=== PATIENT | male | born 1970 | race Two or more races ===

== ENCOUNTER 2016-02-27 15:07 | Inpatient (IN) | payer SELFPAY ==
--- NOTE | 2016-02-27 15:14 | ER Document Report ---
ED Medical Screen (RME) - General Stated Complaint: SYMPTOMS OF ALCOHOL WITHDRAWALS Notes: Patient is seeing things hearing voices family concerned about alcohol withdrawal although he had his last drink one hour ago. I greeted and performed a rapid initial assessment of this patient. Comprehensive ED assessment and evaluation of the patient, analysis of test results and completion of the medical decision making process will be conducted by additional ED providers. TRAVEL OUTSIDE OF THE [place] IN LAST 30 DAYS: No - Related Data Allergies/Adverse Reactions: Penicillins Allergy (Verified 07/28/15 05:39) Past Medical History - Past Medical History Cardiac Medical History: Reports: Hx Hypertension Pulmonary Medical History: Reports: Hx COPD Neurological Medical History: Reports: Hx Seizures Past Surgical History: Reports: Hx Abdominal Surgery, Hx Orthopedic Surgery - left shoulder - Immunizations Hx Diphtheria, Pertussis, Tetanus Vaccination: Yes
[2016-02-27] MEDS ORDERED: NORMAL SALINE 1000 ML 1,000 ML with POTASSIUM CHLORIDE 20 MEQ, MAGNESIUM SULFATE 8 MEQ,... IV PRN ×10 (15:16→15:59)
[2016-02-27] MEDS ORDERED: LORAZEPAM INJ 2 MG/1 ML VIAL IV ONE ×2 (16:00→16:55)
[2016-02-27] MEDS ORDERED: LORAZEPAM INJ 2 MG/1 ML VIAL IV PRN (16:00)
--- NOTE | 2016-02-27 16:04 | ER Document Report ---
ED General - General Chief Complaint: Alcohol Withdrawl Stated Complaint: SYMPTOMS OF ALCOHOL WITHDRAWALS Time seen by provider: 16:02 Mode of Arrival: Ambulatory Information source: Patient Notes: This is a 45-year-old man with a history of chronic alcohol dependency, alcoholic pancreatitis, alcohol withdrawal seizures. The patient is brought into the emergency room today because of confusion, hallucinations in the setting of decreased alcohol intake. The patient's significant other is at the bedside and is concern for alcohol withdrawal seizures. TRAVEL OUTSIDE OF THE [place] IN LAST 30 DAYS: No - HPI Onset: Last week Onset/Duration: Gradual Quality of pain: Dull Severity: Moderate Pain Level: Denies Associated symptoms: Other. denies: Chest pain, Fever Exacerbated by: Denies Relieved by: Denies Similar symptoms previously: Yes Recently seen / treated by doctor: Yes - Related Data Allergies/Adverse Reactions: Penicillins Allergy (Verified 07/28/15 05:39) Past Medical History - General Information source: Patient - Social History Smoking Status: Current Every Day Smoker Cigarette use (# per day): Yes - 1 pack per day Chew tobacco use (# tins/day): No Smoking Education Provided: No Frequency of alcohol use: Heavy Drug Abuse: None Lives with: Spouse/Significant other Family History: Reviewed & Not Pertinent Patient has suicidal ideation: No Patient has homicidal ideation: No - Past Medical History Cardiac Medical History: Reports: Hx Hypertension Pulmonary Medical History: Reports: Hx COPD Neurological Medical History: Reports: Hx Seizures Renal/ Medical History: Denies: Hx Peritoneal Dialysis Past Surgical History: Reports: Hx Abdominal Surgery, Hx Orthopedic Surgery - left shoulder - Immunizations Hx Diphtheria, Pertussis, Tetanus Vaccination: Yes Review of Systems - Review of Systems Constitutional: denies: Chills, Fever EENT: No symptoms reported Cardiovascular: No symptoms reported Respiratory: No symptoms reported Gastrointestinal: See HPI Genitourinary: No symptoms reported Male Genitourinary: No symptoms reported Musculoskeletal: No symptoms reported Skin: No symptoms reported Hematologic/Lymphatic: No symptoms reported Neurological/Psychological: See HPI Physical Exam - Vital signs Vitals: Temp Pulse Resp BP Pulse Ox 97.9 F 100 16 149/94 H 95 02/27/16 15:14 02/27/16 15:14 02/27/16 15:14 02/27/16 15:14 02/27/16 15:14 Notes: Physical exam: GENERAL: 45-year-old man, alert, confused, tremulous HEAD: Atraumatic, normocephalic. EYES: Pupils equal round and reactive to light, extraocular movements intact, sclera anicteric, conjunctiva are normal. ENT: TMs normal, nares patent, oropharynx clear without exudates. Moist mucous membranes. NECK: Normal range of motion, supple without lymphadenopathy or JVD. LUNGS: Breath sounds clear to auscultation bilaterally and equal. No wheezes rales or rhonchi. HEART: Regular rate and rhythm without murmurs, rubs or gallops. ABDOMEN: Soft, nontender, normoactive bowel sounds. No guarding, no rebound. No masses appreciated. EXTREMITIES: Normal range of motion, no pitting or edema. No clubbing or cyanosis. NEUROLOGICAL: Cranial nerves II through XII grossly intact. Patient is moving all extremities, he is confused, doesn't quite know where he is. PSYCH: Confused SKIN: Warm, Dry, normal turgor, no rashes or lesions noted. Course - Vital Signs Vital signs: Temp Pulse Resp BP Pulse Ox 98.4 F 86 19 125/79 94 02/27/16 18:05 02/27/16 18:05 02/27/16 19:01 02/27/16 19:00 02/27/16 19:01 - Laboratory Result Diagrams: 02/27/16 15:25 02/27/16 15:25 Laboratory results interpreted by me: 02/27/16 02/27/16 02/27/16 15:25 15:25 15:25 MCV 98 H RDW 16.0 H Carbon Dioxide 18 L Anion Gap 21 H BUN 6 L Glucose 253 H AST 204 H ALT 225 H Lipase 545.5 H Urine Glucose (UA) Urine Blood Serum Alcohol 339 H* 02/27/16 16:15 MCV RDW Carbon Dioxide Anion Gap BUN Glucose AST ALT Lipase Urine Glucose (UA) 50 H Urine Blood SMALL H Serum Alcohol - EKG Interpretation by Me Rate: Normal Rhythm: NSR - EKG shows normal sinus rhythm with a ventricular rate of 83, no acute ST-T wave changes. The QTC is 428 Critical Care Note - Critical Care Note Total time excluding time spent on procedures (mins): 60 Discharge - Discharge Clinical Impression: alcoholic pancreatitis, acute alcohol withdrawal Condition: Stable Disposition: ADMITTED INPATIENT Admitting Provider: Hospitalist - Dr. Lizarraga Unit Admitted: IMCU
[2016-02-27 16:10] LABS: ALANINE AMINOTRANSFERASE 225 U/L (21-72); ALBUMIN 4.9 g/dL (3.5-5.0); ALKALINE PHOSPHATASE 79 U/L (38-126); ASPARTATE AMINO TRANSFERASE 204 U/L (17-59); BILIRUBIN,TOTAL 0.6 mg/dL (0.2-1.3); BLOOD UREA NITROGEN 6 mg/dL (7-20); CARBON DIOXIDE 18 mmol/L (22-30); CHLORIDE 100 mmol/L (98-107); CREATININE RESULT 0.64 mg/dL (0.52-1.25); GLUCOSE 253 mg/dL (75-110); LIPASE 545.5 U/L (23-300); TOTAL PROTEIN 7.5 g/dL (6.3-8.2)
[2016-02-27 16:17] LABS: POTASSIUM 4.4 mmol/L (3.6-5.0); SODIUM 138.8 mmol/L (137-145)
[2016-02-27] MEDS ORDERED: LORAZEPAM INJ 2 MG/1 ML VIAL IM ONE (16:17)
[2016-02-27 16:19] LABS: ANION GAP 21 (5-19)
[2016-02-27 16:34] LABS: APPEARANCE,URINE CLEAR; BILIRUBIN,URINE NEGATIVE (NEGATIVE); GLUCOSE, URINE 50 mg/dL (NEGATIVE); KETONES,URINE NEGATIVE (NEGATIVE); LEUKOCYTE ESTERASE,URINE NEGATIVE (NEGATIVE); NITRITE,URINE NEGATIVE (NEGATIVE); PROTEIN,URINE NEGATIVE (NEGATIVE); URINE SPECIFIC GRAVITY 1.002; UROBILINOGEN,URINE NEGATIVE mg/dL (<2.0)
[2016-02-27 16:47] LABS: MAGNESIUM 1.8 mg/dL (1.6-2.3)
[2016-02-27] MEDS ORDERED: NORMAL SALINE 1000 ML 1,000 ML IV PRN (16:56)
[2016-02-27 16:57] LABS: URINE BARBITURATES SCREEN NEGATIVE; URINE METHADONE SCREEN NEGATIVE; URINE PHENCYCLIDINE SCREEN NEGATIVE
[2016-02-27 18:27] LABS: ABSOLUTE EOSINOPHILS # (AUTO) 0.1 10^3/uL (0.0-0.6); ABSOLUTE LYMPHOCYTES (AUTO) 1.8 10^3/uL (0.5-4.7); ABSOLUTE MONOCYTES (AUTO) 0.4 10^3/uL (0.1-1.4); ABSOLUTE NEUT (AUTO) 2.3 10^3/uL (1.7-8.2); BASOPHILS % (AUTO) 0.9 % (0-2); EOSINOPHILS % (AUTO) 1.9 % (0-6); HEMATOCRIT 47.2 % (37.9-51.0); HEMOGLOBIN 15.2 g/dL (13.5-17.0); HGB HCT DIFFERENCE -1.6; MEAN CORPUSCULAR HEMOGLOBIN 31.4 pg (27.0-33.4); MEAN CORPUSCULAR HGB CONC 32.2 g/dL (32.0-36.0); MEAN CORPUSCULAR VOLUME 98 fl (80-97); MONOCYTES % (AUTO) 7.8 % (3-13); RED BLOOD COUNT 4.84 10^6/uL (4.35-5.55); SEGMENTED NEUTROPHILS % (AUTO) 50.4 % (42-78); WHITE BLOOD COUNT 4.5 10^3/uL (4.0-10.5)
--- NOTE | 2016-02-27 18:35 | EKG REPORT ---
SEVERITY:- OTHERWISE NORMAL ECG - SINUS RHYTHM LOW VOLTAGE IN FRONTAL LEADS : Confirmed by: Sandra Ledezma MD 27-Feb-2016 18:34:53
[2016-02-27] MEDS: NORMAL SALINE 1000 ML 1,000 ML IV PRN (20:23)
[2016-02-27] MEDS ORDERED: DEXTROSE 40% GEL 15 GM TUBE PO PRN ×2 (20:54)
[2016-02-27] MEDS ORDERED: INSULIN LISPRO 100 UNIT/ML 3 ML VIAL SUBCUT PRN (20:54)
[2016-02-27] MEDS ORDERED: GLUCAGON,HUMAN RECOMB 1 MG INJ IM PRN (20:54)
[2016-02-27] MEDS ORDERED: NORMAL SALINE 1000 ML 2,000 ML IV ONE (20:54)
[2016-02-27] MEDS ORDERED: DEXTROSE 50%-WATER 25 GM/50 ML DISP.SYRIN IV PRN ×2 (20:54)
[2016-02-27] MEDS ORDERED: PROMETHAZINE HCL INJ 25 MG/1 ML VIAL IV PRN (22:08)
[2016-02-27 22:17] LABS: ANION GAP 13 (5-19); BLOOD UREA NITROGEN 6 mg/dL (7-20); CALCIUM 8.1 mg/dL (8.4-10.2); CARBON DIOXIDE 21 mmol/L (22-30); CHLORIDE 109 mmol/L (98-107); CREATININE RESULT 0.61 mg/dL (0.52-1.25); GLUCOSE 81 mg/dL (75-110); POTASSIUM 4.3 mmol/L (3.6-5.0); SODIUM 143.2 mmol/L (137-145)
[2016-02-27] MEDS ORDERED: NICOTINE 21 MG/24 HR PATCH.TD24 TD PRN (22:22)
--- NOTE | 2016-02-27 22:26 | PDOC H&P ---
History of Present Illness Admission Date/PCP: 02/27/16 20:24 [facility] Patient complains of: Abdominal pain, auditory and visual hallucinations History of Present Illness: SHAQ ROCHE is a 45 year old Armenian male, with known ongoing alcohol abuse, up to a gallon of vodka a day, who presents to the emergency room for evaluation of above complaints. Patient has been discussed with emergency room physician who evaluated the patient. Describes a 2 day history of several episodes of nausea and nonbloody, non- coffee ground emesis, along with "the shakes," confusion, and approximately 24- hour history of auditory and visual hallucinations. Also describes the onset during the same time span of stabbing left lower quadrant abdominal pain. Nothing makes the pain worse. Little if any by mouth intake over the past 3 days.. Denies diarrhea or dysuria. Laboratory results are listed in [facility] and are reviewed. X-ray summary results are listed below, with full report(s) reviewed. . EKG reviewed. And compared to prior tracing from September 24 of last year. 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 Pack of cigarettes per day. Alcohol use as noted above. Rare marijuana. Allergies/adverse reactions are listed in [facility] and are reviewed. NKDA. Home medications none REVIEW OF SYSTEMS: Constitutional: See history and present illness. Eyes: Wears glasses. ENT: No swallowing problems or complaints. No hearing problems or complaints. Pulmonary: No current complaints. Cardiovascular: No current complaints, including chest pain. Gastrointestinal: See history and present illness. Skin: No current complaints, including rashes. Hematologic: Easy bruising. Neurologic: No current complaints, including numbness or tingling. Musculoskeletal: Joint pain from arthritis. Psychiatric: Anxiety depression; denies suicidal or homicidal ideation. See history and present illness. Endocrine: No current complaints, including polyuria. Genitourinary: No current complaints, including dysuria. PHYSICAL EXAMINATION: 5 feet 10 inches tall. 73.2 kg. BMI 23.2 kg/m. The pressure 132/82. Pulse 84 and regular. 94% saturation on room air. Respirations are 20 and unlabored. Temperature 98.4. Thin otherwise well-developed chronically ill-appearing male who appears a number of years older than his stated age. Appears not to feel very well. Awake alert pleasant and cooperative however. Mildly anxious. No agitation. No tremor. Ex girlfriend is present at his side; patient approves. Skin is warm and dry. No grossly obvious evidence of rash in areas of skin examined. No subcutaneous nodules palpated. ENT: Hearing grossly normal to normal conversation. Tongue midline on protrusion pink and slightly tacky Eyes: No scleral icterus. Pupils equal and reactive to light at 4 mm. [place] conjunctivae. Neck is supple and nontender to gentle active range of motion and palpation. Midline trachea. No palpable thyroid nodule mass enlargement or tenderness. Lymphatic: No palpable cervical or clavicular nodes. Neck and lymphatic exams limited by patient body habitus. Psychiatric: Fair insight into acute and chronic medical issues. Oriented to time location and why here. Lungs: Auscultation reveals clear and equal breath sounds bilaterally. No use of accessory respiratory muscles. Cardiovascular: Heart regular rate and rhythm, without gallop murmur or rub. No carotid or abdominal aortic bruits. No ankle or pedal edema. Faintly palpable dorsalis pedis pulses. Abdomen:soft, nontender other than scant left lower quadrant discomfort to palpation with positive bowel sounds. No upper abdominal mass or organomegaly is palpated. Extremities: Feet are warm and dry. No calf tenderness to compression. No grossly obvious visual evidence of calf swelling. Gentle manipulation of lower extremities fails to reveal any obvious evidence of injury or instability to knees hips or ankles. Neurologic: Moves upper extremities grossly normally. Patellar reflexes absent. Absent Babinski. Light touch is intact at feet. Dorsiflexion and plantarflexion of feet 5 / 5 and symmetric. Past Medical History Cardiac Medical History: Reports: Hypertension Denies: Congestive Heart Failure, DVT, Myocardial Infarction, Hyperlipidema, Pulmonary Embolism EENT Medical History: Reports: Eyes - Reading glasses Denies: Ears, Throat Neurological Medical History: Reports: Seizures - [place] secondary to alcohol withdrawal. Denies: Hemorrhagic CVA, Ischemic CVA Endocrine Medical History: Denies: Diabetes Mellitus Type 1, Diabetes Mellitus Type 2, Hyperthyroidism, Hypothyroidism Renal/ Medical History: Reports: Chronic Kidney Disease Denies: Nephrolithiasis GI Medical History: Denies: Cirrhosis, Hepatitis, Peptic Ulcer Disease Musculoskeltal Medical History: Reports: Arthritis Skin Medical History: Reports: None Denies: Eczema, Psoriasis Psychiatric Medical History: Reports: Alcohol Dependency, Depression, General Anxiety Disorder, Tobacco Dependency Denies: Substance Abuse Infectious Medical History: Denies: Hepatitis B, Hepatitis C Past Surgical History Past Surgical History: Reports: Orthopedic Surgery - left shoulder Social History Information Source: Patient, Friend, Emergency Med Personnel, [facility] Records Lives with: Spouse/Significant other Smoking Status: Current Every Day Smoker Frequency of Alcohol Use: Heavy Hx Recreational Drug Use: Yes Drugs: Marijuana Hx Prescription Drug Abuse: No - Advance Directive Resuscitation Status: Full Code Surrogate healthcare decision maker:: ex Girl friend Zoila Navarrete [phone] Family History Family History: Reviewed & Not Pertinent Parental Family History Reviewed: Yes Children Family History Reviewed: Yes Sibling(s) Family History Reviewed.: Yes Medication/Allergy Home Medications: No Home Medications 02/27/16 Allergies/Adverse Reactions: Penicillins Allergy (Verified 07/28/15 05:39) Physical Exam Vital Signs: Temp Pulse Resp BP Pulse Ox 98.4 F 86 19 132/82 H 95 02/27/16 18:05 02/27/16 18:05 02/27/16 20:01 02/27/16 20:00 02/27/16 20:01 Results Impressions: Chest X-Ray 02/27/16 19:10 IMPRESSION: Retrocardiac opacity may represent a developing left lower lobe pneumonitis. Recommend clinical correlation. Assessment & Plan - Diagnosis (2) Acidosis Is this a current diagnosis for this admission?: YesPlan: Serial labs. Vigorous IV fluid hydration. (3) Acute alcoholic pancreatitis Qualifiers: Acute pancreatitis complication: unspecified Qualified Code(s): K85.20 - Alcohol induced acute pancreatitis without necrosis or infection Is this a current diagnosis for this admission?: YesPlan: Standard pancreatitis protocol, including vigorous IV fluid hydration, IV Pepcid for gastritis prophylaxis, ice chips only, strict intake and output, and when necessary medication for control of pain and nausea and vomiting. I have strongly encouraged patient not to get out of bed without notifying staff , to avoid a fall with injury. Knee high SCDs for DVT prophylaxis, along with subcutaneous Lovenox . Impression and plans were discussed with patient and former girlfriend, both of whom concur. Time spent in evaluation and management of patient: 65 minutes. (4) DVT prophylaxis Is this a current diagnosis for this admission?: Yes (5) Elevated LFTs Is this a current diagnosis for this admission?: YesPlan: Likely secondary to alcohol abuse. Follow-up chemistry. (6) Hallucinations due to alcohol Is this a current diagnosis for this admission?: YesPlan: Alcohol withdrawal protocol, using parenteral Ativan, and daily banana bag. (7) Hepatic hemangioma Is this a current diagnosis for this admission?: YesPlan: Noted on prior CT scan, with follow-up recommended. CT to be ordered during this hospital stay. (8) Hyperglycemia Is this a current diagnosis for this admission?: YesPlan: Accu-Cheks with appropriate sliding scale coverage. (9) Alcohol dependency Qualifiers: Substance use status: with intoxication Complication of substance- induced condition: with unspecified complication Qualified Code(s): F10.229 - Alcohol dependence with intoxication, unspecified Is this a current diagnosis for this admission?: Yes (10) Tobacco abuse Is this a current diagnosis for this admission?: YesPlan: When necessary nicotine patch. (11) HTN (hypertension) Qualifiers: Hypertension type: essential hypertension Qualified Code(s): I10 - Essential (primary) hypertension Is this a current diagnosis for this admission?: YesPlan: Currently on no medication for same. When necessary antihypertensive. - Inpatient Certification Based on my medical assessment, after consideration of the patient's comorbidities, presenting symptoms, or acuity I expect that the services needed warrant INPATIENT care.: Yes I certify that my determination is in accordance with my understanding of Medicare's requirements for reasonable and necessary INPATIENT services [42 CFR 412.3e].: Yes Medical Necessity: Significant Comorbidiites Make Outpatient Treatment Too Risky , Need For IV Fluids, Need For Continuous Telemetry Monitoring, Need for Pain Control, Risk of Complication if Not Cared For in Hospital, Risk of Diagnosis Which Will Require Inpatient Eval/Care/Monitoring Post Hospital Care: D/C or Transfer Summary
[2016-02-27] MEDS ORDERED: RINGERS SOLUTION,LACTATED 1,000 ML IV ONE (23:08)
[2016-02-28] MEDS: LORAZEPAM INJ 2 MG/1 ML VIAL (TAPER DOSING) IV SCH ×4 (01:30→17:34)
[2016-02-28] MEDS: NORMAL SALINE 1000 ML 1,000 ML IV PRN ×2 (02:35→06:07)
[2016-02-28] MEDS ORDERED: LORAZEPAM INJ 2 MG/1 ML VIAL ONE (05:54)
[2016-02-28] MEDS: ACETAMINOPHEN 325 MG TABLET PO PRN (06:05)
[2016-02-28] MEDS ORDERED: ENOXAPARIN SODIUM INJ 40 MG/0.4 ML DISP.SYRIN SUBCUT SCH (08:00)
[2016-02-28 08:03] LABS: ABSOLUTE EOSINOPHILS # (AUTO) 0.2 10^3/uL (0.0-0.6); ABSOLUTE LYMPHOCYTES (AUTO) 1.6 10^3/uL (0.5-4.7); ABSOLUTE MONOCYTES (AUTO) 0.3 10^3/uL (0.1-1.4); BASOPHILS % (AUTO) 0.6 % (0-2); EOSINOPHILS % (AUTO) 2.3 % (0-6); HEMATOCRIT 39.7 % (37.9-51.0); HEMOGLOBIN 13.2 g/dL (13.5-17.0); HGB HCT DIFFERENCE -0.1; LYMPHOCYTES % (AUTO) 22.4 % (13-45); MEAN CORPUSCULAR HEMOGLOBIN 31.6 pg (27.0-33.4); MEAN CORPUSCULAR HGB CONC 33.2 g/dL (32.0-36.0); MEAN CORPUSCULAR VOLUME 95 fl (80-97); MONOCYTES % (AUTO) 4.5 % (3-13); RED BLOOD COUNT 4.16 10^6/uL (4.35-5.55); RED CELL DISTRIBUTION WIDTH 15.6 % (11.5-14.0); SEGMENTED NEUTROPHILS % (AUTO) 70.2 % (42-78); WHITE BLOOD COUNT 7.2 10^3/uL (4.0-10.5)
[2016-02-28 08:12] LABS: ALANINE AMINOTRANSFERASE 151 U/L (21-72); ALBUMIN 3.2 g/dL (3.5-5.0); ALKALINE PHOSPHATASE 61 U/L (38-126); ANION GAP 7 (5-19); ASPARTATE AMINO TRANSFERASE 119 U/L (17-59); BILIRUBIN,TOTAL 1.1 mg/dL (0.2-1.3); BLOOD UREA NITROGEN 6 mg/dL (7-20); CALCIUM 8.3 mg/dL (8.4-10.2); CARBON DIOXIDE 25 mmol/L (22-30); CHLORIDE 103 mmol/L (98-107); CHOLESTEROL 189.25 mg/dL (0-200); CREATININE RESULT 0.55 mg/dL (0.52-1.25); Direct HDL 108 mg/dL (>40); GLUCOSE 71 mg/dL (75-110); POTASSIUM 4.2 mmol/L (3.6-5.0); SODIUM 134.8 mmol/L (137-145); TOTAL PROTEIN 5.7 g/dL (6.3-8.2); TRIGLYCERIDES 31 mg/dL (<150)
[2016-02-28 08:22] LABS: DIRECT LDL 45 mg/dL (<100)
--- NOTE | 2016-02-28 08:57 | PDOC PROGRESS REPORT ---
Subjective Progress Note for:: 02/28/16 Subjective:: Patient reports dizziness and some generalized weakness. No nausea or vomiting. Patient wants to eat. No diarrhea. No chills or fever. Occasional cough. Denies shortness of breath at this time. Physical Exam Vital Signs: Temp Pulse Resp BP Pulse Ox 98.1 F 84 20 137/80 H 93 02/28/16 08:03 02/28/16 08:11 02/28/16 08:03 02/28/16 08:03 02/28/16 08:03 Intake & Output 02/27/16 02/28/16 02/29/16 06:59 06:59 06:59 Intake Total 842 Output Total 400 Balance 442 Weight 76.5 kg General appearance: PRESENT: no acute distress, cooperative Head exam: PRESENT: normocephalic Eye exam: PRESENT: EOMI Mouth exam: PRESENT: moist, neck supple Neck exam: ABSENT: JVD Respiratory exam: PRESENT: clear to auscultation iván. ABSENT: rhonchi, wheezes Cardiovascular exam: PRESENT: RRR. ABSENT: gallop GI/Abdominal exam: PRESENT: normal bowel sounds, soft. ABSENT: distended, tenderness Extremities exam: ABSENT: pedal edema Neurological exam: PRESENT: alert, awake Skin exam: PRESENT: dry, warm. ABSENT: cyanosis Results Laboratory Results: 02/28/16 07:17 02/28/16 07:17 02/28/16 02/28/16 07:17 07:17 WBC 7.2 RBC 4.16 L Hgb 13.2 L Hct 39.7 MCV 95 MCH 31.6 MCHC 33.2 RDW 15.6 H Plt Count 173 Seg Neutrophils % 70.2 Lymphocytes % 22.4 Monocytes % 4.5 Eosinophils % 2.3 Basophils % 0.6 Absolute Neutrophils 5.0 Absolute Lymphocytes 1.6 Absolute Monocytes 0.3 Absolute Eosinophils 0.2 Absolute Basophils 0.0 Sodium 134.8 L Potassium 4.2 Chloride 103 Carbon Dioxide 25 Anion Gap 7 BUN 6 L Creatinine 0.55 Est GFR ( Amer) > 60 Est GFR (Non-Af Amer) > 60 Glucose 71 L Calcium 8.3 L Total Bilirubin 1.1 AST 119 H ALT 151 H Alkaline Phosphatase 61 Total Protein 5.7 L Albumin 3.2 L Triglycerides 31 Cholesterol 189.25 LDL Cholesterol Direct 45 VLDL Cholesterol 6.0 L HDL Cholesterol 108 Impressions: Chest X-Ray 02/27/16 19:10 IMPRESSION: Retrocardiac opacity may represent a developing left lower lobe pneumonitis. Recommend clinical correlation. Assessment & Plan - Diagnosis (1) Alcohol withdrawal Qualifiers: Complication of substance-induced condition: with unspecified complication Qualified Code(s): F10.239 - Alcohol dependence with withdrawal, unspecified Is this a current diagnosis for this admission?: Yes (2) Aspiration pneumonia Qualifiers: Aspiration pneumonia type: unspecified Laterality: left Lung location: lower lobe of lung Qualified Code(s): J69.0 - Pneumonitis due to inhalation of food and vomit (3) Elevated LFTs Is this a current diagnosis for this admission?: Yes (4) HTN (hypertension) Qualifiers: Hypertension type: essential hypertension Qualified Code(s): I10 - Essential (primary) hypertension Is this a current diagnosis for this admission?: Yes (5) COPD (chronic obstructive pulmonary disease) Qualifiers: COPD type: unspecified COPD Qualified Code(s): J44.9 - Chronic obstructive pulmonary disease, unspecified Is this a current diagnosis for this admission?: Yes (6) History of seizure Is this a current diagnosis for this admission?: Yes - Time Time Spent with patient: 25-34 minutes - Plan Summary Plan Summary: Continue IV hydration and vitamin supplementation. Continue Ativan. Obtain CT scan of the head without contrast. We'll try to put the patient on clear liquid diet. Check TSH and monitor electrolytes. Begin antibiotic for aspiration pneumonia.
[2016-02-28] MEDS: FAMOTIDINE INJ/PF 20 MG/2 ML SDV IV SCH ×2 (09:43→21:24)
[2016-02-28] MEDS: DOCUSATE SODIUM 100 MG CAPSULE PO SCH ×2 (09:43→17:33)
[2016-02-28] MEDS: LEVOFLOXACIN 750 MG/D5W RTU 150 ML IV SCH (09:44)
[2016-02-28] MEDS ORDERED: CLINDAMYCIN 600 MG/D5W RTU 600 MG/50 ML RTUPB IV ONE (10:00)
[2016-02-28] MEDS ORDERED: ENOXAPARIN SODIUM INJ 40 MG/0.4 ML DISP.SYRIN SUBCUT ONE (10:00)
[2016-02-28] MEDS: CLINDAMYCIN 600 MG/D5W RTU 600 MG/50 ML RTUPB IV SCH ×2 (13:36→21:23)
[2016-02-28] MEDS: NORMAL SALINE 1000 ML 1,000 ML with THIAMINE HCL 100 MG, MVI, ADULT NO.1 WITH VIT K 10 ... IV PRN ×4 (15:28)
[2016-02-28] MEDS: MORPHINE SULFATE 10 MG/ML INJ IV PRN (22:04)
[2016-02-29] MEDS ORDERED: LORAZEPAM INJ 2 MG/1 ML VIAL IV PRN (01:34)
[2016-02-29] MEDS: LORAZEPAM INJ 2 MG/1 ML VIAL IV PRN ×3 (02:49→22:10)
[2016-02-29] MEDS: ACETAMINOPHEN 325 MG TABLET PO PRN ×2 (04:00→21:51)
[2016-02-29] MEDS: NORMAL SALINE 1000 ML 1,000 ML IV PRN ×2 (04:37→23:07)
[2016-02-29] MEDS: CLINDAMYCIN 600 MG/D5W RTU 600 MG/50 ML RTUPB IV SCH ×3 (05:43→21:49)
[2016-02-29 06:38] LABS: HEMATOCRIT 40.7 % (37.9-51.0); HEMOGLOBIN 13.3 g/dL (13.5-17.0); HGB HCT DIFFERENCE -0.8; MEAN CORPUSCULAR HEMOGLOBIN 31.2 pg (27.0-33.4); MEAN CORPUSCULAR HGB CONC 32.6 g/dL (32.0-36.0); MEAN CORPUSCULAR VOLUME 96 fl (80-97); RED BLOOD COUNT 4.25 10^6/uL (4.35-5.55); RED CELL DISTRIBUTION WIDTH 15.9 % (11.5-14.0); WHITE BLOOD COUNT 7.4 10^3/uL (4.0-10.5)
[2016-02-29 06:55] LABS: ANION GAP 9 (5-19); BLOOD UREA NITROGEN 8 mg/dL (7-20); CALCIUM 8.8 mg/dL (8.4-10.2); CARBON DIOXIDE 25 mmol/L (22-30); CHLORIDE 100 mmol/L (98-107); CREATININE RESULT 0.64 mg/dL (0.52-1.25); GLUCOSE 95 mg/dL (75-110); MAGNESIUM 1.5 mg/dL (1.6-2.3); PHOSPHORUS 4.7 mg/dL (2.5-4.5); POTASSIUM 3.8 mmol/L (3.6-5.0)
[2016-02-29] MEDS: ENOXAPARIN SODIUM INJ 40 MG/0.4 ML DISP.SYRIN SUBCUT SCH (07:34)
[2016-02-29] MEDS: MAGNESIUM SULFATE/D5W 1 GM/100 ML RTUPB IV SCH ×2 (08:25→09:32)
[2016-02-29] MEDS: FAMOTIDINE INJ/PF 20 MG/2 ML SDV IV SCH ×2 (09:31→21:49)
[2016-02-29] MEDS: DOCUSATE SODIUM 100 MG CAPSULE PO SCH ×2 (09:32→17:29)
[2016-02-29] MEDS: LEVOFLOXACIN 750 MG/D5W RTU 150 ML IV SCH (09:33)
--- NOTE | 2016-02-29 11:23 | PDOC PROGRESS REPORT ---
Subjective Progress Note for:: 02/29/16 Subjective:: Patient is confused. Physical Exam Vital Signs: Temp Pulse Resp BP Pulse Ox 97.8 F 62 19 144/87 H 96 02/29/16 07:32 02/29/16 10:00 02/29/16 07:32 02/29/16 07:32 02/29/16 07:32 Intake & Output 02/28/16 02/29/16 03/01/16 06:59 06:59 06:59 Intake Total 842 4703 Output Total 400 1400 Balance 442 3303 Weight 76.5 kg 73.3 kg General appearance: PRESENT: no acute distress, well-developed, well-nourished Head exam: PRESENT: atraumatic, normocephalic Eye exam: PRESENT: conjunctiva pink Mouth exam: PRESENT: moist, tongue midline Neck exam: ABSENT: carotid bruit, JVD, lymphadenopathy, thyromegaly Respiratory exam: PRESENT: rhonchi - Coarse rhonchi bilaterally.. ABSENT: rales , wheezes Cardiovascular exam: PRESENT: RRR. ABSENT: diastolic murmur, rubs, systolic murmur GI/Abdominal exam: PRESENT: normal bowel sounds, soft. ABSENT: distended, guarding, mass, organolmegaly, rebound, tenderness Extremities exam: ABSENT: calf tenderness, clubbing, pedal edema Neurological exam: PRESENT: awake, oriented to person, oriented to place, CN II- XII grossly intact. ABSENT: oriented to time, oriented to situation, motor sensory deficit Psychiatric exam: PRESENT: unusual affect Skin exam: PRESENT: dry, intact, warm. ABSENT: cyanosis, rash Results Laboratory Results: 02/29/16 06:11 02/29/16 06:11 02/29/16 02/29/16 06:11 06:11 WBC 7.4 RBC 4.25 L Hgb 13.3 L Hct 40.7 MCV 96 MCH 31.2 MCHC 32.6 RDW 15.9 H Plt Count 143 L Sodium 134.0 L Potassium 3.8 Chloride 100 Carbon Dioxide 25 Anion Gap 9 BUN 8 Creatinine 0.64 Est GFR ( Amer) > 60 Est GFR (Non-Af Amer) > 60 Glucose 95 Calcium 8.8 Phosphorus 4.7 H Magnesium 1.5 L Impressions: Chest X-Ray 02/27/16 19:10 IMPRESSION: Retrocardiac opacity may represent a developing left lower lobe pneumonitis. Recommend clinical correlation. Abdomen/Pelvis CT 02/28/16 00:00 IMPRESSION: DIFFUSE FATTY INFILTRATION OF THE LIVER. LESION IN THE LEFT LOBE HAS CHARACTERISTICS OF A HEMANGIOMA. NO OTHER SIGNIFICANT OR ACUTE FINDING IN THE ABDOMEN OR PELVIS ON CT SCAN WITH IV CONTRAST. Head CT 02/28/16 00:00 IMPRESSION: MILD CHRONIC CHANGES OF ATROPHY AND MICROVASCULAR ISCHEMIA. NO ACUTE PROCESS. Assessment & Plan - Diagnosis (1) Aspiration pneumonia Qualifiers: Aspiration pneumonia type: unspecified Laterality: left Lung location: lower lobe of lung Qualified Code(s): J69.0 - Pneumonitis due to inhalation of food and vomit Is this a current diagnosis for this admission?: YesPlan: The patient is oxygenating adequately. Continue with Levaquin and clindamycin. (2) Alcohol withdrawal Qualifiers: Complication of substance-induced condition: with unspecified complication Qualified Code(s): F10.239 - Alcohol dependence with withdrawal, unspecified Is this a current diagnosis for this admission?: YesPlan: The patient is confused. He is getting Ativan as well as vitamin supplementation. (3) Hypomagnesemia Is this a current diagnosis for this admission?: YesPlan: Patient will get IV magnesium today. (4) COPD (chronic obstructive pulmonary disease) Qualifiers: COPD type: unspecified COPD Qualified Code(s): J44.9 - Chronic obstructive pulmonary disease, unspecified Is this a current diagnosis for this admission?: YesPlan: No wheezing on exam today. (5) Elevated LFTs Is this a current diagnosis for this admission?: YesPlan: Most likely secondary to alcohol use. (6) History of seizure Is this a current diagnosis for this admission?: YesPlan: No seizures overnight. (7) Tobacco abuse Is this a current diagnosis for this admission?: Yes (8) Thiamine deficiency Is this a current diagnosis for this admission?: YesPlan: Patient is getting thiamine replacement. (9) HTN (hypertension) Qualifiers: Hypertension type: essential hypertension Qualified Code(s): I10 - Essential (primary) hypertension Is this a current diagnosis for this admission?: YesPlan: Blood pressure has been elevated but that may be related to his delirium tremens. - Time Time Spent with patient: 25-34 minutes - Inpatient Certification Medical Necessity: Need for Neurological Checks
[2016-02-29] MEDS: NORMAL SALINE 1000 ML 1,000 ML with THIAMINE HCL 100 MG, MVI, ADULT NO.1 WITH VIT K 10 ... IV PRN ×4 (16:22)
[2016-03-01] MEDS: LORAZEPAM INJ 2 MG/1 ML VIAL (TAPER DOSING) IV SCH ×4 (00:47→17:45)
[2016-03-01] MEDS: LORAZEPAM INJ 2 MG/1 ML VIAL IV PRN ×2 (05:05→21:18)
[2016-03-01] MEDS: CLINDAMYCIN 600 MG/D5W RTU 600 MG/50 ML RTUPB IV SCH (05:06)
[2016-03-01 05:09] LABS: ABSOLUTE EOSINOPHILS # (AUTO) 0.1 10^3/uL (0.0-0.6); ABSOLUTE LYMPHOCYTES (AUTO) 1.3 10^3/uL (0.5-4.7); ABSOLUTE MONOCYTES (AUTO) 0.5 10^3/uL (0.1-1.4); ABSOLUTE NEUT (AUTO) 2.4 10^3/uL (1.7-8.2); BASOPHILS % (AUTO) 0.7 % (0-2); EOSINOPHILS % (AUTO) 3.2 % (0-6); HEMATOCRIT 39.6 % (37.9-51.0); HEMOGLOBIN 13.7 g/dL (13.5-17.0); HGB HCT DIFFERENCE 1.5; LYMPHOCYTES % (AUTO) 29.9 % (13-45); MEAN CORPUSCULAR HEMOGLOBIN 32.5 pg (27.0-33.4); MEAN CORPUSCULAR HGB CONC 34.5 g/dL (32.0-36.0); MEAN CORPUSCULAR VOLUME 94 fl (80-97); MONOCYTES % (AUTO) 12.2 % (3-13); WHITE BLOOD COUNT 4.5 10^3/uL (4.0-10.5)
[2016-03-01 05:29] LABS: ANION GAP 11 (5-19); BLOOD UREA NITROGEN 6 mg/dL (7-20); CARBON DIOXIDE 22 mmol/L (22-30); CHLORIDE 102 mmol/L (98-107); CREATININE RESULT 0.52 mg/dL (0.52-1.25); GLUCOSE 95 mg/dL (75-110); MAGNESIUM 1.7 mg/dL (1.6-2.3); POTASSIUM 3.8 mmol/L (3.6-5.0); SODIUM 135.2 mmol/L (137-145)
[2016-03-01] MEDS: NORMAL SALINE 1000 ML 1,000 ML IV PRN (09:00)
[2016-03-01] MEDS: ENOXAPARIN SODIUM INJ 40 MG/0.4 ML DISP.SYRIN SUBCUT SCH (09:00)
[2016-03-01] MEDS: DOCUSATE SODIUM 100 MG CAPSULE PO SCH ×2 (10:50→17:20)
[2016-03-01] MEDS: LEVOFLOXACIN 750 MG/D5W RTU 150 ML IV SCH (10:50)
[2016-03-01] MEDS: FAMOTIDINE INJ/PF 20 MG/2 ML SDV IV SCH ×2 (10:50→21:18)
[2016-03-01] MEDS ORDERED: LORAZEPAM 1 MG TABLET PO PRN (11:01)
--- NOTE | 2016-03-01 12:20 | PDOC PROGRESS REPORT ---
Subjective Progress Note for:: 03/01/16 Subjective:: Patient is somewhat confused Physical Exam Vital Signs: Temp Pulse Resp BP Pulse Ox 97.6 F 57 L 16 158/95 H 96 03/01/16 05:10 03/01/16 07:00 03/01/16 05:10 03/01/16 05:10 03/01/16 05:10 Intake & Output 02/29/16 03/01/16 03/02/16 06:59 06:59 06:59 Intake Total 4703 3262 Output Total 1400 Balance 3303 3262 Weight 73.3 kg 72.3 kg General appearance: PRESENT: no acute distress Eye exam: PRESENT: conjunctiva pink. ABSENT: scleral icterus Mouth exam: PRESENT: moist, tongue midline Neck exam: ABSENT: JVD Respiratory exam: PRESENT: clear to auscultation iván. ABSENT: rales, rhonchi, wheezes Cardiovascular exam: PRESENT: RRR. ABSENT: diastolic murmur, rubs, systolic murmur GI/Abdominal exam: PRESENT: normal bowel sounds, soft. ABSENT: distended, guarding, mass, organolmegaly, rebound, tenderness Extremities exam: ABSENT: calf tenderness, clubbing, pedal edema Neurological exam: PRESENT: alert, awake, oriented to person, oriented to place. ABSENT: oriented to time, oriented to situation Psychiatric exam: PRESENT: appropriate affect Skin exam: PRESENT: dry, intact, warm. ABSENT: cyanosis, rash Results Laboratory Results: 03/01/16 04:45 03/01/16 04:45 03/01/16 03/01/16 04:45 04:45 WBC 4.5 RBC 4.20 L Hgb 13.7 Hct 39.6 MCV 94 MCH 32.5 MCHC 34.5 RDW 16.0 H Plt Count 157 Seg Neutrophils % 54.0 Lymphocytes % 29.9 Monocytes % 12.2 Eosinophils % 3.2 Basophils % 0.7 Absolute Neutrophils 2.4 Absolute Lymphocytes 1.3 Absolute Monocytes 0.5 Absolute Eosinophils 0.1 Absolute Basophils 0.0 Sodium 135.2 L Potassium 3.8 Chloride 102 Carbon Dioxide 22 Anion Gap 11 BUN 6 L Creatinine 0.52 Est GFR ( Amer) > 60 Est GFR (Non-Af Amer) > 60 Glucose 95 Calcium 9.0 Magnesium 1.7 Impressions: Chest X-Ray 02/27/16 19:10 IMPRESSION: Retrocardiac opacity may represent a developing left lower lobe pneumonitis. Recommend clinical correlation. Abdomen/Pelvis CT 02/28/16 00:00 IMPRESSION: DIFFUSE FATTY INFILTRATION OF THE LIVER. LESION IN THE LEFT LOBE HAS CHARACTERISTICS OF A HEMANGIOMA. NO OTHER SIGNIFICANT OR ACUTE FINDING IN THE ABDOMEN OR PELVIS ON CT SCAN WITH IV CONTRAST. Head CT 02/28/16 00:00 IMPRESSION: MILD CHRONIC CHANGES OF ATROPHY AND MICROVASCULAR ISCHEMIA. NO ACUTE PROCESS. Assessment & Plan - Diagnosis (1) Aspiration pneumonia Qualifiers: Aspiration pneumonia type: unspecified Laterality: left Lung location: lower lobe of lung Qualified Code(s): J69.0 - Pneumonitis due to inhalation of food and vomit Is this a current diagnosis for this admission?: YesPlan: The patient is oxygenating adequately. Will change antibiotics to by mouth Levaquin. (2) Alcohol withdrawal Qualifiers: Complication of substance-induced condition: with unspecified complication Qualified Code(s): F10.239 - Alcohol dependence with withdrawal, unspecified Is this a current diagnosis for this admission?: YesPlan: The patient is still somewhat confused. He is getting Ativan as well as vitamin supplementation. (3) Hypomagnesemia Is this a current diagnosis for this admission?: YesPlan: Resolved (4) COPD (chronic obstructive pulmonary disease) Qualifiers: COPD type: unspecified COPD Qualified Code(s): J44.9 - Chronic obstructive pulmonary disease, unspecified Is this a current diagnosis for this admission?: YesPlan: No wheezing on exam today. (5) Elevated LFTs Is this a current diagnosis for this admission?: YesPlan: Most likely secondary to alcohol use. (6) History of seizure Is this a current diagnosis for this admission?: YesPlan: No seizures overnight. (7) Tobacco abuse Is this a current diagnosis for this admission?: Yes (8) Thiamine deficiency Is this a current diagnosis for this admission?: YesPlan: Patient is getting thiamine replacement. (9) HTN (hypertension) Qualifiers: Hypertension type: essential hypertension Qualified Code(s): I10 - Essential (primary) hypertension Is this a current diagnosis for this admission?: YesPlan: Blood pressure has been elevated but that may be related to his delirium tremens. - Time Time Spent with patient: 25-34 minutes - Inpatient Certification Medical Necessity: Need Close Monitoring Due to Risk of Patient Decompensation - Plan Summary Plan Summary: Patient is still confused but is improved from yesterday. Hopefully will improve well enough in the next 24-48 hours to be discharged home.
[2016-03-02] MEDS: LORAZEPAM INJ 2 MG/1 ML VIAL IV PRN ×2 (03:01→19:24)
[2016-03-02] MEDS: DOCUSATE SODIUM 100 MG CAPSULE PO SCH ×2 (09:29→18:17)
[2016-03-02] MEDS: ENOXAPARIN SODIUM INJ 40 MG/0.4 ML DISP.SYRIN SUBCUT SCH (09:29)
[2016-03-02] MEDS: FAMOTIDINE INJ/PF 20 MG/2 ML SDV IV SCH ×2 (09:33→22:35)
[2016-03-02] MEDS ORDERED: LEVOFLOXACIN 750 MG TABLET PO SCH (10:00)
--- NOTE | 2016-03-02 10:55 | PDOC PROGRESS REPORT ---
Subjective Progress Note for:: 03/02/16 Subjective:: Patient is somewhat confused but better than yesterday. Physical Exam Vital Signs: Temp Pulse Resp BP Pulse Ox 97.3 F 51 L 18 151/84 H 98 03/02/16 07:23 03/02/16 07:23 03/02/16 07:23 03/02/16 07:23 03/02/16 07:23 Intake & Output 03/01/16 03/02/16 03/03/16 06:59 06:59 06:59 Intake Total 3262 1415 Balance 3262 1415 Weight 72.3 kg 71.9 kg General appearance: PRESENT: no acute distress Eye exam: PRESENT: conjunctiva pink. ABSENT: scleral icterus Mouth exam: PRESENT: moist, tongue midline Neck exam: ABSENT: JVD Respiratory exam: PRESENT: clear to auscultation iván. ABSENT: rales, rhonchi, wheezes Cardiovascular exam: PRESENT: RRR. ABSENT: diastolic murmur, rubs, systolic murmur GI/Abdominal exam: PRESENT: normal bowel sounds, soft. ABSENT: distended, guarding, mass, organolmegaly, rebound, tenderness Extremities exam: ABSENT: calf tenderness, clubbing, pedal edema Neurological exam: PRESENT: awake, oriented to person, oriented to place, oriented to time. ABSENT: oriented to situation Psychiatric exam: PRESENT: flat affect Skin exam: PRESENT: dry, intact, warm. ABSENT: cyanosis, rash Results Laboratory Results: 03/01/16 04:45 03/01/16 04:45 Impressions: Chest X-Ray 02/27/16 19:10 IMPRESSION: Retrocardiac opacity may represent a developing left lower lobe pneumonitis. Recommend clinical correlation. Abdomen/Pelvis CT 02/28/16 00:00 IMPRESSION: DIFFUSE FATTY INFILTRATION OF THE LIVER. LESION IN THE LEFT LOBE HAS CHARACTERISTICS OF A HEMANGIOMA. NO OTHER SIGNIFICANT OR ACUTE FINDING IN THE ABDOMEN OR PELVIS ON CT SCAN WITH IV CONTRAST. Head CT 02/28/16 00:00 IMPRESSION: MILD CHRONIC CHANGES OF ATROPHY AND MICROVASCULAR ISCHEMIA. NO ACUTE PROCESS. Assessment & Plan - Diagnosis (1) Aspiration pneumonia Qualifiers: Aspiration pneumonia type: unspecified Laterality: left Lung location: lower lobe of lung Qualified Code(s): J69.0 - Pneumonitis due to inhalation of food and vomit Is this a current diagnosis for this admission?: YesPlan: The patient is oxygenating adequately. Continue Levaquin. (2) Alcohol withdrawal Qualifiers: Complication of substance-induced condition: with unspecified complication Qualified Code(s): F10.239 - Alcohol dependence with withdrawal, unspecified Is this a current diagnosis for this admission?: YesPlan: The patient is still somewhat confused but less so than yesterday.. He is getting Ativan as well as vitamin supplementation. If his mental status continues to improve hopefully we can discharge home tomorrow. (3) Hypomagnesemia Is this a current diagnosis for this admission?: YesPlan: Resolved (4) COPD (chronic obstructive pulmonary disease) Qualifiers: COPD type: unspecified COPD Qualified Code(s): J44.9 - Chronic obstructive pulmonary disease, unspecified Is this a current diagnosis for this admission?: YesPlan: No wheezing on exam today. (5) Elevated LFTs Is this a current diagnosis for this admission?: YesPlan: Most likely secondary to alcohol use. (6) History of seizure Is this a current diagnosis for this admission?: YesPlan: No seizures overnight. (7) Tobacco abuse Is this a current diagnosis for this admission?: Yes (8) Thiamine deficiency Is this a current diagnosis for this admission?: YesPlan: Patient is getting thiamine replacement. (9) HTN (hypertension) Qualifiers: Hypertension type: essential hypertension Qualified Code(s): I10 - Essential (primary) hypertension Is this a current diagnosis for this admission?: YesPlan: Blood pressure has been elevated but that may be related to his delirium tremens. - Time Time Spent with patient: 25-34 minutes - Inpatient Certification Medical Necessity: Need Close Monitoring Due to Risk of Patient Decompensation
[2016-03-03] MEDS: MORPHINE SULFATE 10 MG/ML INJ IV PRN ×2 (00:26→07:55)
[2016-03-03] MEDS: LORAZEPAM INJ 2 MG/1 ML VIAL IV PRN (05:57)
[2016-03-03] MEDS: ENOXAPARIN SODIUM INJ 40 MG/0.4 ML DISP.SYRIN SUBCUT SCH (08:27)
[2016-03-03 09:52] VITALS: BP 146/79
--- NOTE | 2016-03-03 11:38 | PDOC DISCHARGE SUMMARY ---
General - Admit/Disc Date/PCP Admission Date/Primary Care Provider: 02/27/16 22:04 Discharge Date: 03/03/16 - Discharge Diagnosis (1) Aspiration pneumonia Is this a current diagnosis for this admission?: YesSummary: Completed a 5 day course of Levaquin. (2) Alcohol withdrawal Is this a current diagnosis for this admission?: YesSummary: Improved with Ativan. He was no longer confused on the morning of discharge. (3) Hypomagnesemia Is this a current diagnosis for this admission?: Yes (4) COPD (chronic obstructive pulmonary disease) Is this a current diagnosis for this admission?: Yes (5) Elevated LFTs Is this a current diagnosis for this admission?: YesSummary: Secondary to chronic alcohol use. (6) History of seizure Is this a current diagnosis for this admission?: Yes (7) Tobacco abuse Is this a current diagnosis for this admission?: Yes (8) Thiamine deficiency Is this a current diagnosis for this admission?: Yes (9) HTN (hypertension) Is this a current diagnosis for this admission?: Yes - Additional Information Resuscitation Status: Full Code Discharge Diet: Regular Discharge Activity: Activity As Tolerated Home Medications: Lorazepam [Ativan 1 mg Tablet] 1 mg PO Q4HP PRN #30 tablet 03/03/16 Nicotine [Nicoderm 21 mg/24 Hr Transderm Patch] 1 each TD DAILYP PRN patch.td24 03/03/16 History of Present Illness History of Present Illness: SHAQ ROCHE is a 45 year old male who has a chronic alcohol drinker who presented with nausea vomiting for several days along with confusion and hallucinations consistent with delirium tremens. Patient x-ray was found to have probable aspiration pneumonia. Patient was admitted for treatment of his delirium tremens and aspiration pneumonia. Hospital Course Hospital Course: 45-year-old gentleman admitted with delirium tremens as well as aspiration pneumonia. Patient received IV antibiotics and Ativan. The patient completed a 5 day course of Levaquin and no further antibiotics are given. His delirium tremens resolved and he was alert and oriented 3 on day of discharge. He is being sent home with some Ativan and instructed not to drink anymore alcohol. Physical Exam Vital Signs: Temp Pulse Resp BP Pulse Ox 97.7 F 58 L 16 146/79 H 94 03/03/16 09:51 03/03/16 09:51 03/03/16 09:51 03/03/16 09:51 03/03/16 09:51 Intake & Output 03/02/16 03/03/16 03/04/16 06:59 06:59 06:59 Intake Total 1415 987 Balance 1415 987 Weight 71.9 kg 71.9 kg General appearance: PRESENT: no acute distress Eye exam: PRESENT: conjunctiva pink, EOMI, PERRLA. ABSENT: scleral icterus Mouth exam: PRESENT: moist, tongue midline Neck exam: ABSENT: JVD Respiratory exam: PRESENT: clear to auscultation iván. ABSENT: rales, rhonchi, wheezes Cardiovascular exam: PRESENT: RRR. ABSENT: diastolic murmur, rubs, systolic murmur GI/Abdominal exam: PRESENT: normal bowel sounds, soft. ABSENT: distended, guarding, mass, organolmegaly, rebound, tenderness Extremities exam: ABSENT: calf tenderness, clubbing, pedal edema Neurological exam: PRESENT: alert, awake, oriented to person, oriented to place , oriented to time, oriented to situation, CN II-XII grossly intact. ABSENT: motor sensory deficit Psychiatric exam: PRESENT: appropriate affect Skin exam: PRESENT: dry, intact, warm. ABSENT: cyanosis, rash Results Laboratory Results: 03/01/16 04:45 03/01/16 04:45 Impressions: Chest X-Ray 02/27/16 19:10 IMPRESSION: Retrocardiac opacity may represent a developing left lower lobe pneumonitis. Recommend clinical correlation. Abdomen/Pelvis CT 02/28/16 00:00 IMPRESSION: DIFFUSE FATTY INFILTRATION OF THE LIVER. LESION IN THE LEFT LOBE HAS CHARACTERISTICS OF A HEMANGIOMA. NO OTHER SIGNIFICANT OR ACUTE FINDING IN THE ABDOMEN OR PELVIS ON CT SCAN WITH IV CONTRAST. Head CT 02/28/16 00:00 IMPRESSION: MILD CHRONIC CHANGES OF ATROPHY AND MICROVASCULAR ISCHEMIA. NO ACUTE PROCESS. Qualifiers PATEINT BEING DISCHARGED WITH ANY OF THE FOLLOWING DIAGNOSIS?: No Plan Discharge Plan: Discharged home in stable condition. Time Spent: Greater than 30 Minutes
== END 2016-03-03 10:01 | disposition home or self-care (01) | DRG 438 ==
LOC: ER 15:07 → UNDOADMIN 20:24 → EH 20:24 → 3S 02-28 02:17
PROVIDERS: ADMIT Family Medicine; ATTEND Family Medicine
DX: K85.20 Alcohol induced acute pancreatitis without necrosis or infection (principal); J69.0 Pneumonitis due to inhalation of food and vomit; E13.10 Other specified diabetes mellitus with ketoacidosis without coma; E51.9 Thiamine deficiency, unspecified; F10.231 Alcohol dependence with withdrawal delirium; F10.229 Alcohol dependence with intoxication, unspecified; E83.42 Hypomagnesemia; J44.9 Chronic obstructive pulmonary disease, unspecified; M19.90 Unspecified osteoarthritis, unspecified site; I12.9 Hypertensive chronic kidney disease with stage 1 through stage 4 chronic kidney disease, or unspecified chronic kidney disease; N18.9 Chronic kidney disease, unspecified; F41.1 Generalized anxiety disorder; F32.9 Major depressive disorder, single episode, unspecified; K29.70 Gastritis, unspecified, without bleeding; D18.09 Hemangioma of other sites; F17.210 Nicotine dependence, cigarettes, uncomplicated; Z88.0 Allergy status to penicillin
CPT/HCPCS: 36415; 70450; 71010; 74177; 80048; 80053; 80061; 80307; 81001; 82962; 83690; 83735; 84100; 84443; 84484; 85025; 85027; 93005; 93010; 94799; 96361; 96365; 96366; 96372; 99291; J1650; J1956; J2060; J2270; J2550; J3411; J3475; J3480; J3490; J7030; J7120; S0028

== ENCOUNTER 2016-03-26 07:51 | Inpatient (IN) | payer SELFPAY ==
[2016-03-26] MEDS ORDERED: NORMAL SALINE IM ONE ×5 (09:55)
[2016-03-26] MEDS ORDERED: LORAZEPAM INJ 2 MG/1 ML VIAL IV PRN (09:55)
[2016-03-26] MEDS ORDERED: LORAZEPAM INJ 2 MG/1 ML VIAL IV ONE ×2 (09:55→12:03)
[2016-03-26] MEDS ORDERED: MAGNESIUM SULFATE IM ONE ×5 (09:55)
[2016-03-26] MEDS ORDERED: [UNRECOGNIZED DRUG - OTHER] IM ONE ×5 (09:55)
[2016-03-26] MEDS ORDERED: THIAMINE HCL IM ONE ×5 (09:55)
--- NOTE | 2016-03-26 09:59 | ER Document Report ---
ED General - General Chief Complaint: ETOH Abuse Stated Complaint: POSSIBLE ETOH Time seen by provider: 09:58 Mode of Arrival: Ambulatory Information source: Patient Notes: This is a 45-year-old man with a history of alcohol abuse, alcohol which roll seizures and alcoholic pancreatitis who presents to the emergency room with seizures at home, confusion in the setting of acute alcohol withdrawal. TRAVEL OUTSIDE OF THE [place] IN LAST 30 DAYS: No - HPI Onset: Yesterday Onset/Duration: Gradual Quality of pain: No pain Severity: None Pain Level: Denies Associated symptoms: denies: Chills, Fever Exacerbated by: Denies Relieved by: Denies Similar symptoms previously: Yes Recently seen / treated by doctor: No - Related Data Allergies/Adverse Reactions: Penicillins Allergy (Verified 03/26/16 08:06) Home Medications: Current Home Medications No Home Medications 03/26/16 [History] Past Medical History - General Information source: Patient - Social History Smoking Status: Current Every Day Smoker Cigarette use (# per day): Yes - 1 pack per day Chew tobacco use (# tins/day): No Smoking Education Provided: No Frequency of alcohol use: Heavy Drug Abuse: None Lives with: Alone Family History: Reviewed & Not Pertinent Patient has suicidal ideation: Yes Patient has homicidal ideation: Yes - Past Medical History Cardiac Medical History: Reports: Hx Hypertension Denies: Hx Congestive Heart Failure, Hx DVT, Hx Heart Attack, Hx Hypercholesterolemia, Hx Pulmonary Embolism Pulmonary Medical History: Reports: Hx COPD Neurological Medical History: Reports: Hx Seizures - Roxana secondary to alcohol withdrawal. Endocrine Medical History: Denies: Hx Diabetes Mellitus Type 1, Hx Diabetes Mellitus Type 2, Hx Hyperthyroidism, Hx Hypothyroidism Renal/ Medical History: Denies: Hx Peritoneal Dialysis GI Medical History: Denies: Hx Cirrhosis, Hx Hepatitis Musculoskeltal Medical History: Reports Hx Arthritis Skin Medical History: Denies Hx Eczema, Denies Hx Psoriasis Psychiatric Medical History: Reports: Hx Depression Infectious Medical History: Denies: Hx Hepatitis Past Surgical History: Reports: Hx Abdominal Surgery, Hx Orthopedic Surgery - left shoulder - Immunizations Hx Diphtheria, Pertussis, Tetanus Vaccination: Yes Review of Systems - Review of Systems Constitutional: denies: Chills, Fever EENT: No symptoms reported Cardiovascular: No symptoms reported Respiratory: No symptoms reported Gastrointestinal: No symptoms reported Genitourinary: No symptoms reported Male Genitourinary: No symptoms reported Musculoskeletal: No symptoms reported Skin: No symptoms reported Hematologic/Lymphatic: No symptoms reported Neurological/Psychological: See HPI Physical Exam - Vital signs Vitals: Temp Pulse Resp BP Pulse Ox 97.5 F 99 16 143/99 H 95 03/26/16 08:03 03/26/16 08:03 03/26/16 08:03 03/26/16 08:03 03/26/16 08:03 Notes: Physical exam: GENERAL: 45-year-old man, alert, confusion, diaphoretic and tremulous HEAD: Atraumatic, normocephalic. EYES: Pupils equal round and reactive to light, extraocular movements intact, sclera anicteric, conjunctiva are normal. ENT: TMs normal, nares patent, oropharynx clear without exudates. Moist mucous membranes. NECK: Normal range of motion, supple without lymphadenopathy or JVD. LUNGS: Breath sounds clear to auscultation bilaterally and equal. No wheezes rales or rhonchi. HEART: Tachycardic and rhythm without murmurs, rubs or gallops. ABDOMEN: Soft, normoactive bowel sounds. No tenderness to palpation. No guarding, no rebound. No masses appreciated. EXTREMITIES: Normal range of motion, no pitting or edema. No clubbing or cyanosis. NEUROLOGICAL: Cranial nerves II through XII grossly intact. Confusion, alert, tremulous, gait not assessed. He is moving all extremities. PSYCH: Normal mood, normal affect. SKIN: Warm, diaphoretic, normal turgor, no rashes or lesions noted. Course - Re-evaluation Re-evalutation: 03/26/16 11:18 Note: This is a 45-year-old man with a complicated drinking history and has a history of withdrawal seizures and presents with acute withdrawal, reports seizures at home. The patient is confused, tremulous and tachycardic on exam. The last hospitalization was complicated by aspiration pneumonia. The plan will be to admit for IV fluids, electrolyte repletion, IV Ativan. - Vital Signs Vital signs: Temp Pulse Resp BP Pulse Ox 98.6 F 91 24 H 133/79 H 95 03/26/16 19:45 03/26/16 19:45 03/26/16 19:45 03/26/16 19:45 03/26/16 19:45 - Laboratory Result Diagrams: 03/26/16 09:01 03/26/16 09:01 Laboratory results interpreted by me: 03/26/16 03/26/16 09:01 09:01 Hgb 17.1 H RDW 15.6 H Carbon Dioxide 21 L - Diagnostic Test Radiology reviewed: Image reviewed, Reports reviewed - Chest x-ray shows no infiltrates or effusions - EKG Interpretation by Me Rate: Tachycardia Rhythm: NSR - EKG shows sinus tachycardia with a ventricular rate of 101, no acute ST-T wave changes Critical Care Note - Critical Care Note Total time excluding time spent on procedures (mins): 60 Discharge - Discharge Clinical Impression: acute alcohol withdrawal Condition: Serious Disposition: ADMITTED INPATIENT Admitting Provider: Hospitalist - Dr. Casas Unit Admitted: [facility]
[2016-03-26 10:03] LABS: ABSOLUTE LYMPHOCYTES (AUTO) 2.2 10^3/uL (0.5-4.7); ABSOLUTE MONOCYTES (AUTO) 0.6 10^3/uL (0.1-1.4); ABSOLUTE NEUT (AUTO) 3.1 10^3/uL (1.7-8.2); BASOPHILS % (AUTO) 0.7 % (0-2); EOSINOPHILS % (AUTO) 0.1 % (0-6); HEMATOCRIT 49.3 % (37.9-51.0); HEMOGLOBIN 17.1 g/dL (13.5-17.0); LYMPHOCYTES % (AUTO) 37.6 % (13-45); MEAN CORPUSCULAR HEMOGLOBIN 32.3 pg (27.0-33.4); MEAN CORPUSCULAR HGB CONC 34.7 g/dL (32.0-36.0); MEAN CORPUSCULAR VOLUME 93 fl (80-97); MONOCYTES % (AUTO) 9.4 % (3-13); RED CELL DISTRIBUTION WIDTH 15.6 % (11.5-14.0); SEGMENTED NEUTROPHILS % (AUTO) 52.2 % (42-78); WHITE BLOOD COUNT 5.9 10^3/uL (4.0-10.5)
[2016-03-26 10:04] LABS: PROTHROMBIN TIME 13.5 SEC (11.4-15.4)
[2016-03-26 10:11] LABS: ALANINE AMINOTRANSFERASE 50 U/L (21-72); ALBUMIN 4.2 g/dL (3.5-5.0); ALKALINE PHOSPHATASE 93 U/L (38-126); ANION GAP 16 (5-19); ASPARTATE AMINO TRANSFERASE 51 U/L (17-59); BILIRUBIN,TOTAL 0.6 mg/dL (0.2-1.3); BLOOD UREA NITROGEN 14 mg/dL (7-20); CALCIUM 8.9 mg/dL (8.4-10.2); CARBON DIOXIDE 21 mmol/L (22-30); CHLORIDE 102 mmol/L (98-107); CREATINE KINASE 119 U/L (55-170); CREATININE RESULT 0.71 mg/dL (0.52-1.25); GLUCOSE 102 mg/dL (75-110); MAGNESIUM 1.9 mg/dL (1.6-2.3); POTASSIUM 4.6 mmol/L (3.6-5.0); SODIUM 138.7 mmol/L (137-145)
[2016-03-26 10:23] LABS: CREATINE KINASE MB < 0.22 ng/mL (<4.55); TROPONIN I < 0.012 ng/mL
--- NOTE | 2016-03-26 11:07 | EKG REPORT ---
SEVERITY:- ABNORMAL ECG - SINUS TACHYCARDIA PROBABLE INFERIOR INFARCT, OLD : Confirmed by: Jose Aguirre MD 26-Mar-2016 11:06:50
[2016-03-26] MEDS ORDERED: ONDANSETRON HCL INJ/PF 4 MG/2 ML SDV IV PRN (12:04)
[2016-03-26] MEDS ORDERED: ALBUTEROL SULFATE 0.083% NEB 2.5 MG/3 ML AMPUL NEB PRN (12:21)
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
[2016-03-26] MEDS: HEPARIN SOD (PORCINE) 5,000 UNIT/ML 1 ML SYRINGE SUBCUT SCH ×2 (16:14→21:29)
[2016-03-26] MEDS: LORAZEPAM INJ 2 MG/1 ML VIAL IV SCH ×2 (17:13→23:04)
[2016-03-26] MEDS: DEXTROSE 5%-1/2 NORMAL SALINE 1,000 ML IV PRN (18:38)
[2016-03-26] MEDS: FAMOTIDINE INJ/PF 20 MG/2 ML SDV IV SCH (21:29)
[2016-03-27] MEDS: ACETAMINOPHEN 325 MG TABLET PO PRN ×3 (01:03→19:43)
[2016-03-27] MEDS: DEXTROSE 5%-1/2 NORMAL SALINE 1,000 ML IV PRN ×3 (01:57→21:22)
[2016-03-27 05:01] LABS: ABSOLUTE LYMPHOCYTES (AUTO) 1.9 10^3/uL (0.5-4.7); ABSOLUTE MONOCYTES (AUTO) 0.9 10^3/uL (0.1-1.4); BASOPHILS % (AUTO) 0.2 % (0-2); EOSINOPHILS % (AUTO) 0.2 % (0-6); HEMATOCRIT 44.1 % (37.9-51.0); HEMOGLOBIN 15.1 g/dL (13.5-17.0); HGB HCT DIFFERENCE 1.2; LYMPHOCYTES % (AUTO) 15.8 % (13-45); MEAN CORPUSCULAR HEMOGLOBIN 32.1 pg (27.0-33.4); MEAN CORPUSCULAR HGB CONC 34.3 g/dL (32.0-36.0); MEAN CORPUSCULAR VOLUME 94 fl (80-97); MONOCYTES % (AUTO) 7.8 % (3-13); RED BLOOD COUNT 4.71 10^6/uL (4.35-5.55); RED CELL DISTRIBUTION WIDTH 15.3 % (11.5-14.0)
[2016-03-27] MEDS: LORAZEPAM INJ 2 MG/1 ML VIAL IV SCH ×3 (05:07→17:20)
[2016-03-27] MEDS: HEPARIN SOD (PORCINE) 5,000 UNIT/ML 1 ML SYRINGE SUBCUT SCH ×3 (05:07→21:22)
[2016-03-27 05:21] LABS: WHITE BLOOD COUNT 11.9 10^3/uL (4.0-10.5)
[2016-03-27 07:00] LABS: ANION GAP 9 (5-19); BLOOD UREA NITROGEN 10 mg/dL (7-20); CALCIUM 8.4 mg/dL (8.4-10.2); CARBON DIOXIDE 23 mmol/L (22-30); CHLORIDE 104 mmol/L (98-107); GLUCOSE 103 mg/dL (75-110); MAGNESIUM 2.1 mg/dL (1.6-2.3); POTASSIUM 4.2 mmol/L (3.6-5.0); SODIUM 135.6 mmol/L (137-145)
[2016-03-27] MEDS: LORAZEPAM INJ 2 MG/1 ML VIAL IV PRN ×4 (09:49→21:30)
[2016-03-27] MEDS: FAMOTIDINE INJ/PF 20 MG/2 ML SDV IV SCH ×2 (09:49→21:21)
--- NOTE | 2016-03-27 13:34 | PDOC PROGRESS REPORT ---
Subjective Progress Note for:: 03/27/16 Subjective:: Patient states that he is still feeling anxious and having occasional visual hallucination. Patient denies fever, chills, headache, new focal weakness, chest pain, shortness of breath, abdominal pain, nausea, vomiting, diarrhea, constipation. Physical Exam Vital Signs: Temp Pulse Resp BP Pulse Ox 98.0 F 76 16 141/86 H 98 03/27/16 11:34 03/27/16 11:34 03/27/16 11:34 03/27/16 11:34 03/27/16 11:34 Intake & Output 03/26/16 03/27/16 03/28/16 06:59 06:59 06:59 Intake Total 1826 Output Total 400 Balance 1826 -400 Weight 70 kg GENERAL: No acute distress HEENT: Conjunctiva clear, nonicteric, moist mucous membranes, no JVD, midline trachea RESPIRATORY: Clear to auscultation bilaterally, no wheezes, no rhonchi CARDIAC: Regular rate and rhythm, no murmurs/gallops/rubs ABDOMEN: Soft, nondistended, nontender, positive bowel sounds, no rebound, no guarding EXTREMETIES: No edema, cyanosis, clubbing NEUROLOGIC: Alert, oriented to person/place/time, CN's grossly intact, no focal deficits SKIN: No rash, wounds PSYCH: Anxious Results Laboratory Results: 03/27/16 03:57 03/27/16 06:32 03/27/16 03/27/16 03/27/16 03:57 03:57 06:32 WBC 11.9 H D RBC 4.71 Hgb 15.1 Hct 44.1 MCV 94 MCH 32.1 MCHC 34.3 RDW 15.3 H Plt Count 229 Seg Neutrophils % 76.0 Lymphocytes % 15.8 Monocytes % 7.8 Eosinophils % 0.2 Basophils % 0.2 Absolute Neutrophils 9.0 H Absolute Lymphocytes 1.9 Absolute Monocytes 0.9 Absolute Eosinophils 0.0 Absolute Basophils 0.0 Sodium Cancelled 135.6 L Potassium Cancelled 4.2 Chloride Cancelled 104 Carbon Dioxide Cancelled 23 Anion Gap Cancelled 9 BUN Cancelled 10 Creatinine Cancelled 0.60 Est GFR ( Amer) Cancelled > 60 Est GFR (Non-Af Amer) Cancelled > 60 Glucose Cancelled 103 Calcium Cancelled 8.4 Magnesium Cancelled 2.1 03/26/16 17:50 Troponin I < 0.012 Impressions: Chest X-Ray 03/26/16 09:50 IMPRESSION: NO ACUTE RADIOGRAPHIC FINDING IN THE CHEST. Assessment & Plan - Diagnosis (1) Alcohol withdrawal Qualifiers: Complication of substance-induced condition: with unspecified complication Qualified Code(s): F10.239 - Alcohol dependence with withdrawal, unspecified Is this a current diagnosis for this admission?: YesPlan: Scheduled and when necessary IV Ativan. IV thiamine. Social work/case management to evaluate for alcohol rehabilitation program. (2) COPD (chronic obstructive pulmonary disease) Qualifiers: COPD type: unspecified COPD Qualified Code(s): J44.9 - Chronic obstructive pulmonary disease, unspecified Is this a current diagnosis for this admission?: YesPlan: Stable/asymptomatic at this time. Albuterol nebulizer treatments when necessary. (3) History of seizure Is this a current diagnosis for this admission?: YesPlan: Seizure precautions. Address alcohol withdrawal as above. (4) HTN (hypertension) Qualifiers: Hypertension type: essential hypertension Qualified Code(s): I10 - Essential (primary) hypertension Is this a current diagnosis for this admission?: YesPlan: When necessary IV Lopressor. (5) Tobacco abuse Is this a current diagnosis for this admission?: Yes (6) DVT prophylaxis Is this a current diagnosis for this admission?: YesPlan: Heparin. (7) GI prophylaxis Is this a current diagnosis for this admission?: YesPlan: Pepcid. (8) Full code status Is this a current diagnosis for this admission?: Yes - Time Time Spent with patient: 35 or more minutes Anticipated discharge: Other - Substance abuse rehabilitation Within: within 72 hours
[2016-03-27] MEDS: THIAMINE HCL 100 MG in NORMAL SALINE 50 ML IV SCH (17:22)
[2016-03-28] MEDS: LORAZEPAM INJ 2 MG/1 ML VIAL IV SCH (00:14)
[2016-03-28] MEDS ORDERED: LORAZEPAM INJ 2 MG/1 ML VIAL IV PRN ×5 (00:50→03:42)
[2016-03-28] MEDS ORDERED: LORAZEPAM INJ 2 MG/1 ML VIAL ONE ×2 (03:50→05:38)
[2016-03-28] MEDS: LORAZEPAM INJ 2 MG/1 ML VIAL IV PRN ×2 (03:55→05:00)
[2016-03-28] MEDS: DEXTROSE 5%-1/2 NORMAL SALINE 1,000 ML IV PRN ×2 (05:52→19:48)
[2016-03-28] MEDS: HEPARIN SOD (PORCINE) 5,000 UNIT/ML 1 ML SYRINGE SUBCUT SCH ×3 (05:58→22:05)
[2016-03-28] MEDS ORDERED: PROPOFOL 100 ML IV ONE (06:40)
[2016-03-28 07:02] LABS: ABSOLUTE EOSINOPHILS # (AUTO) 0.1 10^3/uL (0.0-0.6); ABSOLUTE LYMPHOCYTES (AUTO) 1.9 10^3/uL (0.5-4.7); ABSOLUTE MONOCYTES (AUTO) 0.6 10^3/uL (0.1-1.4); ABSOLUTE NEUT (AUTO) 3.8 10^3/uL (1.7-8.2); BASOPHILS % (AUTO) 0.5 % (0-2); EOSINOPHILS % (AUTO) 1.2 % (0-6); HEMATOCRIT 43.4 % (37.9-51.0); HEMOGLOBIN 15.1 g/dL (13.5-17.0); HGB HCT DIFFERENCE 1.9; LYMPHOCYTES % (AUTO) 29.8 % (13-45); MEAN CORPUSCULAR HEMOGLOBIN 32.6 pg (27.0-33.4); MEAN CORPUSCULAR HGB CONC 34.8 g/dL (32.0-36.0); MEAN CORPUSCULAR VOLUME 94 fl (80-97); MONOCYTES % (AUTO) 9.9 % (3-13); RED BLOOD COUNT 4.63 10^6/uL (4.35-5.55); SEGMENTED NEUTROPHILS % (AUTO) 58.6 % (42-78); WHITE BLOOD COUNT 6.4 10^3/uL (4.0-10.5)
[2016-03-28 08:13] LABS: ANION GAP 9 (5-19); BLOOD UREA NITROGEN 9 mg/dL (7-20); CALCIUM 8.6 mg/dL (8.4-10.2); CARBON DIOXIDE 23 mmol/L (22-30); CHLORIDE 104 mmol/L (98-107); CREATININE RESULT 0.56 mg/dL (0.52-1.25); GLUCOSE 132 mg/dL (75-110); MAGNESIUM 1.7 mg/dL (1.6-2.3); POTASSIUM 4.1 mmol/L (3.6-5.0); SODIUM 135.7 mmol/L (137-145)
[2016-03-28 08:28] LABS: ARTERIAL BLOOD BASE EXCESS -2.9 mmol/L; ARTERIAL BLOOD O2 SATURATION 84.8 % (94-98)
--- NOTE | 2016-03-28 09:02 | Progress Note ---
Provider Note Provider Note: 03/28/2016: I was contacted by patient's floor nurse in product marketing manager hours. Patient was becoming more confused, threatening to leave hospital, acting aggressively towards staff, and wandering. I went to the patient's bedside shortly thereafter. Multiple nursing staff present, along with security personnel. Patient was globally disoriented. Somewhat disheveled. Mildly anxious, but no lily agitation. Wanting to leave the hospital. A bit unsteady on his feet. Overall appearance of alcohol withdrawal. Certainly patient is in no condition to leave AGAINST MEDICAL ADVICE. After security personnel discussed with patient , he quietly sat on his bed. IVC papers drawn up. Patient was eventually transferred to the intensive care unit and initially placed on Ativan drip. Later this morning, I was contacted by patient's intensive care unit nurse. Even with his Ativan drip at maximum designated rate, patient was quite agitated and confused. Concern that he would hurt himself and/or staff in his confusion and agitation. Decision made to proceed with endotracheal intubation. Orders given to nursing staff. Discussed with daytime hospitalist team.
[2016-03-28 10:06] LABS: ARTERIAL BLOOD BASE EXCESS -2.1 mmol/L; ARTERIAL BLOOD O2 SATURATION 99.2 % (94-98)
[2016-03-28] MEDS: LORAZEPAM 24 MG/240 ML BAG IV PRN ×4 (10:07→19:49)
[2016-03-28] MEDS: FAMOTIDINE INJ/PF 20 MG/2 ML SDV IV SCH ×2 (10:30→22:05)
--- NOTE | 2016-03-28 10:46 | PDOC PROGRESS REPORT ---
Subjective Progress Note for:: 03/28/16 Subjective:: Patient is intubated and sedated. Physical Exam Vital Signs: Temp Pulse Resp BP Pulse Ox 98.4 F 82 16 132/98 H 97 03/28/16 08:00 03/28/16 10:00 03/28/16 10:00 03/28/16 10:00 03/28/16 10:00 Intake & Output 03/27/16 03/28/16 03/29/16 06:59 06:59 06:59 Intake Total 1826 3162 Output Total 850 800 Balance 1826 2312 -800 Weight 70 kg 70 kg General appearance: PRESENT: no acute distress Head exam: PRESENT: atraumatic, normocephalic Eye exam: PRESENT: conjunctiva pink. ABSENT: scleral icterus Ear exam: PRESENT: normal external ear exam Mouth exam: PRESENT: moist, tongue midline, other - ET tube in place. Neck exam: ABSENT: JVD Respiratory exam: PRESENT: clear to auscultation iván. ABSENT: rales, rhonchi, wheezes Cardiovascular exam: PRESENT: RRR. ABSENT: diastolic murmur, rubs, systolic murmur GI/Abdominal exam: PRESENT: normal bowel sounds, soft. ABSENT: distended, guarding, mass, organolmegaly, rebound, tenderness Extremities exam: PRESENT: full ROM. ABSENT: calf tenderness, clubbing, pedal edema Neurological exam: PRESENT: other - Intubated and sedated Psychiatric exam: PRESENT: other - Unable to assess. Skin exam: PRESENT: dry, intact, warm. ABSENT: cyanosis, rash Results Laboratory Results: 03/28/16 06:55 03/28/16 07:49 03/28/16 03/28/16 03/28/16 06:55 06:55 07:49 WBC 6.4 RBC 4.63 Hgb 15.1 Hct 43.4 MCV 94 MCH 32.6 MCHC 34.8 RDW 15.0 H Plt Count 223 Seg Neutrophils % 58.6 Lymphocytes % 29.8 Monocytes % 9.9 Eosinophils % 1.2 Basophils % 0.5 Absolute Neutrophils 3.8 Absolute Lymphocytes 1.9 Absolute Monocytes 0.6 Absolute Eosinophils 0.1 Absolute Basophils 0.0 Carbonic Acid HCO3/H2CO3 Ratio ABG pH ABG pCO2 ABG pO2 ABG HCO3 ABG O2 Saturation ABG Base Excess FiO2 Sodium Cancelled 135.7 L Potassium Cancelled 4.1 Chloride Cancelled 104 Carbon Dioxide Cancelled 23 Anion Gap Cancelled 9 BUN Cancelled 9 Creatinine Cancelled 0.56 Est GFR ( Amer) Cancelled > 60 Est GFR (Non-Af Amer) Cancelled > 60 Glucose Cancelled 132 H Calcium Cancelled 8.6 Magnesium Cancelled 1.7 03/28/16 03/28/16 08:07 09:55 WBC RBC Hgb Hct MCV MCH MCHC RDW Plt Count Seg Neutrophils % Lymphocytes % Monocytes % Eosinophils % Basophils % Absolute Neutrophils Absolute Lymphocytes Absolute Monocytes Absolute Eosinophils Absolute Basophils Carbonic Acid 1.51 H 1.24 HCO3/H2CO3 Ratio 15:1 18:1 ABG pH 7.30 L 7.37 ABG pCO2 50.1 H 41.3 ABG pO2 54.5 L 182.5 H ABG HCO3 24.1 23.1 ABG O2 Saturation 84.8 L 99.2 H ABG Base Excess -2.9 -2.1 FiO2 50% 50% Sodium Potassium Chloride Carbon Dioxide Anion Gap BUN Creatinine Est GFR ( Amer) Est GFR (Non-Af Amer) Glucose Calcium Magnesium 03/26/16 17:50 Troponin I < 0.012 Impressions: Chest X-Ray 03/28/16 00:00 IMPRESSION: Endotracheal tube 3.5 cm above the salvador. Nasogastric tube tip and side port below the hemidiaphragms. No focal infiltrates. No pleural effusion. No pneumothorax. Assessment & Plan - Diagnosis (1) Alcohol withdrawal Qualifiers: Complication of substance-induced condition: with unspecified complication Qualified Code(s): F10.239 - Alcohol dependence with withdrawal, unspecified Is this a current diagnosis for this admission?: YesPlan: The patient has required high-dose Ativan and is now intubated and sedated. (2) COPD (chronic obstructive pulmonary disease) Qualifiers: COPD type: unspecified COPD Qualified Code(s): J44.9 - Chronic obstructive pulmonary disease, unspecified Is this a current diagnosis for this admission?: YesPlan: The patient has no wheezing on exam currently. (3) Elevated LFTs Is this a current diagnosis for this admission?: YesPlan: Most likely secondary to his alcohol abuse. We'll continue to monitor. (4) HTN (hypertension) Qualifiers: Hypertension type: essential hypertension Qualified Code(s): I10 - Essential (primary) hypertension Is this a current diagnosis for this admission?: YesPlan: Blood pressure has improved the Ativan drip. Elevated blood pressures most likely related to alcohol withdrawal. - Time Critical Time spent with patient: 15-24 minutes - Inpatient Certification Medical Necessity: Need Close Monitoring Due to Risk of Patient Decompensation
[2016-03-28] MEDS ORDERED: SUCCINYLCHOLINE CHLORIDE INJ 200 MG/10 ML VIAL ONE (11:04)
[2016-03-28] MEDS: PROPOFOL 100 ML IV PRN ×6 (12:00→22:06)
[2016-03-28] MEDS: THIAMINE HCL 100 MG in NORMAL SALINE 50 ML IV SCH (17:48)
[2016-03-28] MEDS: ACETAMINOPHEN 325 MG TABLET PO PRN (20:16)
[2016-03-29] MEDS: PROPOFOL 100 ML IV PRN ×8 (01:47→20:40)
[2016-03-29] MEDS: LORAZEPAM 24 MG/240 ML BAG IV PRN ×9 (01:48→22:04)
[2016-03-29 04:07] LABS: HEMATOCRIT 40.1 % (37.9-51.0); HEMOGLOBIN 13.6 g/dL (13.5-17.0); HGB HCT DIFFERENCE 0.7; MEAN CORPUSCULAR HEMOGLOBIN 32.1 pg (27.0-33.4); MEAN CORPUSCULAR VOLUME 95 fl (80-97); RED BLOOD COUNT 4.23 10^6/uL (4.35-5.55); RED CELL DISTRIBUTION WIDTH 15.5 % (11.5-14.0)
[2016-03-29 04:16] LABS: ANION GAP 8 (5-19); BLOOD UREA NITROGEN 4 mg/dL (7-20); CALCIUM 8.2 mg/dL (8.4-10.2); CARBON DIOXIDE 22 mmol/L (22-30); CHLORIDE 104 mmol/L (98-107); CREATININE RESULT 0.49 mg/dL (0.52-1.25); GLUCOSE 138 mg/dL (75-110); MAGNESIUM 1.7 mg/dL (1.6-2.3); POTASSIUM 3.4 mmol/L (3.6-5.0); SODIUM 134.4 mmol/L (137-145); TRIGLYCERIDES 172 mg/dL (<150)
[2016-03-29 04:32] LABS: BASOPHILS % (MANUAL) 0 % (0-2); EOSINOPHILS % (MANUAL) 0 % (0-6); LYMPHOCYTES % (MANUAL) 6 % (13-45); TOTAL CELLS COUNTED 100
[2016-03-29 04:33] LABS: ANISOCYTOSIS SLIGHT; TOXIC GRANULATION SLIGHT; TOXIC VACUOLATION PRESENT
[2016-03-29 04:35] LABS: WHITE BLOOD COUNT 24.5 10^3/uL (4.0-10.5)
[2016-03-29] MEDS: HEPARIN SOD (PORCINE) 5,000 UNIT/ML 1 ML SYRINGE SUBCUT SCH ×3 (05:08→22:19)
[2016-03-29] MEDS: POTASSI CL 20 MEQ/50 ML RIDER 20 MEQ/50 ML RTUPB IV SCH ×2 (10:11→11:56)
[2016-03-29] MEDS: DEXTROSE 5%-NORMAL SALINE 1,000 ML IV PRN ×2 (10:12→16:46)
[2016-03-29] MEDS: FAMOTIDINE INJ/PF 20 MG/2 ML SDV IV SCH ×2 (10:12→22:18)
--- NOTE | 2016-03-29 13:59 | PDOC PROGRESS REPORT ---
Subjective Progress Note for:: 03/29/16 Subjective:: Patient is intubated and sedated. Had some fever overnight. Physical Exam Vital Signs: Temp Pulse Resp BP Pulse Ox 99.1 F 74 22 H 123/80 97 03/29/16 13:42 03/29/16 13:42 03/29/16 13:42 03/29/16 13:42 03/29/16 13:42 Intake & Output 03/28/16 03/29/16 03/30/16 06:59 06:59 06:59 Intake Total 3162 4227 Output Total 850 3100 1475 Balance 2312 1127 -1475 Weight 70 kg 77.5 kg General appearance: PRESENT: no acute distress Eye exam: PRESENT: conjunctiva pink. ABSENT: scleral icterus Ear exam: PRESENT: normal external ear exam Mouth exam: PRESENT: moist, tongue midline, other - ET tube in place Neck exam: ABSENT: JVD Respiratory exam: PRESENT: clear to auscultation iván. ABSENT: rales, rhonchi, wheezes Cardiovascular exam: PRESENT: RRR. ABSENT: diastolic murmur, rubs, systolic murmur GI/Abdominal exam: PRESENT: normal bowel sounds, soft. ABSENT: distended, guarding, mass, organolmegaly, rebound, tenderness Extremities exam: ABSENT: calf tenderness, clubbing, pedal edema Neurological exam: PRESENT: alert, awake, oriented to person, oriented to place , oriented to time, oriented to situation Skin exam: PRESENT: dry, intact, warm. ABSENT: cyanosis, rash Results Laboratory Results: 03/29/16 03:46 03/29/16 03:46 03/29/16 03/29/16 03/29/16 03:46 03:46 09:27 WBC 24.5 H D RBC 4.23 L Hgb 13.6 Hct 40.1 MCV 95 MCH 32.1 MCHC 34.0 RDW 15.5 H Plt Count 172 Seg Neutrophils % Not Reportable Lymphocytes % Not Reportable Monocytes % Not Reportable Eosinophils % Not Reportable Basophils % Not Reportable Absolute Neutrophils Not Reportable Absolute Lymphocytes Not Reportable Absolute Monocytes Not Reportable Absolute Eosinophils Not Reportable Absolute Basophils Not Reportable Carbonic Acid 1.14 HCO3/H2CO3 Ratio 20:1 ABG pH 7.41 ABG pCO2 37.9 ABG pO2 68.7 L ABG HCO3 23.3 ABG O2 Saturation 94.0 ABG Base Excess -1.0 FiO2 28% Sodium 134.4 L Potassium 3.4 L Chloride 104 Carbon Dioxide 22 Anion Gap 8 BUN 4 L Creatinine 0.49 L Est GFR ( Amer) > 60 Est GFR (Non-Af Amer) > 60 Glucose 138 H Calcium 8.2 L Magnesium 1.7 Triglycerides 172 H 03/26/16 17:50 Troponin I < 0.012 Impressions: Chest X-Ray 03/29/16 00:00 IMPRESSION: No acute changes. Other findings as noted above Assessment & Plan - Diagnosis (1) Alcohol withdrawal Qualifiers: Complication of substance-induced condition: with unspecified complication Qualified Code(s): F10.239 - Alcohol dependence with withdrawal, unspecified Is this a current diagnosis for this admission?: YesPlan: The patient has required high-dose Ativan and is now intubated and sedated. (2) COPD (chronic obstructive pulmonary disease) Qualifiers: COPD type: unspecified COPD Qualified Code(s): J44.9 - Chronic obstructive pulmonary disease, unspecified Is this a current diagnosis for this admission?: YesPlan: The patient has no wheezing on exam currently. (3) Elevated LFTs Is this a current diagnosis for this admission?: YesPlan: Most likely secondary to his alcohol abuse. We'll continue to monitor. (4) HTN (hypertension) Qualifiers: Hypertension type: essential hypertension Qualified Code(s): I10 - Essential (primary) hypertension Is this a current diagnosis for this admission?: YesPlan: Blood pressure has improved the Ativan drip. Elevated blood pressures most likely related to alcohol withdrawal. (5) Fever Is this a current diagnosis for this admission?: YesPlan: Patient has no obvious source for infection. We will check sputum and blood cultures. - Time Critical Time spent with patient: 15-24 minutes - Inpatient Certification Medical Necessity: Need Close Monitoring Due to Risk of Patient Decompensation - Plan Summary Plan Summary: No obvious source of infection. We'll hold off on starting antibiotics unless a source becomes obvious.
[2016-03-29] MEDS: THIAMINE HCL 100 MG in NORMAL SALINE 50 ML IV SCH (18:14)
[2016-03-30] MEDS: LORAZEPAM 24 MG/240 ML BAG IV PRN ×10 (00:18→22:10)
[2016-03-30] MEDS: PROPOFOL 100 ML IV PRN ×9 (02:02→22:11)
[2016-03-30] MEDS: DEXTROSE 5%-NORMAL SALINE 1,000 ML IV PRN ×4 (02:03→23:30)
[2016-03-30 04:14] LABS: ABSOLUTE EOSINOPHILS # (AUTO) 0.1 10^3/uL (0.0-0.6); ABSOLUTE LYMPHOCYTES (AUTO) 1.2 10^3/uL (0.5-4.7); ABSOLUTE MONOCYTES (AUTO) 0.7 10^3/uL (0.1-1.4); ABSOLUTE NEUT (AUTO) 13.9 10^3/uL (1.7-8.2); BASOPHILS % (AUTO) 0.2 % (0-2); EOSINOPHILS % (AUTO) 0.4 % (0-6); HEMATOCRIT 36.4 % (37.9-51.0); HEMOGLOBIN 12.2 g/dL (13.5-17.0); HGB HCT DIFFERENCE 0.2; LYMPHOCYTES % (AUTO) 7.6 % (13-45); MEAN CORPUSCULAR HEMOGLOBIN 32.1 pg (27.0-33.4); MEAN CORPUSCULAR HGB CONC 33.6 g/dL (32.0-36.0); MEAN CORPUSCULAR VOLUME 96 fl (80-97); MONOCYTES % (AUTO) 4.2 % (3-13); RED BLOOD COUNT 3.81 10^6/uL (4.35-5.55); SEGMENTED NEUTROPHILS % (AUTO) 87.6 % (42-78); WHITE BLOOD COUNT 15.9 10^3/uL (4.0-10.5)
[2016-03-30 04:35] LABS: ANION GAP 10 (5-19); BLOOD UREA NITROGEN 3 mg/dL (7-20); CALCIUM 8.2 mg/dL (8.4-10.2); CARBON DIOXIDE 21 mmol/L (22-30); CHLORIDE 108 mmol/L (98-107); CREATININE RESULT 0.53 mg/dL (0.52-1.25); GLUCOSE 143 mg/dL (75-110); POTASSIUM 3.6 mmol/L (3.6-5.0); SODIUM 138.6 mmol/L (137-145)
[2016-03-30] MEDS: HEPARIN SOD (PORCINE) 5,000 UNIT/ML 1 ML SYRINGE SUBCUT SCH ×3 (05:03→22:05)
[2016-03-30 06:14] LABS: ARTERIAL BLOOD BASE EXCESS -3.6 mmol/L; ARTERIAL BLOOD O2 SATURATION 96.4 % (94-98)
[2016-03-30] MEDS: FAMOTIDINE INJ/PF 20 MG/2 ML SDV IV SCH ×2 (09:50→22:05)
--- NOTE | 2016-03-30 10:12 | PDOC PROGRESS REPORT ---
Subjective Progress Note for:: 03/30/16 Subjective:: Patient is intubated and sedated. His sedation was reduced last night and he became very agitated. Physical Exam Vital Signs: Temp Pulse Resp BP Pulse Ox 99.7 F 65 17 120/80 98 03/30/16 08:00 03/30/16 08:00 03/30/16 08:00 03/30/16 08:00 03/30/16 09:23 Intake & Output 03/29/16 03/30/16 03/31/16 06:59 06:59 06:59 Intake Total 4227 6087 Output Total 3100 3875 300 Balance 1127 2212 -300 Weight 77.5 kg 77.5 kg Head exam: PRESENT: atraumatic, normocephalic Eye exam: PRESENT: conjunctiva pink. ABSENT: scleral icterus Ear exam: PRESENT: normal external ear exam Mouth exam: PRESENT: moist, tongue midline, other - ET tube in place. Neck exam: ABSENT: JVD Respiratory exam: PRESENT: clear to auscultation iván. ABSENT: rales, rhonchi, wheezes Cardiovascular exam: PRESENT: RRR. ABSENT: diastolic murmur, rubs, systolic murmur Vascular exam: PRESENT: normal capillary refill GI/Abdominal exam: PRESENT: normal bowel sounds, soft. ABSENT: distended, guarding, mass, organolmegaly, rebound, tenderness Extremities exam: ABSENT: calf tenderness, clubbing, pedal edema Neurological exam: PRESENT: other - Intubated and sedated. Psychiatric exam: PRESENT: other - Unable to assess. Skin exam: PRESENT: dry, intact, warm. ABSENT: cyanosis, rash Results Laboratory Results: 03/30/16 03:59 03/30/16 03:59 03/30/16 03/30/16 03/30/16 03:59 03:59 06:05 WBC 15.9 H RBC 3.81 L Hgb 12.2 L Hct 36.4 L MCV 96 MCH 32.1 MCHC 33.6 RDW 15.0 H Plt Count 142 L Seg Neutrophils % 87.6 H Lymphocytes % 7.6 L Monocytes % 4.2 Eosinophils % 0.4 Basophils % 0.2 Absolute Neutrophils 13.9 H Absolute Lymphocytes 1.2 Absolute Monocytes 0.7 Absolute Eosinophils 0.1 Absolute Basophils 0.0 Carbonic Acid 1.11 HCO3/H2CO3 Ratio 19:1 ABG pH 7.38 ABG pCO2 36.9 ABG pO2 86.0 ABG HCO3 21.1 ABG O2 Saturation 96.4 ABG Base Excess -3.6 FiO2 35% Sodium 138.6 Potassium 3.6 Chloride 108 H Carbon Dioxide 21 L Anion Gap 10 BUN 3 L Creatinine 0.53 Est GFR ( Amer) > 60 Est GFR (Non-Af Amer) > 60 Glucose 143 H Calcium 8.2 L 03/26/16 17:50 Troponin I < 0.012 Impressions: Chest X-Ray 03/29/16 00:00 IMPRESSION: No acute changes. Other findings as noted above Assessment & Plan - Diagnosis (1) Alcohol withdrawal Qualifiers: Complication of substance-induced condition: with unspecified complication Qualified Code(s): F10.239 - Alcohol dependence with withdrawal, unspecified Is this a current diagnosis for this admission?: YesPlan: The patient has required high-dose Ativan and propofol. His sedation was weaned down last night but had to be increased back up because of agitation. We 'll continue with intubation and will try to wake up again today to see how he does. . (2) COPD (chronic obstructive pulmonary disease) Qualifiers: COPD type: unspecified COPD Qualified Code(s): J44.9 - Chronic obstructive pulmonary disease, unspecified Is this a current diagnosis for this admission?: YesPlan: The patient has no wheezing on exam currently. (3) Elevated LFTs Is this a current diagnosis for this admission?: YesPlan: Most likely secondary to his alcohol abuse. We'll continue to monitor. (4) HTN (hypertension) Qualifiers: Hypertension type: essential hypertension Qualified Code(s): I10 - Essential (primary) hypertension Is this a current diagnosis for this admission?: YesPlan: Blood pressure has improved the Ativan drip. Elevated blood pressures most likely related to alcohol withdrawal. (5) Fever Is this a current diagnosis for this admission?: YesPlan: Patient has no obvious source for infection. We will check sputum and blood cultures. Cultures are all negative to date. Antibiotics have not been started yet. The patient's white count has decreased. - Time Time Spent with patient: 25-34 minutes - Inpatient Certification Medical Necessity: Need Close Monitoring Due to Risk of Patient Decompensation - Plan Summary Plan Summary: We'll continue to try to wean down his sedation.
[2016-03-30] MEDS ORDERED: CEFEPIME 1 GM/D5W RTU 1 GM/50 ML RTUPB IV ONE (15:30)
[2016-03-30] MEDS: THIAMINE HCL 100 MG in NORMAL SALINE 50 ML IV SCH (17:13)
[2016-03-30] MEDS: LEVOFLOXACIN 750 MG/D5W RTU 750 MG/150 ML RTUPB IV SCH (17:59)
[2016-03-30] MEDS ORDERED: CEFEPIME 1 GM/D5W RTU 1 GM/50 ML RTUPB IV SCH (22:00)
[2016-03-31] MEDS: PROPOFOL 100 ML IV PRN ×7 (00:49→21:52)
[2016-03-31] MEDS: LORAZEPAM 24 MG/240 ML BAG IV PRN ×10 (00:49→22:52)
[2016-03-31 05:34] LABS: ARTERIAL BLOOD BASE EXCESS -1.3 mmol/L; ARTERIAL BLOOD O2 SATURATION 94.5 % (94-98)
[2016-03-31] MEDS: HEPARIN SOD (PORCINE) 5,000 UNIT/ML 1 ML SYRINGE SUBCUT SCH ×3 (05:34→21:51)
[2016-03-31] MEDS: DEXTROSE 5%-NORMAL SALINE 1,000 ML IV PRN ×3 (05:34→21:52)
[2016-03-31 05:58] LABS: ABSOLUTE EOSINOPHILS # (AUTO) 0.2 10^3/uL (0.0-0.6); ABSOLUTE LYMPHOCYTES (AUTO) 1.2 10^3/uL (0.5-4.7); ABSOLUTE NEUT (AUTO) 10.2 10^3/uL (1.7-8.2); BASOPHILS % (AUTO) 0.1 % (0-2); EOSINOPHILS % (AUTO) 1.3 % (0-6); HEMATOCRIT 34.7 % (37.9-51.0); HEMOGLOBIN 11.6 g/dL (13.5-17.0); HGB HCT DIFFERENCE 0.1; LYMPHOCYTES % (AUTO) 9.7 % (13-45); MEAN CORPUSCULAR HEMOGLOBIN 32.3 pg (27.0-33.4); MEAN CORPUSCULAR HGB CONC 33.6 g/dL (32.0-36.0); MEAN CORPUSCULAR VOLUME 96 fl (80-97); MONOCYTES % (AUTO) 8.2 % (3-13); RED CELL DISTRIBUTION WIDTH 15.1 % (11.5-14.0); SEGMENTED NEUTROPHILS % (AUTO) 80.7 % (42-78); WHITE BLOOD COUNT 12.7 10^3/uL (4.0-10.5)
[2016-03-31 06:24] LABS: ALANINE AMINOTRANSFERASE 35 U/L (21-72); ALBUMIN 2.4 g/dL (3.5-5.0); ALKALINE PHOSPHATASE 103 U/L (38-126); ANION GAP 9 (5-19); ASPARTATE AMINO TRANSFERASE 18 U/L (17-59); BILIRUBIN,TOTAL 0.5 mg/dL (0.2-1.3); BLOOD UREA NITROGEN 2 mg/dL (7-20); CALCIUM 8.1 mg/dL (8.4-10.2); CARBON DIOXIDE 22 mmol/L (22-30); CHLORIDE 108 mmol/L (98-107); CREATININE RESULT 0.47 mg/dL (0.52-1.25); GLUCOSE 129 mg/dL (75-110); POTASSIUM 3.4 mmol/L (3.6-5.0); SODIUM 139.4 mmol/L (137-145); TOTAL PROTEIN 5.1 g/dL (6.3-8.2)
--- NOTE | 2016-03-31 09:28 | PDOC PROGRESS REPORT ---
Subjective Progress Note for:: 03/31/16 Subjective:: Patient is intubated and sedated. Physical Exam Vital Signs: Temp Pulse Resp BP Pulse Ox 98.2 F 54 L 12 134/51 H 97 03/31/16 08:00 03/31/16 08:42 03/31/16 08:42 03/31/16 08:00 03/31/16 08:42 Intake & Output 03/30/16 03/31/16 04/01/16 06:59 06:59 06:59 Intake Total 6087 6836 Output Total 3875 3750 225 Balance 2212 3086 -225 Weight 77.5 kg General appearance: PRESENT: no acute distress Head exam: PRESENT: atraumatic, normocephalic Eye exam: PRESENT: conjunctiva pink. ABSENT: scleral icterus Ear exam: PRESENT: normal external ear exam Mouth exam: PRESENT: moist, tongue midline, other - ET tube in place Neck exam: ABSENT: JVD Respiratory exam: PRESENT: clear to auscultation iván. ABSENT: rales, rhonchi, wheezes Cardiovascular exam: PRESENT: RRR. ABSENT: diastolic murmur, rubs, systolic murmur GI/Abdominal exam: PRESENT: normal bowel sounds, soft. ABSENT: distended, guarding, mass, organolmegaly, rebound, tenderness Extremities exam: ABSENT: calf tenderness, clubbing, pedal edema Neurological exam: PRESENT: other - Intubated and sedated Psychiatric exam: PRESENT: other - Unable to assess Skin exam: PRESENT: dry, intact, warm. ABSENT: cyanosis, rash Results Laboratory Results: 03/31/16 05:02 03/31/16 05:02 03/31/16 03/31/16 03/31/16 05:02 05:02 05:25 WBC 12.7 H RBC 3.60 L Hgb 11.6 L Hct 34.7 L MCV 96 MCH 32.3 MCHC 33.6 RDW 15.1 H Plt Count 141 L Seg Neutrophils % 80.7 H Lymphocytes % 9.7 L Monocytes % 8.2 Eosinophils % 1.3 Basophils % 0.1 Absolute Neutrophils 10.2 H Absolute Lymphocytes 1.2 Absolute Monocytes 1.0 Absolute Eosinophils 0.2 Absolute Basophils 0.0 Carbonic Acid 1.26 HCO3/H2CO3 Ratio 18:1 ABG pH 7.38 ABG pCO2 41.8 ABG pO2 73.7 L ABG HCO3 23.9 ABG O2 Saturation 94.5 ABG Base Excess -1.3 FiO2 28% Sodium 139.4 Potassium 3.4 L Chloride 108 H Carbon Dioxide 22 Anion Gap 9 BUN 2 L Creatinine 0.47 L Est GFR ( Amer) > 60 Est GFR (Non-Af Amer) > 60 Glucose 129 H Calcium 8.1 L Total Bilirubin 0.5 AST 18 ALT 35 Alkaline Phosphatase 103 Total Protein 5.1 L Albumin 2.4 L 03/29/16 08:50 Tracheal Aspirate Gram Stain - Final 03/29/16 08:50 Tracheal Aspirate Sputum Culture - Final NORMAL DOMINIQUE 03/26/16 17:50 Troponin I < 0.012 Impressions: Chest X-Ray 03/31/16 00:00 IMPRESSION: Endotracheal and nasogastric tubes in good positioning. Early or developing infiltrate in the right lower lobe Assessment & Plan - Diagnosis (1) Alcohol withdrawal Qualifiers: Complication of substance-induced condition: with unspecified complication Qualified Code(s): F10.239 - Alcohol dependence with withdrawal, unspecified Is this a current diagnosis for this admission?: YesPlan: The patient has required high-dose Ativan and propofol. Patient becomes very agitated anytime if Ativan is decreased. We'll continue ventilatory support and will try to wean down each day as tolerated. (2) COPD (chronic obstructive pulmonary disease) Qualifiers: COPD type: unspecified COPD Qualified Code(s): J44.9 - Chronic obstructive pulmonary disease, unspecified Is this a current diagnosis for this admission?: YesPlan: The patient has no wheezing on exam currently. (3) Elevated LFTs Is this a current diagnosis for this admission?: YesPlan: Most likely secondary to his alcohol abuse. (4) HTN (hypertension) Qualifiers: Hypertension type: essential hypertension Qualified Code(s): I10 - Essential (primary) hypertension Is this a current diagnosis for this admission?: YesPlan: Blood pressure has improved the Ativan drip. Elevated blood pressures most likely related to alcohol withdrawal. (5) Fever Is this a current diagnosis for this admission?: YesPlan: Chest x-ray today shows a right lower lobe infiltrate. Patient was started on Levaquin yesterday for pneumonia.. - Time Time Spent with patient: 25-34 minutes - Inpatient Certification Medical Necessity: Need for IV Antibiotics - Plan Summary Plan Summary: We'll continue to try to wean the ventilator tolerated.
[2016-03-31] MEDS: FAMOTIDINE INJ/PF 20 MG/2 ML SDV IV SCH ×2 (10:30→21:51)
[2016-03-31] MEDS: THIAMINE HCL 100 MG in NORMAL SALINE 50 ML IV SCH (18:28)
[2016-03-31] MEDS: LEVOFLOXACIN 750 MG/D5W RTU 750 MG/150 ML RTUPB IV SCH (18:29)
[2016-04-01] MEDS: PROPOFOL 100 ML IV PRN ×7 (00:27→20:02)
[2016-04-01] MEDS: LORAZEPAM 24 MG/240 ML BAG IV PRN ×6 (01:16→20:56)
[2016-04-01 05:47] LABS: ARTERIAL BLOOD O2 SATURATION 90.1 % (94-98)
[2016-04-01 05:47] LABS: ABSOLUTE EOSINOPHILS # (AUTO) 0.2 10^3/uL (0.0-0.6); ABSOLUTE LYMPHOCYTES (AUTO) 1.6 10^3/uL (0.5-4.7); ABSOLUTE MONOCYTES (AUTO) 1.3 10^3/uL (0.1-1.4); ABSOLUTE NEUT (AUTO) 8.2 10^3/uL (1.7-8.2); BASOPHILS % (AUTO) 0.4 % (0-2); EOSINOPHILS % (AUTO) 2.2 % (0-6); HEMOGLOBIN 12.3 g/dL (13.5-17.0); HGB HCT DIFFERENCE 0.9; LYMPHOCYTES % (AUTO) 14.4 % (13-45); MEAN CORPUSCULAR HEMOGLOBIN 32.6 pg (27.0-33.4); MEAN CORPUSCULAR HGB CONC 34.2 g/dL (32.0-36.0); MEAN CORPUSCULAR VOLUME 95 fl (80-97); MONOCYTES % (AUTO) 11.5 % (3-13); RED BLOOD COUNT 3.78 10^6/uL (4.35-5.55); RED CELL DISTRIBUTION WIDTH 14.7 % (11.5-14.0); SEGMENTED NEUTROPHILS % (AUTO) 71.5 % (42-78); WHITE BLOOD COUNT 11.4 10^3/uL (4.0-10.5)
[2016-04-01] MEDS: HEPARIN SOD (PORCINE) 5,000 UNIT/ML 1 ML SYRINGE SUBCUT SCH ×3 (05:52→21:02)
[2016-04-01 06:00] LABS: ALANINE AMINOTRANSFERASE 38 U/L (21-72); ALBUMIN 2.8 g/dL (3.5-5.0); ALKALINE PHOSPHATASE 102 U/L (38-126); ANION GAP 7 (5-19); ASPARTATE AMINO TRANSFERASE 18 U/L (17-59); BILIRUBIN,TOTAL 0.6 mg/dL (0.2-1.3); BLOOD UREA NITROGEN 3 mg/dL (7-20); CARBON DIOXIDE 28 mmol/L (22-30); CHLORIDE 105 mmol/L (98-107); CREATININE RESULT 0.51 mg/dL (0.52-1.25); GLUCOSE 104 mg/dL (75-110); POTASSIUM 3.5 mmol/L (3.6-5.0); SODIUM 140.4 mmol/L (137-145); TOTAL PROTEIN 5.4 g/dL (6.3-8.2); TRIGLYCERIDES 99 mg/dL (<150)
[2016-04-01] MEDS: FAMOTIDINE INJ/PF 20 MG/2 ML SDV IV SCH ×2 (09:22→21:02)
--- NOTE | 2016-04-01 12:28 | PDOC PROGRESS REPORT ---
Subjective Progress Note for:: 04/01/16 Subjective:: Patient is intubated and sedated. Physical Exam Vital Signs: Temp Pulse Resp BP Pulse Ox 99.6 F 70 20 141/92 H 95 04/01/16 10:00 04/01/16 10:00 04/01/16 11:00 04/01/16 10:29 04/01/16 11:00 Intake & Output 03/31/16 04/01/16 04/02/16 06:59 06:59 06:59 Intake Total 6836 6181 Output Total 3750 3925 1000 Balance 3086 2256 -1000 Weight 83 kg General appearance: PRESENT: no acute distress Eye exam: PRESENT: conjunctiva pink. ABSENT: scleral icterus Mouth exam: PRESENT: moist, tongue midline, other - ET tube present Neck exam: ABSENT: JVD Respiratory exam: PRESENT: clear to auscultation iván. ABSENT: rales, rhonchi, wheezes Cardiovascular exam: PRESENT: RRR. ABSENT: diastolic murmur, rubs, systolic murmur GI/Abdominal exam: PRESENT: normal bowel sounds, soft. ABSENT: distended, guarding, mass, organolmegaly, rebound, tenderness Extremities exam: ABSENT: calf tenderness, clubbing, pedal edema Neurological exam: PRESENT: other - Intubated and sedated Psychiatric exam: PRESENT: other - Unable to assess Skin exam: PRESENT: dry, intact, warm. ABSENT: cyanosis, rash Results Laboratory Results: 04/01/16 05:33 04/01/16 05:33 04/01/16 04/01/16 04/01/16 05:30 05:33 05:33 WBC 11.4 H RBC 3.78 L Hgb 12.3 L Hct 36.0 L MCV 95 MCH 32.6 MCHC 34.2 RDW 14.7 H Plt Count 180 Seg Neutrophils % 71.5 Lymphocytes % 14.4 Monocytes % 11.5 Eosinophils % 2.2 Basophils % 0.4 Absolute Neutrophils 8.2 Absolute Lymphocytes 1.6 Absolute Monocytes 1.3 Absolute Eosinophils 0.2 Absolute Basophils 0.0 Carbonic Acid 1.30 HCO3/H2CO3 Ratio 20:1 ABG pH 7.41 ABG pCO2 43.2 ABG pO2 57.3 L ABG HCO3 26.9 H ABG O2 Saturation 90.1 L ABG Base Excess 2.0 FiO2 28% Sodium 140.4 Potassium 3.5 L Chloride 105 Carbon Dioxide 28 Anion Gap 7 BUN 3 L Creatinine 0.51 L Est GFR ( Amer) > 60 Est GFR (Non-Af Amer) > 60 Glucose 104 Calcium 8.0 L Total Bilirubin 0.6 AST 18 ALT 38 Alkaline Phosphatase 102 Total Protein 5.4 L Albumin 2.8 L Triglycerides 99 03/29/16 08:50 Tracheal Aspirate Gram Stain - Final 03/29/16 08:50 Tracheal Aspirate Sputum Culture - Final NORMAL DOMINIQUE 03/26/16 17:50 Troponin I < 0.012 Impressions: Chest X-Ray 04/01/16 00:00 IMPRESSION: STABLE APPEARANCE OF THE CHEST. SUPPORT DEVICES UNCHANGED. Assessment & Plan - Diagnosis (1) Alcohol withdrawal Qualifiers: Complication of substance-induced condition: with unspecified complication Qualified Code(s): F10.239 - Alcohol dependence with withdrawal, unspecified Is this a current diagnosis for this admission?: YesPlan: The patient has required high-dose Ativan and propofol. We'll continue ventilatory support and will try to wean down each day as tolerated. (2) COPD (chronic obstructive pulmonary disease) Qualifiers: COPD type: unspecified COPD Qualified Code(s): J44.9 - Chronic obstructive pulmonary disease, unspecified Is this a current diagnosis for this admission?: YesPlan: The patient has no wheezing on exam currently. (3) Elevated LFTs Is this a current diagnosis for this admission?: YesPlan: Most likely secondary to his alcohol abuse. (4) HTN (hypertension) Qualifiers: Hypertension type: essential hypertension Qualified Code(s): I10 - Essential (primary) hypertension Is this a current diagnosis for this admission?: YesPlan: Blood pressure has improved the Ativan drip. Elevated blood pressures most likely related to alcohol withdrawal. (5) Fever Is this a current diagnosis for this admission?: YesPlan: Chest x-ray today shows a right lower lobe infiltrate. Patient was started on Levaquin for pneumonia. - Time Time Spent with patient: 25-34 minutes - Inpatient Certification Medical Necessity: Need Close Monitoring Due to Risk of Patient Decompensation, Need for IV Antibiotics - Plan Summary Plan Summary: We'll continue to try to wean off the ventilator as tolerated.
[2016-04-01] MEDS: THIAMINE HCL 100 MG in NORMAL SALINE 50 ML IV SCH (18:05)
[2016-04-01] MEDS: LEVOFLOXACIN 750 MG/D5W RTU 750 MG/150 ML RTUPB IV SCH (18:25)
[2016-04-01] MEDS: METOPROLOL TARTRATE PF/INJ 5 MG/5 ML SDV IV PRN (20:57)
[2016-04-01] MEDS: DEXTROSE 5%-NORMAL SALINE 1,000 ML IV PRN (23:11)
[2016-04-02] MEDS: PROPOFOL 100 ML IV PRN ×3 (01:20→21:34)
[2016-04-02] MEDS: LORAZEPAM 24 MG/240 ML BAG IV PRN ×2 (02:51→11:21)
[2016-04-02] MEDS: DEXTROSE 5%-NORMAL SALINE 1,000 ML IV PRN ×2 (05:41→14:18)
[2016-04-02] MEDS: HEPARIN SOD (PORCINE) 5,000 UNIT/ML 1 ML SYRINGE SUBCUT SCH ×3 (05:42→21:08)
[2016-04-02 07:45] LABS: ANION GAP 11 (5-19); BLOOD UREA NITROGEN 3 mg/dL (7-20); CALCIUM 8.3 mg/dL (8.4-10.2); CARBON DIOXIDE 28 mmol/L (22-30); CHLORIDE 102 mmol/L (98-107); CREATININE RESULT 0.47 mg/dL (0.52-1.25); GLUCOSE 108 mg/dL (75-110); POTASSIUM 3.4 mmol/L (3.6-5.0); SODIUM 141.3 mmol/L (137-145)
[2016-04-02 07:46] LABS: ABSOLUTE BASOPHILS # (AUTO) 0.1 10^3/uL (0.0-0.2); ABSOLUTE EOSINOPHILS # (AUTO) 0.1 10^3/uL (0.0-0.6); ABSOLUTE LYMPHOCYTES (AUTO) 1.9 10^3/uL (0.5-4.7); ABSOLUTE MONOCYTES (AUTO) 1.6 10^3/uL (0.1-1.4); ABSOLUTE NEUT (AUTO) 7.2 10^3/uL (1.7-8.2); BASOPHILS % (AUTO) 0.5 % (0-2); EOSINOPHILS % (AUTO) 1.2 % (0-6); HEMATOCRIT 38.3 % (37.9-51.0); HEMOGLOBIN 13.1 g/dL (13.5-17.0); LYMPHOCYTES % (AUTO) 17.2 % (13-45); MEAN CORPUSCULAR HEMOGLOBIN 32.4 pg (27.0-33.4); MEAN CORPUSCULAR HGB CONC 34.1 g/dL (32.0-36.0); MEAN CORPUSCULAR VOLUME 95 fl (80-97); MONOCYTES % (AUTO) 14.9 % (3-13); RED BLOOD COUNT 4.03 10^6/uL (4.35-5.55); RED CELL DISTRIBUTION WIDTH 14.8 % (11.5-14.0); SEGMENTED NEUTROPHILS % (AUTO) 66.2 % (42-78); WHITE BLOOD COUNT 10.9 10^3/uL (4.0-10.5)
[2016-04-02] MEDS ORDERED: FUROSEMIDE INJ/PF 40 MG/4 ML SDV ONE (08:59)
[2016-04-02] MEDS: FAMOTIDINE INJ/PF 20 MG/2 ML SDV IV SCH ×2 (09:04→21:07)
[2016-04-02] MEDS ORDERED: FUROSEMIDE INJ/PF 20 MG/2 ML SDV IV ONE (09:30)
[2016-04-02] MEDS: POTASSIUM CHLORIDE 20 MEQ/15 ML UDCUP PO SCH ×2 (10:45→21:07)
--- NOTE | 2016-04-02 10:53 | PDOC PROGRESS REPORT ---
Subjective Progress Note for:: 04/02/16 Subjective:: Patient is intubated and less sedated Physical Exam Vital Signs: Temp Pulse Resp BP Pulse Ox 100.3 F 69 22 H 135/87 H 90 L 04/02/16 08:00 04/02/16 08:00 04/02/16 10:00 04/02/16 09:29 04/02/16 10:00 Intake & Output 04/01/16 04/02/16 04/03/16 06:59 06:59 06:59 Intake Total 6181 4603 Output Total 3925 3910 0 Balance 2256 693 0 Weight 83 kg 80.5 kg General appearance: PRESENT: no acute distress Eye exam: PRESENT: conjunctiva pink. ABSENT: scleral icterus Mouth exam: PRESENT: moist, tongue midline, other - Patient has some mild swelling of the tongue and lips. Neck exam: ABSENT: JVD Respiratory exam: PRESENT: clear to auscultation iván. ABSENT: rales, rhonchi, wheezes Cardiovascular exam: PRESENT: RRR. ABSENT: diastolic murmur, rubs, systolic murmur GI/Abdominal exam: PRESENT: normal bowel sounds, soft. ABSENT: distended, guarding, mass, organolmegaly, rebound, tenderness Extremities exam: ABSENT: calf tenderness, clubbing, pedal edema Neurological exam: PRESENT: awake Skin exam: PRESENT: dry, intact, warm. ABSENT: cyanosis, rash Results Laboratory Results: 04/02/16 04:49 04/02/16 04:49 04/02/16 04/02/16 04:49 04:49 WBC 10.9 H RBC 4.03 L Hgb 13.1 L Hct 38.3 MCV 95 MCH 32.4 MCHC 34.1 RDW 14.8 H Plt Count 236 Seg Neutrophils % 66.2 Lymphocytes % 17.2 Monocytes % 14.9 H Eosinophils % 1.2 Basophils % 0.5 Absolute Neutrophils 7.2 Absolute Lymphocytes 1.9 Absolute Monocytes 1.6 H Absolute Eosinophils 0.1 Absolute Basophils 0.1 Sodium 141.3 Potassium 3.4 L Chloride 102 Carbon Dioxide 28 Anion Gap 11 BUN 3 L Creatinine 0.47 L Est GFR ( Amer) > 60 Est GFR (Non-Af Amer) > 60 Glucose 108 Calcium 8.3 L 03/29/16 09:12 Blood Blood Culture - Final Staphylococcus Epidermidis 03/26/16 17:50 Troponin I < 0.012 Impressions: Chest X-Ray 04/01/16 00:00 IMPRESSION: STABLE APPEARANCE OF THE CHEST. SUPPORT DEVICES UNCHANGED. Assessment & Plan - Diagnosis (1) Alcohol withdrawal Qualifiers: Complication of substance-induced condition: with unspecified complication Qualified Code(s): F10.239 - Alcohol dependence with withdrawal, unspecified Is this a current diagnosis for this admission?: YesPlan: The patient has required high-dose Ativan and propofol this has decreased. We will try to wean off of the medication and possibly extubate later today if he does well. (2) COPD (chronic obstructive pulmonary disease) Qualifiers: COPD type: unspecified COPD Qualified Code(s): J44.9 - Chronic obstructive pulmonary disease, unspecified Is this a current diagnosis for this admission?: YesPlan: The patient has no wheezing on exam currently. (3) Elevated LFTs Is this a current diagnosis for this admission?: YesPlan: Most likely secondary to his alcohol abuse. (4) HTN (hypertension) Qualifiers: Hypertension type: essential hypertension Qualified Code(s): I10 - Essential (primary) hypertension Is this a current diagnosis for this admission?: YesPlan: Blood pressure has improved the Ativan drip. Elevated blood pressures most likely related to alcohol withdrawal. (5) Fever Is this a current diagnosis for this admission?: YesPlan: Patient is on Levaquin for pneumonia. - Time Time Spent with patient: 25-34 minutes - Inpatient Certification Medical Necessity: Need Close Monitoring Due to Risk of Patient Decompensation, Need for IV Antibiotics - Plan Summary Plan Summary: We'll try to extubate later today if he wakes up enough.
[2016-04-02] MEDS ORDERED: RACEPINEPHRINE HCL 2.25% NEB 0.5 ML AMPUL NEB PRN (12:00)
[2016-04-02] MEDS ORDERED: DEXAMETHASONE SOD PHOS INJ 10 MG/1 ML VIAL IV ONE (12:00)
[2016-04-02] MEDS: LEVOFLOXACIN 750 MG/D5W RTU 750 MG/150 ML RTUPB IV SCH (17:03)
[2016-04-02] MEDS: THIAMINE HCL 100 MG in NORMAL SALINE 50 ML IV SCH (17:03)
[2016-04-02] MEDS ORDERED: LORAZEPAM INJ 2 MG/1 ML VIAL ONE ×2 (20:17→21:07)
[2016-04-02 20:21] LABS: ANION GAP 10 (5-19); BLOOD UREA NITROGEN 8 mg/dL (7-20); CALCIUM 9.2 mg/dL (8.4-10.2); CARBON DIOXIDE 28 mmol/L (22-30); CHLORIDE 101 mmol/L (98-107); CREATININE RESULT 0.45 mg/dL (0.52-1.25); GLUCOSE 147 mg/dL (75-110); MAGNESIUM 1.6 mg/dL (1.6-2.3); POTASSIUM 3.7 mmol/L (3.6-5.0)
[2016-04-02] MEDS: POTASSI CL 20 MEQ/50 ML RIDER 50 ML IV SCH ×2 (20:34→22:41)
[2016-04-03] MEDS: DEXTROSE 5%-NORMAL SALINE 1,000 ML IV PRN ×4 (00:22→23:22)
[2016-04-03] MEDS: PROPOFOL 100 ML IV PRN (04:23)
[2016-04-03 05:02] LABS: ABSOLUTE LYMPHOCYTES (AUTO) 2.4 10^3/uL (0.5-4.7); ABSOLUTE MONOCYTES (AUTO) 1.3 10^3/uL (0.1-1.4); ABSOLUTE NEUT (AUTO) 6.5 10^3/uL (1.7-8.2); BASOPHILS % (AUTO) 0.5 % (0-2); EOSINOPHILS % (AUTO) 0.3 % (0-6); HEMATOCRIT 40.8 % (37.9-51.0); HEMOGLOBIN 14.1 g/dL (13.5-17.0); HGB HCT DIFFERENCE 1.5; LYMPHOCYTES % (AUTO) 23.7 % (13-45); MEAN CORPUSCULAR HEMOGLOBIN 32.5 pg (27.0-33.4); MEAN CORPUSCULAR HGB CONC 34.5 g/dL (32.0-36.0); MEAN CORPUSCULAR VOLUME 94 fl (80-97); MONOCYTES % (AUTO) 12.8 % (3-13); RED BLOOD COUNT 4.32 10^6/uL (4.35-5.55); RED CELL DISTRIBUTION WIDTH 14.7 % (11.5-14.0); SEGMENTED NEUTROPHILS % (AUTO) 62.7 % (42-78); WHITE BLOOD COUNT 10.3 10^3/uL (4.0-10.5)
[2016-04-03 05:13] LABS: ANION GAP 11 (5-19); BLOOD UREA NITROGEN 9 mg/dL (7-20); CARBON DIOXIDE 26 mmol/L (22-30); CHLORIDE 103 mmol/L (98-107); CREATININE RESULT 0.51 mg/dL (0.52-1.25); GLUCOSE 159 mg/dL (75-110); POTASSIUM 3.9 mmol/L (3.6-5.0); SODIUM 140.1 mmol/L (137-145)
[2016-04-03] MEDS: HEPARIN SOD (PORCINE) 5,000 UNIT/ML 1 ML SYRINGE SUBCUT SCH ×3 (06:05→21:48)
[2016-04-03] MEDS: POTASSIUM CHLORIDE 20 MEQ/15 ML UDCUP PO SCH ×2 (09:57→21:49)
[2016-04-03] MEDS: FAMOTIDINE INJ/PF 20 MG/2 ML SDV IV SCH ×2 (09:57→21:48)
--- NOTE | 2016-04-03 15:37 | PDOC PROGRESS REPORT ---
Subjective Progress Note for:: 04/03/16 Subjective:: Patient is intubated when he was first examined this morning. He has been extubated and is tolerating this well. Physical Exam Vital Signs: Temp Pulse Resp BP Pulse Ox 98.1 F 78 20 166/110 H 100 04/03/16 12:00 04/03/16 09:45 04/03/16 14:38 04/03/16 14:38 04/03/16 14:38 Intake & Output 04/02/16 04/03/16 04/04/16 06:59 06:59 06:59 Intake Total 4603 3367 Output Total 3910 1415 4919 Balance 634 -5852 -2657 Weight 80.5 kg 76 kg General appearance: PRESENT: no acute distress Eye exam: PRESENT: conjunctiva pink. ABSENT: scleral icterus Mouth exam: PRESENT: moist, tongue midline Neck exam: ABSENT: JVD Respiratory exam: PRESENT: clear to auscultation iván. ABSENT: rales, rhonchi, wheezes Cardiovascular exam: PRESENT: RRR. ABSENT: diastolic murmur, rubs, systolic murmur GI/Abdominal exam: PRESENT: normal bowel sounds, soft. ABSENT: distended, guarding, mass, organolmegaly, rebound, tenderness Extremities exam: ABSENT: calf tenderness, clubbing, pedal edema Neurological exam: PRESENT: awake Psychiatric exam: PRESENT: flat affect Skin exam: PRESENT: dry, intact, warm. ABSENT: cyanosis, rash Results Laboratory Results: 04/03/16 04:22 04/03/16 04:22 04/02/16 04/03/16 04/03/16 19:51 04:22 04:22 WBC 10.3 RBC 4.32 L Hgb 14.1 Hct 40.8 MCV 94 MCH 32.5 MCHC 34.5 RDW 14.7 H Plt Count 273 Seg Neutrophils % 62.7 Lymphocytes % 23.7 Monocytes % 12.8 Eosinophils % 0.3 Basophils % 0.5 Absolute Neutrophils 6.5 Absolute Lymphocytes 2.4 Absolute Monocytes 1.3 Absolute Eosinophils 0.0 Absolute Basophils 0.0 Sodium 139.0 140.1 Potassium 3.7 3.9 Chloride 101 103 Carbon Dioxide 28 26 Anion Gap 10 11 BUN 8 9 Creatinine 0.45 L 0.51 L Est GFR ( Amer) > 60 > 60 Est GFR (Non-Af Amer) > 60 > 60 Glucose 147 H 159 H Calcium 9.2 9.0 Magnesium 1.6 03/29/16 10:00 Blood Blood Culture - Final NO GROWTH IN 5 DAYS 03/26/16 17:50 Troponin I < 0.012 Impressions: Chest X-Ray 04/01/16 00:00 IMPRESSION: STABLE APPEARANCE OF THE CHEST. SUPPORT DEVICES UNCHANGED. Assessment & Plan - Diagnosis (1) Alcohol withdrawal Qualifiers: Complication of substance-induced condition: with unspecified complication Qualified Code(s): F10.239 - Alcohol dependence with withdrawal, unspecified Is this a current diagnosis for this admission?: YesPlan: The patient has required high-dose Ativan and propofol previously but he has been weaned off of that is only getting Ativan when necessary. He has been extubated today and is improved. He has IVC papers that have been taken out. Will ask psychiatry to evaluate now that he is off the ventilator. (2) COPD (chronic obstructive pulmonary disease) Qualifiers: COPD type: unspecified COPD Qualified Code(s): J44.9 - Chronic obstructive pulmonary disease, unspecified Is this a current diagnosis for this admission?: YesPlan: The patient has no wheezing on exam currently. (3) Elevated LFTs Is this a current diagnosis for this admission?: YesPlan: Most likely secondary to his alcohol abuse. (4) HTN (hypertension) Qualifiers: Hypertension type: essential hypertension Qualified Code(s): I10 - Essential (primary) hypertension Is this a current diagnosis for this admission?: YesPlan: Blood pressure has increased somewhat. We'll start him on antihypertensives today. (5) Fever Is this a current diagnosis for this admission?: YesPlan: Patient is on Levaquin for pneumonia. - Time Time Spent with patient: 25-34 minutes - Inpatient Certification Medical Necessity: Need for IV Antibiotics
[2016-04-03] MEDS: THIAMINE HCL 100 MG in NORMAL SALINE 50 ML IV SCH (17:35)
[2016-04-03] MEDS: LEVOFLOXACIN 750 MG/D5W RTU 750 MG/150 ML RTUPB IV SCH (17:35)
[2016-04-03] MEDS: METOPROLOL TARTRATE PF/INJ 5 MG/5 ML SDV IV PRN (17:36)
[2016-04-03] MEDS: METOPROLOL SUCCINATE 50 MG TAB.SR.24H PO SCH (17:37)
[2016-04-03] MEDS: LORAZEPAM INJ 2 MG/1 ML VIAL IV PRN (23:22)
[2016-04-04] MEDS: METOPROLOL TARTRATE PF/INJ 5 MG/5 ML SDV IV PRN (02:06)
[2016-04-04] MEDS: LORAZEPAM INJ 2 MG/1 ML VIAL IV PRN ×5 (02:07→19:55)
[2016-04-04 04:35] LABS: ABSOLUTE BASOPHILS # (AUTO) 0.1 10^3/uL (0.0-0.2); ABSOLUTE EOSINOPHILS # (AUTO) 0.2 10^3/uL (0.0-0.6); ABSOLUTE LYMPHOCYTES (AUTO) 2.3 10^3/uL (0.5-4.7); ABSOLUTE MONOCYTES (AUTO) 1.5 10^3/uL (0.1-1.4); ABSOLUTE NEUT (AUTO) 8.2 10^3/uL (1.7-8.2); BASOPHILS % (AUTO) 0.8 % (0-2); EOSINOPHILS % (AUTO) 1.9 % (0-6); HEMOGLOBIN 13.9 g/dL (13.5-17.0); HGB HCT DIFFERENCE 0.7; LYMPHOCYTES % (AUTO) 18.5 % (13-45); MEAN CORPUSCULAR VOLUME 94 fl (80-97); MONOCYTES % (AUTO) 11.9 % (3-13); RED BLOOD COUNT 4.35 10^6/uL (4.35-5.55); RED CELL DISTRIBUTION WIDTH 14.6 % (11.5-14.0); SEGMENTED NEUTROPHILS % (AUTO) 66.9 % (42-78); WHITE BLOOD COUNT 12.2 10^3/uL (4.0-10.5)
[2016-04-04 04:51] LABS: ANION GAP 8 (5-19); BLOOD UREA NITROGEN 9 mg/dL (7-20); CALCIUM 8.9 mg/dL (8.4-10.2); CARBON DIOXIDE 29 mmol/L (22-30); CHLORIDE 101 mmol/L (98-107); CREATININE RESULT 0.49 mg/dL (0.52-1.25); GLUCOSE 119 mg/dL (75-110); POTASSIUM 3.3 mmol/L (3.6-5.0); SODIUM 137.9 mmol/L (137-145)
[2016-04-04] MEDS: HEPARIN SOD (PORCINE) 5,000 UNIT/ML 1 ML SYRINGE SUBCUT SCH ×3 (05:13→21:35)
[2016-04-04] MEDS: DEXTROSE 5%-NORMAL SALINE 1,000 ML IV PRN ×2 (06:31→14:02)
--- NOTE | 2016-04-04 08:36 | PDOC PROGRESS REPORT ---
Subjective Progress Note for:: 04/04/16 Subjective:: Patient extubated for 24 hours. No desaturation or respiratory distress reported. Patient is slow to response. Has not received any sedatives according to the staff. Patient denies any diarrhea or pain. Patient reports some mild shortness of breath otherwise. No nausea or vomiting. Physical Exam Vital Signs: Temp Pulse Resp BP Pulse Ox 98.4 F 61 25 H 135/85 H 96 04/04/16 08:00 04/04/16 08:00 04/04/16 08:00 04/04/16 08:00 04/04/16 08:00 Intake & Output 04/03/16 04/04/16 04/05/16 06:59 06:59 06:59 Intake Total 3367 3362 Output Total 4610 5100 250 Balance -2557 -1493 -250 Weight 76 kg General appearance: PRESENT: no acute distress, cooperative, other - Slow to respond Head exam: PRESENT: normocephalic Eye exam: PRESENT: EOMI Mouth exam: PRESENT: moist, neck supple Respiratory exam: PRESENT: unlabored. ABSENT: crackles, rhonchi, wheezes Cardiovascular exam: PRESENT: RRR. ABSENT: gallop GI/Abdominal exam: PRESENT: normal bowel sounds, soft. ABSENT: distended, tenderness Extremities exam: ABSENT: pedal edema Neurological exam: PRESENT: alert, awake, other - Somnolent and slow to respond Skin exam: PRESENT: dry, warm. ABSENT: cyanosis Results Laboratory Results: 04/04/16 03:56 04/04/16 03:56 04/04/16 04/04/16 03:56 03:56 WBC 12.2 H RBC 4.35 Hgb 13.9 Hct 41.0 MCV 94 MCH 32.0 MCHC 34.0 RDW 14.6 H Plt Count 356 Seg Neutrophils % 66.9 Lymphocytes % 18.5 Monocytes % 11.9 Eosinophils % 1.9 Basophils % 0.8 Absolute Neutrophils 8.2 Absolute Lymphocytes 2.3 Absolute Monocytes 1.5 H Absolute Eosinophils 0.2 Absolute Basophils 0.1 Sodium 137.9 Potassium 3.3 L Chloride 101 Carbon Dioxide 29 Anion Gap 8 BUN 9 Creatinine 0.49 L Est GFR ( Amer) > 60 Est GFR (Non-Af Amer) > 60 Glucose 119 H Calcium 8.9 03/29/16 10:00 Blood Blood Culture - Final NO GROWTH IN 5 DAYS 03/26/16 17:50 Troponin I < 0.012 Impressions: Chest X-Ray 04/01/16 00:00 IMPRESSION: STABLE APPEARANCE OF THE CHEST. SUPPORT DEVICES UNCHANGED. Assessment & Plan - Diagnosis (1) Alcohol withdrawal Qualifiers: Complication of substance-induced condition: with unspecified complication Qualified Code(s): F10.239 - Alcohol dependence with withdrawal, unspecified Is this a current diagnosis for this admission?: Yes (2) Aspiration pneumonia Qualifiers: Aspiration pneumonia type: unspecified Laterality: right Lung location: lower lobe of lung Qualified Code(s): J69.0 - Pneumonitis due to inhalation of food and vomit Is this a current diagnosis for this admission?: Yes (3) Hypokalemia Is this a current diagnosis for this admission?: Yes (4) COPD (chronic obstructive pulmonary disease) Qualifiers: COPD type: unspecified COPD Qualified Code(s): J44.9 - Chronic obstructive pulmonary disease, unspecified Is this a current diagnosis for this admission?: Yes (5) HTN (hypertension) Qualifiers: Hypertension type: essential hypertension Qualified Code(s): I10 - Essential (primary) hypertension Is this a current diagnosis for this admission?: Yes (6) Anxiety and depression Is this a current diagnosis for this admission?: Yes (7) History of seizure Is this a current diagnosis for this admission?: Yes - Time Time Spent with patient: 25-34 minutes - Plan Summary Plan Summary: We will continue IV fluids but decrease the rate. We will decrease the Ativan as well. We will evaluate swallowing and begin oral intake. Continue supportive care. Continue vitamin supplementation. Continue Levaquin. Clindamycin. Transfer to [facility].
[2016-04-04] MEDS: POTASSI CL 20 MEQ/50 ML RIDER 50 ML IV SCH ×2 (08:41→09:55)
[2016-04-04] MEDS: FAMOTIDINE INJ/PF 20 MG/2 ML SDV IV SCH ×2 (09:17→21:36)
[2016-04-04] MEDS: POTASSIUM CHLORIDE 20 MEQ/15 ML UDCUP PO SCH ×2 (09:18→21:36)
[2016-04-04] MEDS: BENZONATATE 100 MG CAPSULE PO SCH ×2 (13:59→21:36)
[2016-04-04] MEDS: CLINDAMYCIN 600 MG/D5W RTU 50 ML IV SCH ×2 (14:09→21:36)
[2016-04-04] MEDS: THIAMINE HCL 100 MG in NORMAL SALINE 50 ML IV SCH (17:07)
[2016-04-04] MEDS: LEVOFLOXACIN 750 MG/D5W RTU 750 MG/150 ML RTUPB IV SCH (17:07)
[2016-04-04] MEDS: METOPROLOL SUCCINATE 50 MG TAB.SR.24H PO SCH (17:08)
[2016-04-04] MEDS: ACETAMINOPHEN 325 MG TABLET PO PRN (19:56)
[2016-04-05] MEDS: LORAZEPAM INJ 2 MG/1 ML VIAL IV PRN ×5 (00:13→23:55)
[2016-04-05] MEDS: DEXTROSE 5%-NORMAL SALINE 1,000 ML IV PRN (00:14)
[2016-04-05] MEDS: METOPROLOL TARTRATE PF/INJ 5 MG/5 ML SDV IV PRN (00:45)
[2016-04-05] MEDS: ACETAMINOPHEN 325 MG TABLET PO PRN ×2 (00:46→21:37)
[2016-04-05 04:32] LABS: ANION GAP 9 (5-19); BLOOD UREA NITROGEN 11 mg/dL (7-20); CALCIUM 9.1 mg/dL (8.4-10.2); CARBON DIOXIDE 26 mmol/L (22-30); CHLORIDE 102 mmol/L (98-107); CREATININE RESULT 0.51 mg/dL (0.52-1.25); GLUCOSE 96 mg/dL (75-110); MAGNESIUM 1.9 mg/dL (1.6-2.3); PHOSPHORUS 4.4 mg/dL (2.5-4.5); SODIUM 136.9 mmol/L (137-145)
[2016-04-05] MEDS: BENZONATATE 100 MG CAPSULE PO SCH ×3 (05:06→21:37)
[2016-04-05] MEDS: CLINDAMYCIN 600 MG/D5W RTU 50 ML IV SCH ×3 (05:06→21:37)
[2016-04-05] MEDS: HEPARIN SOD (PORCINE) 5,000 UNIT/ML 1 ML SYRINGE SUBCUT SCH ×3 (05:07→21:38)
--- NOTE | 2016-04-05 09:01 | PSYCHOLOGICAL NOTE ---
Psych Note - Psych Note Psych Note: Patient is a 45 year old male who is under IVC and admitted to [facility] for acute ETOH withdrawal related complications. Patient was intubated until yesterday. I attempted to consult this patient; however, his speech was almost inaudible at times and was unable to engage in conversation. Will attempt at a later time, likely tomorrow. Thank you kindly for this consultation.
--- NOTE | 2016-04-05 10:00 | PDOC PROGRESS REPORT ---
Subjective Progress Note for:: 04/05/16 Subjective:: Patient has been extubated for 2 days. No desaturation or respiratory distress reported. Patient is slow to response but is more awake and alert. Speech is more fluent and understandable. Has not received any sedatives according to the staff. Patient now complains of pain but he had it for multiple years and he said he has been dealing with it all his life. No nausea or vomiting. Patient wants to eat. Physical Exam Vital Signs: Temp Pulse Resp BP Pulse Ox 97.4 F 64 18 145/99 H 95 04/05/16 04:00 04/05/16 08:00 04/05/16 09:00 04/05/16 08:53 04/05/16 09:00 Intake & Output 04/04/16 04/05/16 04/06/16 06:59 06:59 06:59 Intake Total 3362 2720 Output Total 5100 2160 Balance -1738 560 General appearance: PRESENT: no acute distress, cooperative Head exam: PRESENT: normocephalic Eye exam: PRESENT: EOMI Mouth exam: PRESENT: moist, neck supple Neck exam: ABSENT: JVD Respiratory exam: PRESENT: rhonchi - few bilateral. ABSENT: wheezes Cardiovascular exam: PRESENT: RRR. ABSENT: gallop GI/Abdominal exam: PRESENT: normal bowel sounds, soft. ABSENT: distended, tenderness Extremities exam: ABSENT: pedal edema Neurological exam: PRESENT: alert, awake, oriented to situation Skin exam: PRESENT: dry, warm. ABSENT: cyanosis Results Laboratory Results: 04/04/16 03:56 04/05/16 03:51 04/05/16 03:51 Sodium 136.9 L Potassium 4.0 Chloride 102 Carbon Dioxide 26 Anion Gap 9 BUN 11 Creatinine 0.51 L Est GFR ( Amer) > 60 Est GFR (Non-Af Amer) > 60 Glucose 96 Calcium 9.1 Phosphorus 4.4 Magnesium 1.9 03/26/16 17:50 Troponin I < 0.012 Impressions: Chest X-Ray 04/01/16 00:00 IMPRESSION: STABLE APPEARANCE OF THE CHEST. SUPPORT DEVICES UNCHANGED. Assessment & Plan - Diagnosis (1) Alcohol withdrawal Qualifiers: Complication of substance-induced condition: with unspecified complication Qualified Code(s): F10.239 - Alcohol dependence with withdrawal, unspecified Is this a current diagnosis for this admission?: Yes (2) Aspiration pneumonia Qualifiers: Aspiration pneumonia type: unspecified Laterality: right Lung location: lower lobe of lung Qualified Code(s): J69.0 - Pneumonitis due to inhalation of food and vomit Is this a current diagnosis for this admission?: Yes (3) Hypokalemia Is this a current diagnosis for this admission?: Yes (4) COPD (chronic obstructive pulmonary disease) Qualifiers: COPD type: unspecified COPD Qualified Code(s): J44.9 - Chronic obstructive pulmonary disease, unspecified Is this a current diagnosis for this admission?: Yes (5) HTN (hypertension) Qualifiers: Hypertension type: essential hypertension Qualified Code(s): I10 - Essential (primary) hypertension Is this a current diagnosis for this admission?: Yes (6) Anxiety and depression Is this a current diagnosis for this admission?: Yes (7) History of seizure Is this a current diagnosis for this admission?: Yes - Time Time Spent with patient: 25-34 minutes - Plan Summary Plan Summary: Continue antibiotic treatment. We will recheck WBC. It was somehow trending up , we will check a urine culture, and discontinue Contreras catheter. We will advance diet. Lesion can be transferred to telemetry ruiz. Patient is IVC'd, psychiatry to follow up.
--- NOTE | 2016-04-05 11:58 | PSYCHOLOGICAL NOTE ---
Psych Note - Psych Note Psych Note: Patient is a 45 year old male who has been admitted to [facility] due to acute alcohol withdrawal. Patient is known to this clinician and has been evaluated multiple episodes of similar etiology. Patient has a lengthy history of alcohol abuse and severe withdrawal. Patient has previously reported he initially started drinking in his childhood years. Patient was initially admitted; however on or around March 28 he was hallucinating during his withdrawal and was attempting to leave AMA. Patient was placed on involuntary commitment by hospitalist Elham presumably to prevent him from leaving due to safety concerns over his medical condition. Patient was eventually intubated and extubated now 48+ hours ago. Patient today is alert and oriented. His speech is clear and able to engage in evaluation. Patient however is irritable and unwilling to engage in conversation. He does denies suicidal/homicidal ideations. He states he will attempt to maintain his sobriety, possibly through the assistance of an alcohol treatment program. Attempted to discuss patient's living situation and home life; however, he refused to do so. Patient is alert and oriented 4. Mood is irritable with normal affect. Patient denied suicidal/homicidal ideations, intent, plan, means. Patient denied A/VH; delusions not noted. Patient did not appear to be responding to any internal stimuli. Thought processes were guarded, but organized. Conversational speech was clear and he was able to articulate his words. Note this is a significant improvement from yesterday. Intellectual abilities were estimated within average range. Attention and focus were fair. Insight, judgment, impulse control were poor. Alcohol use disorder, severe, recurrent, per history Patient is psychiatrically cleared and recommended for rescind IVC. Patient denies suicidal/homicidal ideations, intent, plan, or means. Patient states he does not wish for assistance with seeking treatment for substance abuse, and states there is an scrap sorter coming tomorrow from a treatment center. He states he feels discharge planning can assist. I consulted with in regards to the care and management of this patient. Hospitalist made aware and states he is in agreement with disposition and recommendations.
[2016-04-05] MEDS: POTASSIUM CHLORIDE 20 MEQ/15 ML UDCUP PO SCH ×2 (12:41→21:37)
[2016-04-05] MEDS: FAMOTIDINE INJ/PF 20 MG/2 ML SDV IV SCH ×2 (12:41→21:37)
[2016-04-05] MEDS: LEVOFLOXACIN 750 MG/D5W RTU 750 MG/150 ML RTUPB IV SCH (18:52)
[2016-04-05] MEDS: METOPROLOL SUCCINATE 50 MG TAB.SR.24H PO SCH (18:52)
[2016-04-05] MEDS: THIAMINE HCL 100 MG in NORMAL SALINE 50 ML IV SCH (18:54)
[2016-04-05] MEDS ORDERED: CARBOXYMETHYLCELLULOSE SOD 0.5% 0.4 ML DROPERETTE OU PRN (19:00)
[2016-04-06 04:40] LABS: ABSOLUTE BASOPHILS # (AUTO) 0.1 10^3/uL (0.0-0.2); ABSOLUTE EOSINOPHILS # (AUTO) 0.2 10^3/uL (0.0-0.6); ABSOLUTE LYMPHOCYTES (AUTO) 3.3 10^3/uL (0.5-4.7); ABSOLUTE MONOCYTES (AUTO) 1.2 10^3/uL (0.1-1.4); ABSOLUTE NEUT (AUTO) 6.5 10^3/uL (1.7-8.2); BASOPHILS % (AUTO) 0.6 % (0-2); EOSINOPHILS % (AUTO) 2.1 % (0-6); HEMATOCRIT 42.6 % (37.9-51.0); HEMOGLOBIN 14.8 g/dL (13.5-17.0); HGB HCT DIFFERENCE 1.8; LYMPHOCYTES % (AUTO) 29.2 % (13-45); MEAN CORPUSCULAR HEMOGLOBIN 32.5 pg (27.0-33.4); MEAN CORPUSCULAR HGB CONC 34.7 g/dL (32.0-36.0); MEAN CORPUSCULAR VOLUME 94 fl (80-97); MONOCYTES % (AUTO) 10.3 % (3-13); RED BLOOD COUNT 4.55 10^6/uL (4.35-5.55); RED CELL DISTRIBUTION WIDTH 14.7 % (11.5-14.0); SEGMENTED NEUTROPHILS % (AUTO) 57.8 % (42-78); WHITE BLOOD COUNT 11.3 10^3/uL (4.0-10.5)
[2016-04-06] MEDS: ACETAMINOPHEN 325 MG TABLET PO PRN ×2 (05:01→15:12)
[2016-04-06] MEDS: BENZONATATE 100 MG CAPSULE PO SCH ×3 (05:01→21:50)
[2016-04-06] MEDS: CLINDAMYCIN 600 MG/D5W RTU 50 ML IV SCH (05:02)
[2016-04-06] MEDS: LORAZEPAM INJ 2 MG/1 ML VIAL IV PRN ×5 (05:02→23:38)
[2016-04-06] MEDS: HEPARIN SOD (PORCINE) 5,000 UNIT/ML 1 ML SYRINGE SUBCUT SCH ×3 (05:03→21:50)
--- NOTE | 2016-04-06 09:07 | PDOC PROGRESS REPORT ---
Subjective Progress Note for:: 04/06/16 Subjective:: Patient has been extubated for 3 days. No desaturation or respiratory distress reported. Patient's response as improved and is more awake and alert. Speech is more fluent and understandable. Patient has chronic pain and had it for multiple years and he said he has been dealing with it all his life. No nausea or vomiting. Patient wants to move around and ambulate. Denies having any diarrhea or dizziness. Physical Exam Vital Signs: Temp Pulse Resp BP Pulse Ox 98.4 F 80 22 H 128/75 H 87 L 04/06/16 00:00 04/05/16 20:00 04/06/16 06:00 04/06/16 05:48 04/06/16 06:00 Intake & Output 04/05/16 04/06/16 04/07/16 06:59 06:59 06:59 Intake Total 2720 975 Output Total 2160 515 Balance 560 460 General appearance: PRESENT: no acute distress, cooperative Head exam: PRESENT: normocephalic Eye exam: PRESENT: EOMI Mouth exam: PRESENT: moist, neck supple Neck exam: ABSENT: JVD Respiratory exam: PRESENT: rhonchi - few, unlabored Cardiovascular exam: PRESENT: RRR. ABSENT: gallop GI/Abdominal exam: PRESENT: normal bowel sounds, soft. ABSENT: distended, tenderness Extremities exam: ABSENT: pedal edema Neurological exam: PRESENT: alert, awake, oriented to situation Psychiatric exam: ABSENT: agitated Focused psych exam: ABSENT: restlessness Skin exam: PRESENT: dry, warm. ABSENT: cyanosis Results Laboratory Results: 04/06/16 04:03 04/05/16 03:51 04/06/16 04:03 WBC 11.3 H RBC 4.55 Hgb 14.8 Hct 42.6 MCV 94 MCH 32.5 MCHC 34.7 RDW 14.7 H Plt Count 438 Seg Neutrophils % 57.8 Lymphocytes % 29.2 Monocytes % 10.3 Eosinophils % 2.1 Basophils % 0.6 Absolute Neutrophils 6.5 Absolute Lymphocytes 3.3 Absolute Monocytes 1.2 Absolute Eosinophils 0.2 Absolute Basophils 0.1 03/26/16 17:50 Troponin I < 0.012 Impressions: Chest X-Ray 04/01/16 00:00 IMPRESSION: STABLE APPEARANCE OF THE CHEST. SUPPORT DEVICES UNCHANGED. Assessment & Plan - Diagnosis (1) Alcohol withdrawal Qualifiers: Complication of substance-induced condition: with unspecified complication Qualified Code(s): F10.239 - Alcohol dependence with withdrawal, unspecified Is this a current diagnosis for this admission?: Yes (2) Aspiration pneumonia Qualifiers: Aspiration pneumonia type: unspecified Laterality: right Lung location: lower lobe of lung Qualified Code(s): J69.0 - Pneumonitis due to inhalation of food and vomit Is this a current diagnosis for this admission?: Yes (3) Hypokalemia Is this a current diagnosis for this admission?: Yes (4) COPD (chronic obstructive pulmonary disease) Qualifiers: COPD type: unspecified COPD Qualified Code(s): J44.9 - Chronic obstructive pulmonary disease, unspecified Is this a current diagnosis for this admission?: Yes (5) HTN (hypertension) Qualifiers: Hypertension type: essential hypertension Qualified Code(s): I10 - Essential (primary) hypertension Is this a current diagnosis for this admission?: Yes (6) Anxiety and depression Is this a current diagnosis for this admission?: Yes (7) History of seizure Is this a current diagnosis for this admission?: Yes - Time Time Spent with patient: 15-24 minutes - Plan Summary Plan Summary: Shift to oral antibiotics today. Out of bed, IV fluid to KVO. Begin physical therapy. Transfer to medical floor. Patient has been cleared by psychiatry service and IVC has been rescinded. Patient denies any suicidal or homicidal ideations at all.
[2016-04-06] MEDS: LEVOFLOXACIN 750 MG TABLET PO SCH (10:03)
[2016-04-06] MEDS: FAMOTIDINE 20 MG TABLET PO SCH ×2 (10:03→21:50)
[2016-04-06] MEDS: CLINDAMYCIN HCL 150 MG CAPSULE PO SCH ×3 (13:09→23:38)
[2016-04-06] MEDS ORDERED: LEVOFLOXACIN 750 MG/D5W RTU 750 MG/150 ML RTUPB IV SCH (18:00)
[2016-04-06] MEDS: METOPROLOL SUCCINATE 50 MG TAB.SR.24H PO SCH (18:40)
[2016-04-06] MEDS: THIAMINE HCL 100 MG in NORMAL SALINE 50 ML IV SCH (18:40)
[2016-04-07] MEDS: HEPARIN SOD (PORCINE) 5,000 UNIT/ML 1 ML SYRINGE SUBCUT SCH ×3 (05:38→21:19)
[2016-04-07] MEDS: CLINDAMYCIN HCL 150 MG CAPSULE PO SCH ×3 (05:39→18:50)
[2016-04-07] MEDS: BENZONATATE 100 MG CAPSULE PO SCH ×2 (05:39→13:39)
[2016-04-07] MEDS: FAMOTIDINE 20 MG TABLET PO SCH ×2 (10:49→21:19)
[2016-04-07] MEDS: LEVOFLOXACIN 750 MG TABLET PO SCH (10:49)
[2016-04-07] MEDS: LORAZEPAM INJ 2 MG/1 ML VIAL IV PRN (13:40)
--- NOTE | 2016-04-07 15:26 | PDOC PROGRESS REPORT ---
Subjective Progress Note for:: 04/07/16 Subjective:: Patient is more awake and alert. Able to ambulate with a walker. Complains of knee pain however. Patient is being worked up to transfer directly to an alcohol rehabilitation program. He complains of effusion intermittently. No nausea or vomiting, shortness of breath, no diarrhea, no chills or fever. Physical Exam Vital Signs: Temp Pulse Resp BP Pulse Ox 98.1 F 66 16 139/84 H 95 04/07/16 00:00 04/07/16 00:00 04/07/16 00:00 04/07/16 00:00 04/07/16 00:00 Intake & Output 04/06/16 04/07/16 04/08/16 06:59 06:59 06:59 Intake Total 975 802 Output Total 515 Balance 460 802 Weight 76 kg General appearance: PRESENT: no acute distress, cooperative Head exam: PRESENT: normocephalic Eye exam: PRESENT: EOMI Mouth exam: PRESENT: moist, neck supple Neck exam: ABSENT: JVD Respiratory exam: PRESENT: clear to auscultation iván. ABSENT: rhonchi, wheezes Cardiovascular exam: PRESENT: RRR. ABSENT: gallop GI/Abdominal exam: PRESENT: normal bowel sounds, soft. ABSENT: distended, tenderness Extremities exam: ABSENT: pedal edema Neurological exam: PRESENT: alert, awake, oriented to situation Skin exam: PRESENT: dry, warm. ABSENT: cyanosis Results Laboratory Results: 04/06/16 04:03 04/05/16 03:51 04/05/16 14:22 Catheterized Urine Urine Culture - Final Mixed Urogenital Ethel 03/26/16 17:50 Troponin I < 0.012 Impressions: Chest X-Ray 04/01/16 00:00 IMPRESSION: STABLE APPEARANCE OF THE CHEST. SUPPORT DEVICES UNCHANGED. Assessment & Plan - Diagnosis (1) Alcohol withdrawal Qualifiers: Complication of substance-induced condition: with unspecified complication Qualified Code(s): F10.239 - Alcohol dependence with withdrawal, unspecified Is this a current diagnosis for this admission?: Yes (2) Aspiration pneumonia Qualifiers: Aspiration pneumonia type: unspecified Laterality: right Lung location: lower lobe of lung Qualified Code(s): J69.0 - Pneumonitis due to inhalation of food and vomit Is this a current diagnosis for this admission?: Yes (3) Hypokalemia Is this a current diagnosis for this admission?: Yes (4) COPD (chronic obstructive pulmonary disease) Qualifiers: COPD type: unspecified COPD Qualified Code(s): J44.9 - Chronic obstructive pulmonary disease, unspecified Is this a current diagnosis for this admission?: Yes (5) HTN (hypertension) Qualifiers: Hypertension type: essential hypertension Qualified Code(s): I10 - Essential (primary) hypertension Is this a current diagnosis for this admission?: Yes (6) Anxiety and depression Is this a current diagnosis for this admission?: Yes (7) History of seizure Is this a current diagnosis for this admission?: Yes - Time Time Spent with patient: 25-34 minutes - Plan Summary Plan Summary: We will obtain an x-ray of the knee. We will continue the antibiotics. Check ammonia level. We will try to limit benzodiazepine use. Continue supportive care. Await rehabilitation.
[2016-04-07] MEDS ORDERED: LORAZEPAM INJ 2 MG/1 ML VIAL IV PRN (15:27)
[2016-04-07] MEDS: THIAMINE HCL 100 MG in NORMAL SALINE 50 ML IV SCH (18:50)
[2016-04-07] MEDS: METOPROLOL SUCCINATE 50 MG TAB.SR.24H PO SCH (18:50)
[2016-04-07] MEDS ORDERED: FOLIC ACID 1 MG TABLET PO ONE (21:00)
[2016-04-07] MEDS ORDERED: THIAMINE HCL 100 MG TABLET PO ONE (21:00)
[2016-04-07] MEDS ORDERED: MULTIVITAMIN TABLET PO ONE (21:00)
[2016-04-07] MEDS: LORAZEPAM 1 MG TABLET PO PRN (21:35)
[2016-04-08] MEDS: CLINDAMYCIN HCL 150 MG CAPSULE PO SCH ×5 (00:53→23:26)
[2016-04-08] MEDS: LORAZEPAM 1 MG TABLET PO PRN ×4 (04:02→23:25)
[2016-04-08] MEDS: ACETAMINOPHEN 325 MG TABLET PO PRN ×2 (04:14→10:43)
[2016-04-08] MEDS: HEPARIN SOD (PORCINE) 5,000 UNIT/ML 1 ML SYRINGE SUBCUT SCH ×3 (07:23→23:24)
[2016-04-08] MEDS: FAMOTIDINE 20 MG TABLET PO SCH ×2 (10:42→23:25)
[2016-04-08] MEDS: LEVOFLOXACIN 750 MG TABLET PO SCH (10:43)
--- NOTE | 2016-04-08 11:27 | PDOC PROGRESS REPORT ---
Subjective Progress Note for:: 04/08/16 Subjective:: Denies any new complaints. No shortness of breath or chest congestion. No chest fever or diarrhea. Patient is doing well. Wanting to go to alcohol rehabilitation program outpatient. Wanting to go there directly however. No confusion. Physical Exam Vital Signs: Temp Pulse Resp BP Pulse Ox 97.9 F 69 16 113/73 98 04/08/16 08:00 04/08/16 08:00 04/08/16 08:00 04/08/16 08:00 04/08/16 08:00 Intake & Output 04/07/16 04/08/16 04/09/16 06:59 06:59 06:59 Intake Total 802 920 Balance 802 920 Weight 76 kg General appearance: PRESENT: no acute distress, cooperative Head exam: PRESENT: normocephalic Eye exam: PRESENT: EOMI Mouth exam: PRESENT: moist, neck supple Neck exam: ABSENT: JVD Respiratory exam: PRESENT: clear to auscultation iván Cardiovascular exam: PRESENT: RRR. ABSENT: gallop GI/Abdominal exam: PRESENT: normal bowel sounds, soft. ABSENT: distended, tenderness Extremities exam: ABSENT: pedal edema Neurological exam: PRESENT: alert, awake, oriented to person, oriented to place , oriented to time, oriented to situation Skin exam: PRESENT: dry, warm. ABSENT: cyanosis Results Laboratory Results: 04/06/16 04:03 04/05/16 03:51 04/07/16 16:00 Ammonia < 8.7 L 03/26/16 17:50 Troponin I < 0.012 Impressions: Chest X-Ray 04/01/16 00:00 IMPRESSION: STABLE APPEARANCE OF THE CHEST. SUPPORT DEVICES UNCHANGED. Knee X-Ray 04/07/16 00:00 IMPRESSION: NEGATIVE STUDY OF THE LEFT KNEE. NO RADIOGRAPHIC EVIDENCE OF ACUTE INJURY. Assessment & Plan - Diagnosis (1) Alcohol withdrawal Qualifiers: Complication of substance-induced condition: with unspecified complication Qualified Code(s): F10.239 - Alcohol dependence with withdrawal, unspecified Is this a current diagnosis for this admission?: Yes (2) Aspiration pneumonia Qualifiers: Aspiration pneumonia type: unspecified Laterality: right Lung location: lower lobe of lung Qualified Code(s): J69.0 - Pneumonitis due to inhalation of food and vomit Is this a current diagnosis for this admission?: Yes (3) Hypokalemia Is this a current diagnosis for this admission?: Yes (4) COPD (chronic obstructive pulmonary disease) Qualifiers: COPD type: unspecified COPD Qualified Code(s): J44.9 - Chronic obstructive pulmonary disease, unspecified Is this a current diagnosis for this admission?: Yes (5) HTN (hypertension) Qualifiers: Hypertension type: essential hypertension Qualified Code(s): I10 - Essential (primary) hypertension Is this a current diagnosis for this admission?: Yes (6) Anxiety and depression Is this a current diagnosis for this admission?: Yes (7) History of seizure Is this a current diagnosis for this admission?: Yes - Time Time Spent with patient: 15-24 minutes - Plan Summary Plan Summary: Continue current medications. We will discharge the patient in the morning. Patient reports he does not have any ride to go to there today but his friend is freed tomorrow can pick him up and bring him to the facility.
[2016-04-08] MEDS: THIAMINE HCL 100 MG TABLET PO SCH (17:18)
[2016-04-08] MEDS: MULTIVITAMIN TABLET PO SCH (17:18)
[2016-04-08] MEDS: FOLIC ACID 1 MG TABLET PO SCH (17:18)
[2016-04-08] MEDS: METOPROLOL SUCCINATE 50 MG TAB.SR.24H PO SCH (17:18)
[2016-04-09] MEDS: ACETAMINOPHEN 325 MG TABLET PO PRN ×2 (01:03→20:08)
[2016-04-09] MEDS: HEPARIN SOD (PORCINE) 5,000 UNIT/ML 1 ML SYRINGE SUBCUT SCH ×3 (05:38→22:17)
[2016-04-09] MEDS: CLINDAMYCIN HCL 150 MG CAPSULE PO SCH ×2 (05:38→11:32)
[2016-04-09] MEDS: LORAZEPAM 1 MG TABLET PO PRN ×3 (05:40→18:42)
[2016-04-09] MEDS: FAMOTIDINE 20 MG TABLET PO SCH ×2 (09:45→22:17)
[2016-04-09] MEDS: LEVOFLOXACIN 750 MG TABLET PO SCH (09:45)
--- NOTE | 2016-04-09 14:00 | PDOC PROGRESS REPORT ---
[id number] Yesterday he reported he is ready as someone is bringing him to the facility for alcohol rehabilitation. Apparently today the patient is reporting that the city planner did not contact the rehabilitation program and made arrangements for him. He does not want to leave the hospital at this time. He stated that he is not able to walk, although nursing staff reports patient is ambulatory even without the walker. Physical Exam Vital Signs: Temp Pulse Resp BP Pulse Ox 97.9 F 68 17 126/89 H 96 04/09/16 07:59 04/09/16 07:59 04/09/16 07:59 04/09/16 07:59 04/09/16 07:59 Intake & Output 04/08/16 04/09/16 04/10/16 06:59 06:59 06:59 Intake Total 920 1560 Balance 920 1560 Weight 75.3 kg General appearance: PRESENT: no acute distress, thin Head exam: PRESENT: normocephalic Eye exam: PRESENT: EOMI Neck exam: ABSENT: JVD Respiratory exam: PRESENT: clear to auscultation iván Cardiovascular exam: PRESENT: RRR GI/Abdominal exam: PRESENT: soft. ABSENT: distended, tenderness Extremities exam: ABSENT: pedal edema Neurological exam: PRESENT: alert, awake, oriented to situation Skin exam: PRESENT: dry, warm. ABSENT: cyanosis Results Laboratory Results: 04/06/16 04:03 04/05/16 03:51 03/26/16 17:50 Troponin I < 0.012 Impressions: Chest X-Ray 04/01/16 00:00 IMPRESSION: STABLE APPEARANCE OF THE CHEST. SUPPORT DEVICES UNCHANGED. Knee X-Ray 04/07/16 00:00 IMPRESSION: NEGATIVE STUDY OF THE LEFT KNEE. NO RADIOGRAPHIC EVIDENCE OF ACUTE INJURY. Assessment & Plan - Diagnosis (1) Alcohol withdrawal Qualifiers: Complication of substance-induced condition: with unspecified complication Qualified Code(s): F10.239 - Alcohol dependence with withdrawal, unspecified Is this a current diagnosis for this admission?: Yes (2) Aspiration pneumonia Qualifiers: Aspiration pneumonia type: unspecified Laterality: right Lung location: lower lobe of lung Qualified Code(s): J69.0 - Pneumonitis due to inhalation of food and vomit Is this a current diagnosis for this admission?: Yes (3) Hypokalemia Is this a current diagnosis for this admission?: Yes (4) COPD (chronic obstructive pulmonary disease) Qualifiers: COPD type: unspecified COPD Qualified Code(s): J44.9 - Chronic obstructive pulmonary disease, unspecified Is this a current diagnosis for this admission?: Yes (5) HTN (hypertension) Qualifiers: Hypertension type: essential hypertension Qualified Code(s): I10 - Essential (primary) hypertension Is this a current diagnosis for this admission?: Yes (6) Anxiety and depression Is this a current diagnosis for this admission?: Yes (7) History of seizure Is this a current diagnosis for this admission?: Yes - Time Time Spent with patient: Less than 15 minutes - Plan Summary Plan Summary: We will ask city planner in a.m. to make arrangements for patient to transfer if possible. Patient completed 10 days of treatment for aspiration. We will discontinue antibiotics. We will continue to wean Ativan and shifted to oral.
[2016-04-09] MEDS: METOPROLOL SUCCINATE 50 MG TAB.SR.24H PO SCH (17:36)
[2016-04-09] MEDS: MULTIVITAMIN TABLET PO SCH (17:38)
[2016-04-09] MEDS: THIAMINE HCL 100 MG TABLET PO SCH (17:38)
[2016-04-09] MEDS: FOLIC ACID 1 MG TABLET PO SCH (17:39)
[2016-04-10] MEDS: ACETAMINOPHEN 325 MG TABLET PO PRN ×2 (03:04→13:00)
[2016-04-10] MEDS: LORAZEPAM 1 MG TABLET PO PRN ×2 (03:04→12:05)
[2016-04-10] MEDS: HEPARIN SOD (PORCINE) 5,000 UNIT/ML 1 ML SYRINGE SUBCUT SCH ×2 (05:28→14:01)
[2016-04-10] MEDS: FAMOTIDINE 20 MG TABLET PO SCH (10:34)
[2016-04-10] MEDS ORDERED: LORAZEPAM 1 MG TABLET PO PRN (15:17)
[2016-04-10 16:29] VITALS: BP 107/63
[2016-04-10] MEDS: FOLIC ACID 1 MG TABLET PO SCH (17:49)
[2016-04-10] MEDS: METOPROLOL SUCCINATE 50 MG TAB.SR.24H PO SCH (17:49)
[2016-04-10] MEDS: MULTIVITAMIN TABLET PO SCH (17:49)
[2016-04-10] MEDS: THIAMINE HCL 100 MG TABLET PO SCH (17:49)
--- NOTE | 2016-04-18 08:09 | PDOC DISCHARGE SUMMARY ---
General - Admit/Disc Date/PCP Admission Date/Primary Care Provider: 03/26/16 13:13 Discharge Date: 04/10/16 - Discharge Diagnosis (1) Alcohol withdrawal Is this a current diagnosis for this admission?: Yes (2) Aspiration pneumonia Is this a current diagnosis for this admission?: Yes (3) Hypokalemia Is this a current diagnosis for this admission?: Yes (4) COPD (chronic obstructive pulmonary disease) Is this a current diagnosis for this admission?: Yes (5) HTN (hypertension) Is this a current diagnosis for this admission?: Yes (6) Anxiety and depression Is this a current diagnosis for this admission?: Yes (7) History of seizure Is this a current diagnosis for this admission?: Yes - Additional Information Resuscitation Status: Full Code Discharge Diet: Regular Discharge Activity: Activity As Tolerated, Balance Activity w/Rest Home Medications: Folic Acid [Folvite 1 mg Tablet] 1 mg PO QPM #30 tablet 04/10/16 Lorazepam [Ativan 0.5 mg Tablet] 0.5 mg PO Q6H PRN #20 tab 04/10/16 Metoprolol Succinate [Toprol Xl 50 mg Tab.sr] 50 mg PO QPM #30 tab.sr.24h Multivitamin [Tab-A-Alber (Multiple Vitamin) Tablet] 1 tab PO QPM #30 tablet Thiamine HCl [Thiamine 100 mg Tablet] 100 mg PO QPM #30 tablet 04/10/16 Tramadol HCl [Ultram 50 mg Tablet] 50 mg PO Q6HP PRN #40 tablet 04/10/16 Additional Information: Alcohol rehabilitation program of choice History of Present Illness Patient complains of: Alcohol withdrawal History of Present Illness: SHAQ ROCHE is a 45 year old male, is a 45-year-old male with history of heavy alcohol use, seizure disorder, COPD, hypertension presented to the hospital with acute alcohol withdrawal. Reportedly his drinking got worse when his years ago. There was report of visual hallucinations and nervousness. Patient brought to the emergency room and given Ativan and referred for admission. For details please refer to history and physical examination performed by the admitting physician. Hospital Course Hospital Course: The patient was admitted to [facility]. The patient was given intravenous fluids, intravenous Ativan, supplemental thiamine, folic acid, multivitamins. Electrolytes were monitored and replaced accordingly. He scores was complicated by worsening agitation and withdrawal symptoms requiring intravenous continuous Ativan infusion and eventual intubation. Patient was placed on mechanical ventilator. He developed aspiration pneumonia and given intravenous antibiotic. Patient was placed on involuntary commitment by the on- call physician the night his withdrawal got worse. Patient was placed on bronchodilators as well and eventually with time his withdrawal symptoms improve and resolve and was successfully extubated. Patient was referred to psychiatry service and eventually recommended outpatient alcohol rehabilitation program and discontinuation of the involuntary commitment. This was eventually rescinded. Patient transferred to telemetry floor, physical therapy instituted. Patient was referred to town planner and social service where he was tried to be placed on the rehabilitation program however this was unsuccessful. Reportedly the patient's insurance is from [place] and therefore is not covered locally. Patient was given multiple facility to consider for outpatient rehabilitation. Patient eventually was discharged improved, with home health for therapy. Rolling walker was given. He was advised to seek rehabilitation as soon as he can, and follow-up with his primary care physician in one week. Physical Exam Vital Signs: Temp Pulse Resp BP Pulse Ox 97.9 F 67 18 107/63 99 04/10/16 17:44 04/10/16 17:44 04/10/16 17:44 04/10/16 17:44 04/10/16 17:44 General appearance: PRESENT: no acute distress, cooperative Head exam: PRESENT: normocephalic Eye exam: PRESENT: EOMI Mouth exam: PRESENT: moist, neck supple Neck exam: ABSENT: JVD Respiratory exam: PRESENT: clear to auscultation iván Cardiovascular exam: PRESENT: RRR. ABSENT: gallop GI/Abdominal exam: PRESENT: soft. ABSENT: distended Extremities exam: ABSENT: pedal edema Neurological exam: PRESENT: alert, awake, oriented to person, oriented to place , oriented to time, oriented to situation Psychiatric exam: ABSENT: homicidal ideation, suicidal ideation Skin exam: PRESENT: dry, warm. ABSENT: cyanosis Results Laboratory Results: 04/06/16 04:03 04/05/16 03:51 03/26/16 17:50 Troponin I < 0.012 Impressions: Chest X-Ray 04/01/16 00:00 IMPRESSION: STABLE APPEARANCE OF THE CHEST. SUPPORT DEVICES UNCHANGED. Knee X-Ray 04/07/16 00:00 IMPRESSION: NEGATIVE STUDY OF THE LEFT KNEE. NO RADIOGRAPHIC EVIDENCE OF ACUTE INJURY. Qualifiers PATEINT BEING DISCHARGED WITH ANY OF THE FOLLOWING DIAGNOSIS?: No Plan Discharge Plan: Follow-up with primary care physician in one week Time Spent: Less than 30 Minutes
== END 2016-04-10 17:57 | disposition home or self-care (01) | DRG 896 ==
LOC: ER 07:51 → EH 13:13 → 3N 14:56 → ICU 03-28 05:25 → 5 04-06 17:40
PROVIDERS: ADMIT Family Medicine; ATTEND Family Medicine
PROC: 0BH17EZ Insertion of Endotracheal Airway into Trachea, Via Natural or Artificial Opening (ICD-10-PCS; principal; 2016-03-28)
PROC: 5A1955Z Respiratory Ventilation, Greater than 96 Consecutive Hours (ICD-10-PCS; 2016-03-28)
DX: F10.231 Alcohol dependence with withdrawal delirium (principal); J69.0 Pneumonitis due to inhalation of food and vomit; G40.509 Epileptic seizures related to external causes, not intractable, without status epilepticus; F10.251 Alcohol dependence with alcohol-induced psychotic disorder with hallucinations; I10 Essential (primary) hypertension; J44.9 Chronic obstructive pulmonary disease, unspecified; M19.90 Unspecified osteoarthritis, unspecified site; F17.210 Nicotine dependence, cigarettes, uncomplicated; E87.6 Hypokalemia; F41.9 Anxiety disorder, unspecified; F32.9 Major depressive disorder, single episode, unspecified; F12.90 Cannabis use, unspecified, uncomplicated; G89.4 Chronic pain syndrome; M25.562 Pain in left knee; Z78.1 Physical restraint status; Z88.0 Allergy status to penicillin
CPT/HCPCS: 31500; 36415; 36600; 71010; 80048; 80053; 82140; 82550; 82553; 82803; 83690; 83735; 84100; 84478; 84484; 85025; 85610; 87040; 87070; 87077; 87086; 87186; 87205; 93005; 93010; 94002; 94003; 94640; 96365; 96366; 96375; 99291; J0330; J1100; J1644; J1940; J1956; J2060; J2704; J3411; J3475; J3480; J3490; J7030; S0028

== ENCOUNTER 2016-04-25 15:40 | Emergency (ER) | payer SELFPAY ==
--- NOTE | 2016-04-25 15:48 | ER Document Report ---
ED Medical Screen (RME) - General Stated Complaint: SUICIDAL IDEATION,HEADACHE TRAVEL OUTSIDE OF THE [place] IN LAST 30 DAYS: No - Related Data Allergies/Adverse Reactions: Penicillins Allergy (Verified 03/26/16 08:06) nicotine Adverse Reaction (Verified 03/27/16 23:24) Hallucinations Past Medical History - Past Medical History Cardiac Medical History: Reports: Hx Hypertension Denies: Hx Congestive Heart Failure, Hx DVT, Hx Heart Attack, Hx Hypercholesterolemia, Hx Pulmonary Embolism Pulmonary Medical History: Reports: Hx COPD Neurological Medical History: Reports: Hx Seizures - [place] secondary to alcohol withdrawal. Endocrine Medical History: Denies: Hx Diabetes Mellitus Type 1, Hx Diabetes Mellitus Type 2, Hx Hyperthyroidism, Hx Hypothyroidism Renal/ Medical History: Denies: Hx Peritoneal Dialysis GI Medical History: Denies: Hx Cirrhosis, Hx Hepatitis Musculoskeltal Medical History: Reports Hx Arthritis Skin Medical History: Denies Hx Eczema, Denies Hx Psoriasis Psychiatric Medical History: Reports: Hx Depression Infectious Medical History: Denies: Hx Hepatitis Past Surgical History: Reports: Hx Abdominal Surgery, Hx Orthopedic Surgery - left shoulder - Immunizations Hx Diphtheria, Pertussis, Tetanus Vaccination: Yes Physical Exam - Vital signs Vitals: Temp Pulse Resp BP Pulse Ox 98.9 F 98 20 120/72 97 04/25/16 15:45 04/25/16 15:45 04/25/16 15:45 04/25/16 15:45 04/25/16 15:45 Course - Vital Signs Vital signs: Temp Pulse Resp BP Pulse Ox 98.9 F 98 20 120/72 97 04/25/16 15:45 04/25/16 15:45 04/25/16 15:45 04/25/16 15:45 04/25/16 15:45
--- NOTE | 2016-04-25 15:51 | ER Document Report ---
ED Medical Screen (RME) - General Stated Complaint: SUICIDAL IDEATION,HEADACHE Notes: 45-year-old male with history of heavy alcohol use, seizure disorder, COPD, hypertension presented to the hospital with acute alcohol withdrawal and was discharged on 04/11 for DT's. He admits to depression with suicidal ideations for a few weeks. Plan to use a knife to hurt himself is new today. Also admits to anxiety and headache. I have greeted and performed a rapid initial assessment of this patient. A comprehensive ED assessment and evaluation of the patient, analysis of test results and completion of the medical decision making process will be conducted by additional ED providers. TRAVEL OUTSIDE OF THE [place] IN LAST 30 DAYS: No - Related Data Allergies/Adverse Reactions: Penicillins Allergy (Verified 03/26/16 08:06) nicotine Adverse Reaction (Verified 03/27/16 23:24) Hallucinations Past Medical History - Past Medical History Cardiac Medical History: Reports: Hx Hypertension Denies: Hx Congestive Heart Failure, Hx DVT, Hx Heart Attack, Hx Hypercholesterolemia, Hx Pulmonary Embolism Pulmonary Medical History: Reports: Hx COPD Neurological Medical History: Reports: Hx Seizures - [place] secondary to alcohol withdrawal. Endocrine Medical History: Denies: Hx Diabetes Mellitus Type 1, Hx Diabetes Mellitus Type 2, Hx Hyperthyroidism, Hx Hypothyroidism Renal/ Medical History: Denies: Hx Peritoneal Dialysis GI Medical History: Denies: Hx Cirrhosis, Hx Hepatitis Musculoskeltal Medical History: Reports Hx Arthritis Skin Medical History: Denies Hx Eczema, Denies Hx Psoriasis Psychiatric Medical History: Reports: Hx Depression Infectious Medical History: Denies: Hx Hepatitis Past Surgical History: Reports: Hx Abdominal Surgery, Hx Orthopedic Surgery - left shoulder - Immunizations Hx Diphtheria, Pertussis, Tetanus Vaccination: Yes Physical Exam - Vital signs Vitals: Temp Pulse Resp BP Pulse Ox 98.9 F 98 20 120/72 97 04/25/16 15:45 04/25/16 15:45 04/25/16 15:45 04/25/16 15:45 04/25/16 15:45 Course - Vital Signs Vital signs: Temp Pulse Resp BP Pulse Ox 98.9 F 98 20 120/72 97 04/25/16 15:45 04/25/16 15:45 04/25/16 15:45 04/25/16 15:45 04/25/16 15:45
[2016-04-25 16:36] LABS: ABSOLUTE EOSINOPHILS # (AUTO) 0.2 10^3/uL (0.0-0.6); ABSOLUTE MONOCYTES (AUTO) 0.5 10^3/uL (0.1-1.4); ABSOLUTE NEUT (AUTO) 11.6 10^3/uL (1.7-8.2); BASOPHILS % (AUTO) 0.3 % (0-2); EOSINOPHILS % (AUTO) 1.2 % (0-6); HEMATOCRIT 42.1 % (37.9-51.0); HEMOGLOBIN 14.6 g/dL (13.5-17.0); HGB HCT DIFFERENCE 1.7; LYMPHOCYTES % (AUTO) 13.9 % (13-45); MEAN CORPUSCULAR HEMOGLOBIN 32.4 pg (27.0-33.4); MEAN CORPUSCULAR HGB CONC 34.7 g/dL (32.0-36.0); MEAN CORPUSCULAR VOLUME 93 fl (80-97); MONOCYTES % (AUTO) 3.3 % (3-13); RED BLOOD COUNT 4.51 10^6/uL (4.35-5.55); RED CELL DISTRIBUTION WIDTH 14.7 % (11.5-14.0); SEGMENTED NEUTROPHILS % (AUTO) 81.3 % (42-78); WHITE BLOOD COUNT 14.3 10^3/uL (4.0-10.5)
[2016-04-25 16:46] LABS: APPEARANCE,URINE CLOUDY; BILIRUBIN,URINE MODERATE (NEGATIVE); GLUCOSE, URINE NEGATIVE (NEGATIVE); KETONES,URINE 20 mg/dL (NEGATIVE); LEUKOCYTE ESTERASE,URINE TRACE (NEGATIVE); NITRITE,URINE NEGATIVE (NEGATIVE); PROTEIN,URINE >=500 mg/dL (NEGATIVE); URINE SPECIFIC GRAVITY 1.031
[2016-04-25 16:59] LABS: ALANINE AMINOTRANSFERASE 24 U/L (21-72); ALBUMIN 4.4 g/dL (3.5-5.0); ALCOHOL < 10 mg/dL (NONE DETECTED); ALKALINE PHOSPHATASE 64 U/L (38-126); ANION GAP 14 (5-19); ASPARTATE AMINO TRANSFERASE 14 U/L (17-59); BLOOD UREA NITROGEN 10 mg/dL (7-20); CALCIUM 9.8 mg/dL (8.4-10.2); CARBON DIOXIDE 21 mmol/L (22-30); CHLORIDE 103 mmol/L (98-107); CREATININE RESULT 0.59 mg/dL (0.52-1.25); GLUCOSE 246 mg/dL (75-110); SODIUM 138.4 mmol/L (137-145); TOTAL PROTEIN 7.1 g/dL (6.3-8.2)
[2016-04-25 17:00] LABS: URINE BARBITURATES SCREEN NEGATIVE; URINE METHADONE SCREEN NEGATIVE; URINE OPIATES LOW NEGATIVE; URINE PHENCYCLIDINE SCREEN NEGATIVE
--- NOTE | 2016-04-25 18:02 | PSYCHOLOGICAL NOTE ---
Psych Note - Psych Note Psych Note: Patient is a 45 year old male who presents via family/friend who dropped patient off and left. Patient reported upon arrival that he was experiencing SI with plan to use a knife. Note, patient has presented numerous times in the past with similar plan. Patient has a long history of SA, specifically alcohol and was discharged from Hospitalist's services just over a week ago at which time he was admitted to ETOH withdrawal. Please note, consultation request was ordered upon arrival; however, patient was not given a room for 2+ hours, thus the delay in evaluation. Patient states he has been sober, but unable to follow up with opt services and or AA, etc. Patient states he started taking Celexa, which was an older prescription from [place]. Patient states he did not fill any prescriptions he was discharged with last week. Patient states he does not think the Celexa is working, and is unable to report an expiration date , or dosage. Patient states he has no motivation to care for himself and just wants to starve himself to . Patient states his ex-girlfriend forced him to come. Discussed with him the use of the word, "force," as he came on his own free will, perhaps at her insistence, but none the less, voluntary. Patient states he did not want her to call the police to handcuff him. Patient states if he had a gun, he would shoot himself. Discussed with patient that during each episode he states he wants to use a knife to harm himself, but does not. Discussed that the patient presented and has not harmed himself, actually suggests that he is willing to help himself. Patient's exgirlfriend, Zoila : unable to leave message, no answer At this time, consultation cannot be completed due to missing medical information (lab work, etc) and inability to obtain collateral. Patient will be reevaluated at a later time.
[2016-04-25] MEDS ORDERED: DIAZEPAM 5 MG TABLET ONE (23:38)
[2016-04-26] MEDS ORDERED: DIAZEPAM 5 MG TABLET PO ONE (00:17)
--- NOTE | 2016-04-26 02:51 | ER Document Report ---
ED General - General Chief Complaint: Suicidal Ideation Stated Complaint: SUICIDAL IDEATION,HEADACHE Notes: Patient is a 45-year-old male presents with suicidal ideation with a plan to cut himself kill himself. Patient states he's been sober since being discharged from the hospital but that he feels that is making his depression worse. States he is having increasing thoughts of wanting to harm himself today and told his significant other about this and she encouraged him to come to the emergency department. Patient states if he had a gun he would shoot himself. He is unable to clarify anything that seems to worsen his symptoms and notes that the antidepressant is currently taking does not improve his symptoms. He has not seen his psychiatrist regarding today's concerns. He denies any acute medical concerns TRAVEL OUTSIDE OF THE [place] IN LAST 30 DAYS: No - Related Data Allergies/Adverse Reactions: No Known Allergies Allergy (Unverified 04/25/16 15:53) Past Medical History - General Information source: Patient - Social History Smoking Status: Current Every Day Smoker Chew tobacco use (# tins/day): No Frequency of alcohol use: None Drug Abuse: None Lives with: Alone Family History: Reviewed & Not Pertinent Patient has suicidal ideation: Yes - Past Medical History Cardiac Medical History: Reports: Hx Hypertension Denies: Hx Congestive Heart Failure, Hx DVT, Hx Heart Attack, Hx Hypercholesterolemia, Hx Pulmonary Embolism Pulmonary Medical History: Reports: Hx COPD Neurological Medical History: Reports: Hx Seizures - [place] secondary to alcohol withdrawal. Endocrine Medical History: Denies: Hx Diabetes Mellitus Type 1, Hx Diabetes Mellitus Type 2, Hx Hyperthyroidism, Hx Hypothyroidism Renal/ Medical History: Denies: Hx Peritoneal Dialysis GI Medical History: Denies: Hx Cirrhosis, Hx Hepatitis Musculoskeltal Medical History: Reports Hx Arthritis Skin Medical History: Denies Hx Eczema, Denies Hx Psoriasis Psychiatric Medical History: Reports: Hx Depression Infectious Medical History: Denies: Hx Hepatitis Past Surgical History: Reports: Hx Abdominal Surgery, Hx Orthopedic Surgery - left shoulder - Immunizations Hx Diphtheria, Pertussis, Tetanus Vaccination: Yes Review of Systems - Review of Systems Notes: Constitutional: Negative for fever. HENT: Negative for sore throat. Eyes: Negative for visual changes. Cardiovascular: Negative for chest pain. Respiratory: Negative for shortness of breath. Gastrointestinal: Negative for abdominal pain, vomiting or diarrhea. Genitourinary: Negative for dysuria. Musculoskeletal: Negative for back pain. Skin: Negative for rash. Neurological: Negative for headaches, weakness or numbness. 10 point ROS negative except as marked above and in HPI. Physical Exam - Vital signs Vitals: Temp Pulse Resp BP Pulse Ox 98.9 F 98 20 120/72 97 04/25/16 15:45 04/25/16 15:45 04/25/16 15:45 04/25/16 15:45 04/25/16 15:45 Interpretation: Normal Notes: PHYSICAL EXAMINATION: GENERAL: Well-appearing, well-nourished and in no acute distress. HEAD: Atraumatic, normocephalic. EYES: Pupils equal round and reactive to light, extraocular movements intact, sclera anicteric, conjunctiva are normal. ENT: nares patent, oropharynx clear without exudates. Moist mucous membranes. NECK: Normal range of motion, supple without lymphadenopathy LUNGS: Breath sounds clear to auscultation bilaterally and equal. No wheezes rales or rhonchi. HEART: Regular rate and rhythm without murmurs ABDOMEN: Soft, nontender, normoactive bowel sounds. No guarding, no rebound. No masses appreciated. EXTREMITIES: Normal range of motion, no pitting or edema. No cyanosis. NEUROLOGICAL: No focal neurological deficits. Moves all extremities spontaneously and on command. PSYCH: Anxious, tearful. Actively expressing suicidal ideation SKIN: Warm, Dry, normal turgor, no rashes or lesions noted. Course - Re-evaluation Re-evalutation: 04/26/16 02:49 Patient presents with suicidal ideation with plan to harm himself by cutting his wrists. 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 It doesn 't hurt and if I could get ahold of one of those I would just do it". I'm also concerned as patient has been suicidal in the past although often under the influence of alcohol and he is sober today. His medical screening laboratories reveal some incidental findings that I do not think are significant to his presentation today including a mild leukocytosis and some mild hyperglycemia which is also reflected in glucouria. Medical screening exam is otherwise unremarkable and he is cleared for evaluation by psychiatry. - Vital Signs Vital signs: Temp Pulse Resp BP Pulse Ox 98.9 F 98 18 120/72 97 04/25/16 15:45 04/25/16 15:45 04/25/16 20:00 04/25/16 15:45 04/25/16 15:45 - Laboratory Result Diagrams: 04/25/16 16:00 04/25/16 16:00 Laboratory results interpreted by me: 04/25/16 04/25/16 04/25/16 16:00 16:00 16:00 WBC 14.3 H RDW 14.7 H Seg Neutrophils % 81.3 H Absolute Neutrophils 11.6 H Carbon Dioxide 21 L Glucose 246 H AST 14 L Urine Protein >=500 H Urine Ketones 20 H Urine Blood SMALL H Urine Bilirubin MODERATE H Urine Urobilinogen 4.0 H Ur Leukocyte Esterase TRACE H Salicylates < 1.0 L Acetaminophen < 10 L - EKG Interpretation by Me Additional EKG results interpreted by me: 04/26/16 02:51 No sinus rhythm. Rate 80. No ST elevations or depressions. QTC is 494. Discharge - Discharge Clinical Impression: Anxiety and depression, Suicidal ideation Condition: Good Disposition: PSYCH HOSP/UNIT
--- NOTE | 2016-04-26 07:59 | EKG REPORT ---
SEVERITY:- ABNORMAL ECG - SINUS RHYTHM DICKSON, CONSIDER BIATRIAL ABNORMALITIES PROBABLE INFERIOR INFARCT, AGE INDETERMINATE BORDERLINE PROLONGED QT INTERVAL : Confirmed by: Sandra Ledezma MD 26-Apr-2016 07:57:53
[2016-04-26] MEDS ORDERED: ACETAMINOPHEN 325 MG TABLET PO ONE (08:17)
--- NOTE | 2016-04-26 09:01 | PSYCHOLOGICAL NOTE ---
Psych Note - Psych Note Psych Note: Patient is a 45 year old male who presents via family/friend who dropped patient off and left. Patient reported upon arrival that he was experiencing SI with plan to use a knife. Note, patient has presented numerous times in the past with similar plan. Patient has a long history of SA, specifically alcohol and was discharged from Hospitalist's services just over a week ago at which time he was admitted to ETOH withdrawal. Please note, consultation request was ordered upon arrival; however, patient was not given a room for 2+ hours, thus the delay in evaluation. Patient states he has been sober, but unable to follow up with opt services and or AA, etc. Patient states he started taking Celexa, which was an older prescription from [place]. Patient states he did not fill any prescriptions he was discharged with last week. Patient states he does not think the Celexa is working, and is unable to report an expiration date , or dosage. Patient states he has no motivation to care for himself and just wants to starve himself to . Patient states his ex-girlfriend forced him to come. Discussed with him the use of the word, "force," as he came on his own free will, perhaps at her insistence, but none the less, voluntary. Patient states he did not want her to call the police to handcuff him. Patient states if he had a gun, he would shoot himself. Discussed with patient that during each episode he states he wants to use a knife to harm himself, but does not. Discussed that the patient presented and has not harmed himself, actually suggests that he is willing to help himself. Reevaluation Patient states that nothing has changed, he "really doesn't care anymore, I don' t want to live, nothing makes sense anymore." Patient explains that he doesn't have his gun to shoot himself because "my ex took it. " He continued to disclose that he does live alone and has a history of severe depression that started approximately 2000 when his . He disclosed that he was doing better however somebody said that he cheated on his girlfriend when he didn't and she did not believe himself into the relationship. He states he began drinking, however has been about 5 weeks since he drank anything. Patient's exgirlfriend, Zoila 311 (F32.9) Unspecified Depressive Disorder Impression\\plan: Patient is recommended for IVC, he is demonstrating behavior indicating he has given up. Patient has not followed through with any recommendations however attempted to take some Celexa he had home but reported not working. Patient is not demonstrating any other will to get better and has not even show interest in self medicated with alcohol. At this time is believed the patient is a danger to himself. Patient lives alone and patient's ex-girlfriend has a no contact. At this time patient is recommended for inpatient treatment. Dr. Slaughter was consulted on the care and management of this patient; attending physician is in agreement with recommendations and disposition.
[2016-04-26] MEDS ORDERED: DIVALPROEX SODIUM 500 MG TAB.SR.24H PO SCH (13:00)
--- NOTE | 2016-04-26 20:47 | ER Document Report ---
Doctor's Note Notes: 04/26/16 20:46 Patient seen and evaluated at the bedside medically stable psychiatric medications been ordered he's been seen and evaluated today no active signs of withdrawal. He would like to talk to them tomorrow about taking something for sleep. Otherwise he has remained hemodynamically stable with no active withdrawal.
[2016-04-26] MEDS ORDERED: IBUPROFEN 600 MG TABLET PO ONE (21:47)
[2016-04-26] MEDS ORDERED: BUSPIRONE HCL 10 MG TABLET PO SCH (22:00)
[2016-04-27] MEDS ORDERED: DIAZEPAM 5 MG TABLET ONE (01:39)
[2016-04-27] MEDS ORDERED: DIAZEPAM 5 MG TABLET PO ONE (02:36)
--- NOTE | 2016-04-27 09:31 | ER Document Report ---
Doctor's Note Notes: 04/27/16 09:30 Patient seen and evaluated at the bedside. Medically stable. He took his psychiatric medications yesterday. Evaluated today with no active signs of withdrawal. No other complaints at this time. Awaiting psych recs. 04/27/16 14:55 Patient accepted to [facility] under the care of Dr. Schwarz. [employer] will transport.
[2016-04-27] MEDS ORDERED: NICOTINE 7 MG/24 HR PATCH.TD24 TD SCH (14:00)
--- NOTE | 2016-04-27 15:38 | PSYCHOLOGICAL NOTE ---
Psych Note - Psych Note Psych Note: Patient is a 45 year old male who presents via family/friend who dropped patient off and left. Patient reported upon arrival that he was experiencing SI with plan to use a knife. Note, patient has presented numerous times in the past with similar plan. Patient has a long history of SA, specifically alcohol and was discharged from Hospitalist's services just over a week ago at which time he was admitted to ETOH withdrawal. Please note, consultation request was ordered upon arrival; however, patient was not given a room for 2+ hours, thus the delay in evaluation. Patient states he has been sober, but unable to follow up with opt services and or AA, etc. Patient states he started taking Celexa, which was an older prescription from [place]. Patient states he did not fill any prescriptions he was discharged with last week. Patient states he does not think the Celexa is working, and is unable to report an expiration date , or dosage. Patient states he has no motivation to care for himself and just wants to starve himself to . Patient states his ex-girlfriend forced him to come. Discussed with him the use of the word, "force," as he came on his own free will, perhaps at her insistence, but none the less, voluntary. Patient states he did not want her to call the police to handcuff him. Patient states if he had a gun, he would shoot himself. Discussed with patient that during each episode he states he wants to use a knife to harm himself, but does not. Discussed that the patient presented and has not harmed himself, actually suggests that he is willing to help himself. Reevaluation Patient states that he did not sleep well until whatever medication he received around midnight. Patient is unable to verbalize current feelings because he states he "just woke up so cant tell if he feels better yet." Patient's exgirlfriend, Zoila . Clinician spoke with Zoila , she stated that she has known the patient for approximately for 7 years. She states that she has never seen his this bad. She is very concerned for his safety. She continued to disclose that while there are no longer dating there are still good friends. She confirms that the patient lives alone. 311 (G32.9) Unspecified Depressive Disorder Impression\\plan: Patient was accepted to [facility]; transportation will occur today. Dr. Slaughter was consulted on the care and management of this patient; attending physician is in agreement with recommendations and disposition.
[2016-04-27 15:53] VITALS: BP 134/89
== END 2016-04-27 15:57 ==
LOC: ER 15:40
DX: F32.9 Major depressive disorder, single episode, unspecified (principal); F41.9 Anxiety disorder, unspecified; R45.851 Suicidal ideations; F17.200 Nicotine dependence, unspecified, uncomplicated; I10 Essential (primary) hypertension; J44.9 Chronic obstructive pulmonary disease, unspecified; D72.829 Elevated white blood cell count, unspecified; R73.9 Hyperglycemia, unspecified
CPT/HCPCS: 93005; 99285; 36415; 80307 ×4; 85025; 80053; 81001; 93010; J3490

== ENCOUNTER 2016-05-21 17:48 | Emergency (ER) | payer OTHER ==
--- NOTE | 2016-05-21 19:12 | ER Document Report ---
ED Psych Disorder / Suicide - General Chief Complaint: Psych Problem Stated Complaint: SUICIDAL IDEATION Time seen by provider: 19:09 Mode of Arrival: Ambulatory Information source: Patient Notes: This is a 45-year-old man with a history of alcohol abuse, alcohol withdrawal seizures, major depression with psychotic features. Patient presents to the emergency room with depression and suicidal ideation. He was hospitalized for depression in [place] a few months back and recently ran out of some of his medicines. He states he never sought psychiatric follow-up in the outpatient setting. He is ex girlfriend whom he is been closed with is moving out of the area to [place] and is very upset over this. As far as his alcohol, he is not been drinking for the past several months. TRAVEL OUTSIDE OF THE [place] IN LAST 30 DAYS: No - HPI Patient complains to provider of: Suicidal ideation Onset: Last week Onset was: Gradual Quality of pain: No pain Severity: None Pain Level: Denies Suicide Risk Factors: Bipolar, Depressed, Lack of social support Situational problems related to: Significant other Suicide Attempt Method: denies: Drowning, Hanging, Motor Vehicle, Overdose, Shooting, Stabbing/Cutting, Train, Other Overdose of: No: Acetominophen, Alcohol, Anticholinergic, Anti-depressants, Benzodiazepine, Salicylate, Tricyclic Antidepressant, Other Injury to: No: Generalized, Abdomen, Ankle, Back, Breast, Buttocks, Chest, Elbow , Epigastric, Flank, Face, Finger, Foot, Hand, Head, Hip, Knee, Leg, Lower extremity, Mouth, Neck, Pelvic, Penis, Perineum, Rectum, Shoulder, Testicle, Thigh, Throat, Trunk, Upper extremity, Vagina, Wrist Normal mood: No Associated symptoms: Depressed Similar symptoms previously: Yes Recently seen / treated by doctor: No - Related Data Allergies/Adverse Reactions: No Known Allergies Allergy (Unverified 04/25/16 15:53) Past Medical History - General Information source: Patient - Social History Smoking Status: Never Smoker Cigarette use (# per day): No Chew tobacco use (# tins/day): No Frequency of alcohol use: no recent drinking: History of alcohol abuse Drug Abuse: None Lives with: Alone Family History: Reviewed & Not Pertinent Patient has suicidal ideation: Yes Patient has homicidal ideation: No - Past Medical History Cardiac Medical History: Reports: Hx Hypertension Denies: Hx Congestive Heart Failure, Hx DVT, Hx Heart Attack, Hx Hypercholesterolemia, Hx Pulmonary Embolism Pulmonary Medical History: Reports: Hx COPD Neurological Medical History: Reports: Hx Seizures - [place] secondary to alcohol withdrawal. Endocrine Medical History: Denies: Hx Diabetes Mellitus Type 1, Hx Diabetes Mellitus Type 2, Hx Hyperthyroidism, Hx Hypothyroidism Renal/ Medical History: Denies: Hx Peritoneal Dialysis GI Medical History: Denies: Hx Cirrhosis, Hx Hepatitis Musculoskeltal Medical History: Reports Hx Arthritis Skin Medical History: Denies Hx Eczema, Denies Hx Psoriasis Psychiatric Medical History: Reports: Hx Depression Infectious Medical History: Denies: Hx Hepatitis Past Surgical History: Reports: Hx Abdominal Surgery, Hx Orthopedic Surgery - left shoulder - Immunizations Hx Diphtheria, Pertussis, Tetanus Vaccination: Yes Review of Systems - Review of Systems Notes: Review of systems: Constitutional: Denies fever, chills. EENT: Denies ear pain, sinus tenderness, throat pain, throat swelling. Cardiovascular: Denies chest pain, palpitations, dyspnea or edema. Respiratory: Denies wheezing, cough, hemoptysis. Abdomen: Denies abdominal pain, nausea, vomiting, diarrhea. Denies BRBPR or melena. Genitourinary: Denies dysuria, pyuria, hematuria, flank pain. Musculoskeletal: denies joint pain or swelling, denies back pain. Neurologic: See H&P. Skin: Denies rash, lesions. Physical Exam - Vital signs Notes: Physical exam: GENERAL: 45-year-old male, alert and oriented 3, no acute distress HEAD: Atraumatic, normocephalic. EYES: Pupils equal round and reactive to light, extraocular movements intact, sclera anicteric, conjunctiva are normal. ENT: TMs normal, nares patent, oropharynx clear without exudates. Moist mucous membranes. NECK: Normal range of motion, supple without lymphadenopathy or JVD. LUNGS: Breath sounds clear to auscultation bilaterally and equal. No wheezes rales or rhonchi. HEART: Regular rate and rhythm without murmurs, rubs or gallops. ABDOMEN: Soft, normoactive bowel sounds. No tenderness to palpation. No guarding, no rebound. No masses appreciated. EXTREMITIES: Normal range of motion, no pitting or edema. No clubbing or cyanosis. NEUROLOGICAL: Cranial nerves II through XII grossly intact. Normal speech, normal gait. PSYCH: Depressed and tearful SKIN: Warm, Dry, normal turgor, no rashes or lesions noted. Course - Laboratory Result Diagrams: 05/21/16 19:35 05/21/16 19:35 Laboratory results interpreted by me: 05/21/16 05/21/16 19:35 19:35 WBC 11.5 H Carbon Dioxide 20 L Glucose 72 L Salicylates < 1.0 L Acetaminophen < 10 L - EKG Interpretation by Me Rate: Normal Rhythm: NSR - EKG shows normal sinus rhythm with a ventricular rate of 59, no acute ST-T wave changes Discharge - Discharge Clinical Impression: depression, suicidal ideation Condition: Stable Disposition: PSYCH HOSP/UNIT
[2016-05-21 19:48] LABS: APPEARANCE,URINE SLIGHTLY-CLOUDY; BILIRUBIN,URINE NEGATIVE (NEGATIVE); GLUCOSE, URINE NEGATIVE (NEGATIVE); KETONES,URINE NEGATIVE (NEGATIVE); LEUKOCYTE ESTERASE,URINE NEGATIVE (NEGATIVE); NITRITE,URINE NEGATIVE (NEGATIVE); PROTEIN,URINE NEGATIVE (NEGATIVE); URINE SPECIFIC GRAVITY 1.012; UROBILINOGEN,URINE NEGATIVE mg/dL (<2.0)
[2016-05-21 19:54] LABS: ABSOLUTE EOSINOPHILS # (AUTO) 0.3 10^3/uL (0.0-0.6); ABSOLUTE LYMPHOCYTES (AUTO) 3.1 10^3/uL (0.5-4.7); BASOPHILS % (AUTO) 0.3 % (0-2); EOSINOPHILS % (AUTO) 2.3 % (0-6); HEMATOCRIT 40.5 % (37.9-51.0); HEMOGLOBIN 14.1 g/dL (13.5-17.0); HGB HCT DIFFERENCE 1.8; LYMPHOCYTES % (AUTO) 27.3 % (13-45); MEAN CORPUSCULAR HEMOGLOBIN 32.1 pg (27.0-33.4); MEAN CORPUSCULAR HGB CONC 34.7 g/dL (32.0-36.0); MEAN CORPUSCULAR VOLUME 92 fl (80-97); MONOCYTES % (AUTO) 8.6 % (3-13); RED BLOOD COUNT 4.39 10^6/uL (4.35-5.55); SEGMENTED NEUTROPHILS % (AUTO) 61.5 % (42-78); WHITE BLOOD COUNT 11.5 10^3/uL (4.0-10.5)
[2016-05-21] MEDS ORDERED: CLONAZEPAM 1 MG TABLET PO PRN (20:00)
[2016-05-21 20:04] LABS: ALANINE AMINOTRANSFERASE 22 U/L (21-72); ALBUMIN 4.3 g/dL (3.5-5.0); ALKALINE PHOSPHATASE 65 U/L (38-126); ANION GAP 18 (5-19); ASPARTATE AMINO TRANSFERASE 18 U/L (17-59); BILIRUBIN,DIRECT 0.3 mg/dL (0.0-0.4); BILIRUBIN,TOTAL 0.5 mg/dL (0.2-1.3); BLOOD UREA NITROGEN 10 mg/dL (7-20); CALCIUM 9.4 mg/dL (8.4-10.2); CARBON DIOXIDE 20 mmol/L (22-30); CHLORIDE 105 mmol/L (98-107); CREATININE RESULT 0.73 mg/dL (0.52-1.25); GLUCOSE 72 mg/dL (75-110); POTASSIUM 4.9 mmol/L (3.6-5.0); SODIUM 142.6 mmol/L (137-145); TOTAL PROTEIN 7.5 g/dL (6.3-8.2)
[2016-05-21 20:05] LABS: ALCOHOL < 10 mg/dL (NONE DETECTED)
[2016-05-21 20:13] LABS: URINE BARBITURATES SCREEN NEGATIVE; URINE METHADONE SCREEN NEGATIVE; URINE OPIATES LOW NEGATIVE; URINE PHENCYCLIDINE SCREEN NEGATIVE
[2016-05-21] MEDS ORDERED: DIVALPROEX SODIUM 500 MG TAB.SR.24H PO ONE (20:30)
--- NOTE | 2016-05-21 20:50 | EKG REPORT ---
SEVERITY:- OTHERWISE NORMAL ECG - SINUS RHYTHM LOW VOLTAGE IN FRONTAL LEADS : Confirmed by: Yessica Richey 21-May-2016 20:48:52
[2016-05-21] MEDS ORDERED: DIVALPROEX SODIUM 500 MG TAB.SR.24H PO SCH (21:00)
[2016-05-21] MEDS ORDERED: BENZTROPINE MESYLATE 1 MG TABLET PO SCH (22:00)
[2016-05-21] MEDS ORDERED: HALOPERIDOL 5 MG TABLET PO SCH (22:00)
[2016-05-22 10:52] VITALS: BP 108/63
--- NOTE | 2016-05-22 10:55 | ER Document Report ---
ED Psych Disorder / Suicide - General Chief Complaint: Psych Problem Stated Complaint: SUICIDAL IDEATION Mode of Arrival: Ambulatory Information source: Patient, Relative, [facility] Records, Outside Facility Records - Discharge reports provided by pateint from [facility] (05/12/16) TRAVEL OUTSIDE OF THE U.S. IN LAST 30 DAYS: No - HPI Patient complains to provider of: Suicidal ideation Onset: Just prior to arrival Onset was: Sudden Suicide Risk Factors: Bipolar, Lack of social support, Male, Substance abuse - hx of ETOH Situational problems related to: Lost job, Significant other, Other - possibly homeless; financial probs Normal mood: Yes Associated symptoms: Normal affect, Normal mood, Depressed - patient reports Similar symptoms previously: Yes - recently d/c from inpatient psych (05/12) Recently seen / treated by doctor: No - pt did not follow up with [facility] per his d /c plan from inpatient Notes: Patient is a 45-year-old male who presented overnight via EMS with complaints of suicidal ideations. Patient is well known to this department in this clinician for numerous prior episodes of similar etiology. Patient was placed on involuntary commitment petition and held for further evaluation. Patient this morning provides incongruent accounts of occurrences over the past few days. Initially patient stated his mood has been "all over the place" because he ran out of all of his medications this past Sunday. Patient states he is financially unable to fill prescriptions and also states that he did not follow up with [facility] per his discharge plan of care dated May 12 from [facility]. Patient later disclosed that he is depressed because his ex-girlfriend with whom he lives is moving out and moving out of state to [place]. Patient notes this will leave him with nothing and no one in this area and he does not have the financial means to survive. A review of patient' s chart indicates he presented with numerous prescription pill bottles filled May 12 or May 14. Patient does have trazodone, some Depakote, and some Haldol. It is unclear what patient has has not ingested over the past few days. He does deny continued alcohol use and states he has been sober since prior to his last episode here in the department. Patient denies a plan for suicide and further denies wanting to by suicide. Patient presents with chronic social stressors which often exasperate his depression, per his reports from prior episodes as well as today. Patient's ex-girlfriend, Zoila states she is not quite sure what is going on , but states he has not been looking right, and unfortunately he has been told to leave where he has been living, has no food, and no money for medications. She states yesterday he asked her to pay for his Klonopin and Tramadol, but not the mood stabilizers. She states she refused top pay for the medications, but he called and said he was vomiting and had a seizure so she offered to call 911. She states he initially refused to come, but then called himself. She states he was solely complaining of physical symptoms and made no mention of increased depression or suicidal ideations. Patient is alert and oriented. Mood is euthymic with normal affect. Patient endorses suicidal ideations but is not considered to demonstrate intent. Patient denies homicidal ideations, intent, plan, means although states he has had thoughts of killing his ex-girlfriend because she has taken everything. Patient denies A/VH; delusions not noted. Thought processes were goal oriented towards remaining in the department. Conversational speech was WNL for this patient. Intellectual abilities were estimated within average range. Attention and focus were fair. Insight, judgment, impulse control were poor. Unspecified bipolar disorder per history Polysubstance use disorder, per history Patient is psychiatrically cleared and recommended for discharge and rescind IVC. Patient is recommended to walk to [facility] to initiate his outpatient follow-up treatment from his recent discharged from [facility]. Patient's overall presentation is more congruent with attempting to meet personal needs/secondary gain through the misuse and abuse of the emergency medical system and mental health systems. Patient has numerous and chronic social stressors which often factor into his frequent presentations. Patient denies wanting to by suicide. Patient has one support individuals he has agreed to meet him at [facility] and assist him with returning to [facility]. Patient is encouraged to also pursue social work nurse outreach via the homeless retirement and/or [facility]. Consulted with Dr. Slaughter in regards to the care and management of this patient. - Related Data Allergies/Adverse Reactions: No Known Allergies Allergy (Unverified 04/25/16 15:53) Home Medications: Current Home Medications Diphenhydramine HCl [Benadryl] 50 mg PO QHS 05/22/16 [History] Divalproex Sodium [Depakote] 750 mg PO TID 05/22/16 [History] Quetiapine Fumarate [Seroquel 100 mg Tablet] 200 mg PO QHS 05/22/16 [History] Quetiapine Fumarate [Seroquel] 25 mg PO BID 05/22/16 [History] Trazodone HCl [Desyrel] 300 mg PO QHS 05/22/16 [History] Past Medical History - General Information source: Patient - Social History Smoking Status: Current Every Day Smoker Cigarette use (# per day): No Chew tobacco use (# tins/day): No Frequency of alcohol use: no recent drinking: History of alcohol abuse Drug Abuse: None Lives with: Alone Family History: Reviewed & Not Pertinent Patient has suicidal ideation: Yes Patient has homicidal ideation: No - Past Medical History Cardiac Medical History: Reports: Hx Hypertension Denies: Hx Congestive Heart Failure, Hx DVT, Hx Heart Attack, Hx Hypercholesterolemia, Hx Pulmonary Embolism Pulmonary Medical History: Reports: Hx COPD Neurological Medical History: Reports: Hx Seizures - [place] secondary to alcohol withdrawal. Endocrine Medical History: Denies: Hx Diabetes Mellitus Type 1, Hx Diabetes Mellitus Type 2, Hx Hyperthyroidism, Hx Hypothyroidism Renal/ Medical History: Denies: Hx Peritoneal Dialysis GI Medical History: Denies: Hx Cirrhosis, Hx Hepatitis Musculoskeltal Medical History: Reports Hx Arthritis Skin Medical History: Denies Hx Eczema, Denies Hx Psoriasis Psychiatric Medical History: Reports: Hx Depression Infectious Medical History: Denies: Hx Hepatitis Past Surgical History: Reports: Hx Abdominal Surgery, Hx Orthopedic Surgery - left shoulder - Immunizations Hx Diphtheria, Pertussis, Tetanus Vaccination: Yes Physical Exam - Vital signs Vitals: Temp Pulse Resp BP Pulse Ox 98.5 F 81 16 105/67 98 05/21/16 21:13 05/21/16 21:13 05/21/16 21:13 05/21/16 21:13 05/21/16 21:13 Course - Vital Signs Vital signs: Temp Pulse Resp BP Pulse Ox 98.5 F 69 16 121/67 97 05/21/16 21:13 05/22/16 04:00 05/22/16 04:00 05/22/16 04:00 05/22/16 04:00 - Laboratory Result Diagrams: 05/21/16 19:35 05/21/16 19:35 Laboratory results interpreted by me: 05/21/16 05/21/16 19:35 19:35 WBC 11.5 H Carbon Dioxide 20 L Glucose 72 L Salicylates < 1.0 L Acetaminophen < 10 L Discharge - Discharge Clinical Impression: depression, suicidal ideation, Pancreatitis Condition: Good Disposition: HOME, SELF-CARE Instructions: Bipolar Disorder ([facility]), Pancreatitis ([facility]), Chronic Alcoholism ( [facility]), Depression (REPLACED BY [facility]) Additional Instructions: Please walk in present to [facility] to initiate her outpatient services/follow up. This was your noted discharge plan of care from [facility] 05/12/2016. You have numerous chronic social stressors which need to be addressed to assist you with your depressive symptoms. Please consider the homeless retirement in their social work nurse options. Please continue to abstain from alcohol and or any other substance abuse. Please return if her symptoms worsen.
--- NOTE | 2016-05-22 11:18 | ER Document Report ---
Doctor's Note Notes: 05/22/16 11:17 Rounds: Chart reviewed and patient interviewed. Vital signs are stable. All labs are essentially normal. Patient appears to be medically stable for transfer or discharge. Mental health has assessed the patient feels he can be discharged to follow-up at [facility] after leaving the emergency department. Yessenia Carrizales M.D.
== END 2016-05-22 11:19 | disposition home or self-care (01) ==
LOC: ER 17:48
DX: F32.9 Major depressive disorder, single episode, unspecified (principal); R45.851 Suicidal ideations; K85.90 Acute pancreatitis without necrosis or infection, unspecified; I10 Essential (primary) hypertension; J44.9 Chronic obstructive pulmonary disease, unspecified; F31.9 Bipolar disorder, unspecified; F19.10 Other psychoactive substance abuse, uncomplicated; F17.200 Nicotine dependence, unspecified, uncomplicated
CPT/HCPCS: 36415; 80053; 80307; 81001; 85025; 93005; 93010; 99284

== ENCOUNTER 2016-06-26 12:19 | Emergency (ER) | payer SELFPAY ==
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
[2016-06-26] MEDS ORDERED: LORAZEPAM 1 MG TABLET PO ONE ×2 (13:05→17:29)
[2016-06-26] MEDS ORDERED: NORMAL SALINE 1000 ML 1,000 ML IV ONE (13:18)
[2016-06-26 14:03] LABS: APPEARANCE,URINE CLEAR; BILIRUBIN,URINE NEGATIVE (NEGATIVE); GLUCOSE, URINE NEGATIVE (NEGATIVE); KETONES,URINE TRACE mg/dL (NEGATIVE); LEUKOCYTE ESTERASE,URINE NEGATIVE (NEGATIVE); NITRITE,URINE NEGATIVE (NEGATIVE); PROTEIN,URINE 30 mg/dL (NEGATIVE); URINE SPECIFIC GRAVITY 1.008; UROBILINOGEN,URINE NEGATIVE mg/dL (<2.0)
[2016-06-26 14:13] LABS: ABSOLUTE BASOPHILS # (AUTO) 0.1 10^3/uL (0.0-0.2); ABSOLUTE LYMPHOCYTES (AUTO) 2.9 10^3/uL (0.5-4.7); ABSOLUTE MONOCYTES (AUTO) 0.6 10^3/uL (0.1-1.4); ABSOLUTE NEUT (AUTO) 4.3 10^3/uL (1.7-8.2); BASOPHILS % (AUTO) 0.7 % (0-2); EOSINOPHILS % (AUTO) 0.1 % (0-6); HEMATOCRIT 49.2 % (37.9-51.0); HEMOGLOBIN 16.6 g/dL (13.5-17.0); HGB HCT DIFFERENCE 0.6; LYMPHOCYTES % (AUTO) 36.8 % (13-45); MEAN CORPUSCULAR HEMOGLOBIN 31.9 pg (27.0-33.4); MEAN CORPUSCULAR HGB CONC 33.8 g/dL (32.0-36.0); MEAN CORPUSCULAR VOLUME 95 fl (80-97); MONOCYTES % (AUTO) 8.1 % (3-13); RED BLOOD COUNT 5.21 10^6/uL (4.35-5.55); RED CELL DISTRIBUTION WIDTH 15.3 % (11.5-14.0); SEGMENTED NEUTROPHILS % (AUTO) 54.3 % (42-78)
[2016-06-26 14:29] LABS: URINE BARBITURATES SCREEN NEGATIVE; URINE METHADONE SCREEN NEGATIVE; URINE OPIATES LOW NEGATIVE; URINE PHENCYCLIDINE SCREEN NEGATIVE
[2016-06-26] MEDS ORDERED: MAGNESIUM OXIDE 400 MG TABLET PO ONE (14:30)
[2016-06-26] MEDS ORDERED: MULTIVITAMIN TABLET PO ONE (14:30)
[2016-06-26] MEDS ORDERED: FOLIC ACID 1 MG TABLET PO ONE (14:30)
[2016-06-26 14:39] LABS: ALANINE AMINOTRANSFERASE 35 U/L (21-72); ALBUMIN 4.4 g/dL (3.5-5.0); ALCOHOL 206 mg/dL (NONE DETECTED); ALKALINE PHOSPHATASE 102 U/L (38-126); ANION GAP 17 (5-19); ASPARTATE AMINO TRANSFERASE 39 U/L (17-59); BILIRUBIN,DIRECT 0.5 mg/dL (0.0-0.4); BILIRUBIN,TOTAL 0.7 mg/dL (0.2-1.3); BLOOD UREA NITROGEN 9 mg/dL (7-20); CALCIUM 9.2 mg/dL (8.4-10.2); CARBON DIOXIDE 22 mmol/L (22-30); CHLORIDE 104 mmol/L (98-107); CREATININE RESULT 0.69 mg/dL (0.52-1.25); GLUCOSE 79 mg/dL (75-110); POTASSIUM 4.5 mmol/L (3.6-5.0); SODIUM 143.4 mmol/L (137-145); TOTAL PROTEIN 8.2 g/dL (6.3-8.2)
[2016-06-26] MEDS ORDERED: THIAMINE HCL 100 MG TABLET PO ONE (15:00)
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
[2016-06-26] MEDS ORDERED: LORAZEPAM 1 MG TABLET (TAPER DOSING) PO SCH (19:00)
[2016-06-26] MEDS ORDERED: ONDANSETRON HCL INJ/PF 4 MG/2 ML SDV IV ONE (19:47)
--- NOTE | 2016-06-26 20:36 | EKG REPORT ---
SEVERITY:- ABNORMAL ECG - SINUS RHYTHM PROBABLE LEFT ATRIAL ABNORMALITY PROBABLE INFERIOR INFARCT, OLD BORDERLINE T ABNORMALITIES, ANT-LAT LEADS : Confirmed by: Yessica Richey 26-Jun-2016 20:35:22
[2016-06-26 21:39] VITALS: BP 136/82
[2016-06-27] MEDS ORDERED: THIAMINE HCL 100 MG TABLET PO SCH (10:00)
[2016-06-27] MEDS ORDERED: MAGNESIUM OXIDE 400 MG TABLET PO SCH (10:00)
[2016-06-27] MEDS ORDERED: FOLIC ACID 1 MG TABLET PO SCH (10:00)
[2016-06-27] MEDS ORDERED: MULTIVITAMIN TABLET PO SCH (10:00)
== END 2016-06-26 21:41 | disposition home or self-care (01) ==
LOC: ER 12:19
DX: F10.20 Alcohol dependence, uncomplicated (principal); Y90.7 Blood alcohol level of 200-239 mg/100 ml; F31.61 Bipolar disorder, current episode mixed, mild; Z91.14 Patient's other noncompliance with medication regimen; F17.220 Nicotine dependence, chewing tobacco, uncomplicated; I10 Essential (primary) hypertension; J44.9 Chronic obstructive pulmonary disease, unspecified
CPT/HCPCS: 93005; 99285; 96374; 36415; 80307 ×4; 85025; 80053; 81001; 93010; J2405

== ENCOUNTER 2016-07-25 12:05 | Emergency (ER) | payer SELFPAY ==
[2016-07-25] MEDS ORDERED: LORAZEPAM INJ 2 MG/1 ML VIAL IV ONE (12:39)
[2016-07-25] MEDS ORDERED: NORMAL SALINE 1000 ML 1,000 ML with POTASSIUM CHLORIDE 20 MEQ, MAGNESIUM SULFATE 8 MEQ,... IV ONE ×5 (12:40)
--- NOTE | 2016-07-25 12:41 | ER Document Report ---
ED Medical Screen (RME) - General Chief Complaint: Alcohol Withdrawl Stated Complaint: ALCOHOL WITHDRAWAL Time Seen by Provider: 07/25/16 12:31 Mode of Arrival: Ambulatory Information source: Patient Notes: This is a 45-year-old male with a history of chronic alcohol abuse who presents with alcohol withdrawal. He states that he would like help with detox. Of note he has a prior history of alcohol withdrawal no prior history of DT's, requiring multiple prior ICU admissions. His last drink was sometime last night. He admits to drinking up to 1/2 gallon of vodka per day along with beer. Today he states he feels shaky and has had nausea and vomiting. He denies any thoughts of hurting himself or others. He states he would like help with his alcohol problem. I have greeted and performed a rapid initial assessment of this patient. A comprehensive ED assessment and evaluation of the patient, analysis of test results and completion of the medical decision making process will be conducted by additional ED providers. TRAVEL OUTSIDE OF THE [place] IN LAST 30 DAYS: No - Related Data Allergies/Adverse Reactions: No Known Allergies Allergy (Verified 07/25/16 12:19) Past Medical History - Past Medical History Cardiac Medical History: Reports: Hx Hypertension Denies: Hx Congestive Heart Failure, Hx DVT, Hx Heart Attack, Hx Hypercholesterolemia, Hx Pulmonary Embolism Pulmonary Medical History: Reports: Hx COPD Neurological Medical History: Reports: Hx Seizures - [place] secondary to alcohol withdrawal. Endocrine Medical History: Denies: Hx Diabetes Mellitus Type 1, Hx Diabetes Mellitus Type 2, Hx Hyperthyroidism, Hx Hypothyroidism Renal/ Medical History: Denies: Hx Peritoneal Dialysis GI Medical History: Denies: Hx Cirrhosis, Hx Hepatitis Musculoskeltal Medical History: Reports Hx Arthritis Skin Medical History: Denies Hx Eczema, Denies Hx Psoriasis Psychiatric Medical History: Reports: Hx Depression Infectious Medical History: Denies: Hx Hepatitis Past Surgical History: Reports: Hx Abdominal Surgery, Hx Orthopedic Surgery - left shoulder - Immunizations Hx Diphtheria, Pertussis, Tetanus Vaccination: Yes Physical Exam - Vital signs Vitals: Temp Pulse Resp BP Pulse Ox 98.0 F 78 18 143/93 H 100 07/25/16 12:15 07/25/16 12:15 07/25/16 12:15 07/25/16 12:15 07/25/16 12:15 Course - Vital Signs Vital signs: Temp Pulse Resp BP Pulse Ox 98.0 F 78 18 143/93 H 100 07/25/16 12:15 07/25/16 12:15 07/25/16 12:15 07/25/16 12:15 07/25/16 12:15
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
[2016-07-25 15:11] VITALS: BP 148/83
--- NOTE | 2016-07-25 22:49 | EKG REPORT ---
SEVERITY:- BORDERLINE ECG - SINUS RHYTHM EARLY REPOLARIZATION CHANGES VS ACUTE PERICARDITIS LOW VOLTAGE IN FRONTAL LEADS BORDERLINE T ABNORMALITIES, ANT-LAT LEADS : Confirmed by: Yessica Richey 25-Jul-2016 22:48:37
== END 2016-07-25 15:12 | disposition home or self-care (01) ==
LOC: ER 12:05
DX: F10.10 Alcohol abuse, uncomplicated (principal); F17.200 Nicotine dependence, unspecified, uncomplicated; I10 Essential (primary) hypertension; J44.9 Chronic obstructive pulmonary disease, unspecified; Z86.718 Personal history of other venous thrombosis and embolism
CPT/HCPCS: 93005; 99285; 96375; 96365; 93010; J3475; J2060; J3480; J3411; J7030; J3490

== ENCOUNTER 2016-08-20 11:36 | Emergency (ER) | payer SELFPAY ==
[2016-08-20] MEDS ORDERED: LORAZEPAM INJ 2 MG/1 ML VIAL IV ONE (11:40)
[2016-08-20] MEDS ORDERED: THIAMINE HCL 100 MG in NORMAL SALINE 50 ML IV ONE (11:41)
[2016-08-20] MEDS ORDERED: NORMAL SALINE 1000 ML 1,000 ML IV PRN ×2 (11:42→13:30)
--- NOTE | 2016-08-20 11:46 | ER Document Report ---
ED General - General Stated Complaint: SUICIDAL IDEATION Time Seen by Provider: 08/20/16 11:40 Mode of Arrival: Medic Information source: Emergency Med Personnel Notes: The chair in the room and appears quite good. Final this is a 45-year-old man with a history of alcohol abuse, alcohol withdrawal seizures, major depression with psychotic features. The patient is brought in by EMS because of suicidal ideations in the setting of alcohol intoxication. Patient with absence type seizure on presentation to the ER. TRAVEL OUTSIDE OF THE [place] IN LAST 30 DAYS: No - HPI Onset: Last week Onset/Duration: Gradual Quality of pain: No pain Severity: None Pain Level: Denies Associated symptoms: denies: Chest pain, Fever, Shortness of breath Exacerbated by: Denies Relieved by: Denies Similar symptoms previously: Yes Recently seen / treated by doctor: Yes - Related Data Allergies/Adverse Reactions: No Known Allergies Allergy (Verified 07/25/16 12:19) Past Medical History - General Information source: Patient - Social History Smoking Status: Current Every Day Smoker Cigarette use (# per day): No Chew tobacco use (# tins/day): Yes - There Frequency of alcohol use: Heavy Drug Abuse: None Lives with: Alone Family History: Reviewed & Not Pertinent Patient has suicidal ideation: Yes Patient has homicidal ideation: No - Past Medical History Cardiac Medical History: Reports: Hx Hypertension Denies: Hx Congestive Heart Failure, Hx DVT, Hx Heart Attack, Hx Hypercholesterolemia, Hx Pulmonary Embolism Pulmonary Medical History: Reports: Hx COPD Neurological Medical History: Reports: Hx Seizures - [place] secondary to alcohol withdrawal. Endocrine Medical History: Denies: Hx Diabetes Mellitus Type 1, Hx Diabetes Mellitus Type 2, Hx Hyperthyroidism, Hx Hypothyroidism Renal/ Medical History: Reports: None. Denies: Hx Peritoneal Dialysis Malignancy Medical History: Reports None GI Medical History: Denies: Hx Cirrhosis, Hx Hepatitis Musculoskeltal Medical History: Reports Hx Arthritis Skin Medical History: Denies Hx Eczema, Denies Hx Psoriasis Psychiatric Medical History: Reports: Hx Depression Infectious Medical History: Denies: Hx Hepatitis Past Surgical History: Reports: Hx Abdominal Surgery, Hx Orthopedic Surgery - left shoulder - Immunizations Hx Diphtheria, Pertussis, Tetanus Vaccination: Yes Review of Systems - Review of Systems Constitutional: denies: Chills, Fever EENT: No symptoms reported Cardiovascular: No symptoms reported Respiratory: No symptoms reported Gastrointestinal: No symptoms reported Genitourinary: No symptoms reported Male Genitourinary: No symptoms reported Musculoskeletal: No symptoms reported Skin: No symptoms reported Hematologic/Lymphatic: No symptoms reported Neurological/Psychological: See HPI Physical Exam - Vital signs Vitals: Temp Pulse Resp BP Pulse Ox 97.6 F 85 12 149/99 H 96 08/20/16 11:44 08/20/16 11:44 08/20/16 11:44 08/20/16 11:44 08/20/16 11:44 Notes: Physical exam: GENERAL: Eyes open, HEAD: Atraumatic, normocephalic. EYES: Pupils equal round and reactive to light, extraocular movements intact, sclera anicteric, conjunctiva are normal. ENT: TMs normal, nares patent, oropharynx clear without exudates. Moist mucous membranes. NECK: Normal range of motion, supple without lymphadenopathy or JVD. LUNGS: Breath sounds clear to auscultation bilaterally and equal. No wheezes rales or rhonchi. HEART: Regular rate and rhythm without murmurs, rubs or gallops. ABDOMEN: Soft, normoactive bowel sounds. No tenderness to palpation. No guarding, no rebound. No masses appreciated. EXTREMITIES: Normal range of motion, no pitting or edema. No clubbing or cyanosis. NEUROLOGICAL: Cranial nerves II through XII grossly intact. Normal speech, normal gait. PSYCH: Normal mood, normal affect. SKIN: Warm, Dry, normal turgor, no rashes or lesions noted. 45-year-old man, Course - Re-evaluation Re-evalutation: 08/20/16 19:16 I had a conversation with the patient: He is very depressed and is suicidal at this time. Based upon our conversation, I have made the patient an involuntary commitment so he can be further observed overnight and evaluated by psychiatry in the morning. I have discussed this with Dr. Slaughter who will see the patient in the morning. Time, I have written a as needed order for Ativan to protect against any alcohol withdrawal seizures. - Vital Signs Vital signs: Temp Pulse Resp BP Pulse Ox 97.6 F 85 16 139/94 H 94 08/20/16 11:44 08/20/16 11:44 08/20/16 16:01 08/20/16 16:01 08/20/16 16:01 - Laboratory Result Diagrams: 08/20/16 12:05 08/20/16 12:05 Laboratory results interpreted by me: 08/20/16 08/20/16 12:05 12:05 RDW 14.5 H Seg Neutrophils % 38.5 L Lymphocytes % 50.3 H Chloride 108 H Salicylates < 1.0 L Acetaminophen < 10 L Serum Alcohol 348 H* - Diagnostic Test Radiology reviewed: Image reviewed, Reports reviewed - X-ray shows no infiltrates or effusions - EKG Interpretation by Me Rate: Normal Rhythm: NSR - EKG shows normal sinus rhythm with a ventricular rate of 69, no acute ST-T wave changes. Discharge - Discharge Clinical Impression: Alcohol abuse/dependence, Depression, suicidal ideations Condition: Stable Disposition: PSYCH HOSP/UNIT
--- NOTE | 2016-08-20 12:13 | RADIOLOGY REPORT (SQ) ---
EXAM DESCRIPTION: CHEST SINGLE VIEW COMPLETED DATE/TIME: 08/20/2016 12:03 pm REASON FOR STUDY: sob COMPARISON: March 2016 EXAM PARAMETERS: NUMBER OF VIEWS: One view. TECHNIQUE: Single frontal radiographic view of the chest acquired. RADIATION DOSE: NA LIMITATIONS: None. FINDINGS: LUNGS AND PLEURA: No opacities, masses or pneumothorax. No pleural effusion. MEDIASTINUM AND HILAR STRUCTURES: No masses. Contour normal. HEART AND VASCULAR STRUCTURES: Heart normal in size. Normal vasculature. BONES: No acute findings. HARDWARE: None in the chest. OTHER: No other significant finding. IMPRESSION: NO ACUTE RADIOGRAPHIC FINDING IN THE CHEST. TECHNICAL DOCUMENTATION: JOB ID: [id number]
[2016-08-20 12:30] LABS: PROTHROMBIN TIME 13.8 SEC (11.4-15.4)
[2016-08-20 12:31] LABS: ABSOLUTE EOSINOPHILS # (AUTO) 0.1 10^3/uL (0.0-0.6); ABSOLUTE LYMPHOCYTES (AUTO) 2.2 10^3/uL (0.5-4.7); ABSOLUTE MONOCYTES (AUTO) 0.4 10^3/uL (0.1-1.4); ABSOLUTE NEUT (AUTO) 1.7 10^3/uL (1.7-8.2); BASOPHILS % (AUTO) 0.7 % (0-2); EOSINOPHILS % (AUTO) 1.2 % (0-6); HEMATOCRIT 50.9 % (37.9-51.0); HEMOGLOBIN 16.8 g/dL (13.5-17.0); HGB HCT DIFFERENCE -0.5; LYMPHOCYTES % (AUTO) 50.3 % (13-45); MEAN CORPUSCULAR HEMOGLOBIN 31.8 pg (27.0-33.4); MEAN CORPUSCULAR VOLUME 96 fl (80-97); MONOCYTES % (AUTO) 9.3 % (3-13); RED BLOOD COUNT 5.28 10^6/uL (4.35-5.55); RED CELL DISTRIBUTION WIDTH 14.5 % (11.5-14.0); SEGMENTED NEUTROPHILS % (AUTO) 38.5 % (42-78); WHITE BLOOD COUNT 4.4 10^3/uL (4.0-10.5)
[2016-08-20 12:43] LABS: ALANINE AMINOTRANSFERASE 32 U/L (21-72); ALBUMIN 4.5 g/dL (3.5-5.0); ALKALINE PHOSPHATASE 78 U/L (38-126); ANION GAP 14 (5-19); ASPARTATE AMINO TRANSFERASE 32 U/L (17-59); BILIRUBIN,DIRECT 0.3 mg/dL (0.0-0.4); BILIRUBIN,TOTAL 0.4 mg/dL (0.2-1.3); BLOOD UREA NITROGEN 8 mg/dL (7-20); CALCIUM 8.9 mg/dL (8.4-10.2); CARBON DIOXIDE 22 mmol/L (22-30); CHLORIDE 108 mmol/L (98-107); CREATININE RESULT 0.66 mg/dL (0.52-1.25); GLUCOSE 91 mg/dL (75-110); MAGNESIUM 2.1 mg/dL (1.6-2.3); POTASSIUM 4.7 mmol/L (3.6-5.0); SODIUM 143.6 mmol/L (137-145); TOTAL PROTEIN 7.7 g/dL (6.3-8.2)
[2016-08-20 12:52] LABS: ALCOHOL 348 mg/dL (NONE DETECTED)
[2016-08-20] MEDS: LORAZEPAM 1 MG TABLET PO PRN ×4 (16:06→22:45)
--- NOTE | 2016-08-20 18:04 | EKG REPORT ---
SEVERITY:- ABNORMAL ECG - SINUS RHYTHM PROBABLE INFERIOR INFARCT, OLD MINIMAL ST ELEVATION, ANTEROLATERAL LEADS : Confirmed by: Jose Aguirre MD 20-Aug-2016 18:02:49
[2016-08-20] MEDS ORDERED: ONDANSETRON 4 MG TAB.RAPDIS ONE (21:56)
[2016-08-21] MEDS: LORAZEPAM 1 MG TABLET PO PRN ×4 (01:10→08:35)
[2016-08-21] MEDS ORDERED: ACETAMINOPHEN 100 ML IV ONE (08:49)
--- NOTE | 2016-08-21 09:37 | ER Document Report ---
Doctor's Note Notes: 08/21/16 11:09 As the rounding physician for our psychiatric patients, I have reviewed the chart, vitals, lab work. Patient has been examined and noted to be stable , patient evaluated my mental health and stable for discharge to go straight ot detox.
--- NOTE | 2016-08-21 11:05 | ER Document Report ---
ED Psych Disorder / Suicide - General Chief Complaint: Psych Problem Stated Complaint: SUICIDAL IDEATION, Alcohol Intoxication Time Seen by Provider: 08/20/16 11:40 Mode of Arrival: Medic Information source: Patient, [facility] Records TRAVEL OUTSIDE OF THE [place] IN LAST 30 DAYS: No - HPI Patient complains to provider of: Hallucinating, Suicidal ideation, Other - Alcohol withdraw Suicide Risk Factors: Age >65, Depressed, Male, Substance abuse Situational problems related to: Work - is hard Normal mood: No Associated symptoms: Anxious, Irritable Similar symptoms previously: Yes Recently seen / treated by doctor: Yes Notes: Patient is a 45 year old male who presented to the ED late last evening for alcohol intoxication and SI. His Serum Alcohol Level upon arrival to the ED was 348. Attending nurse reported he told her he needs medication because he is hallucinating. Patient was vomiting when this clinician went to conduct evaluation so provided him some time. He stated he is hallucinating and mentioned seeing a mouse, spider, and snake. He stated he is "frustrated, his (2000), his ex-girlfriend took him for all he was worth, he has a hard job, he is so tired, and feels like he cannot bounce back." He reported interest in obtaining detox. He identified he drinks a half gallon of vodka and four 40 ounce beers a day for longer than the past 6 months. He stated he had been in the ICU in Spring time due to alcohol withdraw, they induced a coma, which he was under for 10 days. He reported having seizures in the past as a result of withdraw and commented on "the shakes." He reported he tried to harm himself when his in 2000. He denied current outpatient services. Review of chart indicated patient has been seen in the ED since 2014 for alcohol related issues and had pancreatitis. On 06/16/2016 patient was seen by the [facility] team for similar etiology. At that time is was confirmed he had been to [facility] 05/22/2016 for an initial appointment, missed 2 appointments after that, and never returned. Patient was discharged from this visit to follow up with [facility]. Patient was alert and oriented. Mood was depressed with congruent affect (note he is likely starting withdraw). He denied current SI/HI and stated he is just frustrated. He did not appear to be responding to internal stimuli AEB fair eye contact, answering questions appropriately when addressed, and carrying on dialogue conversation. Thought processes were linear. Conversational speech was WNL for rate, tone and prosody. Intellectual abilities are estimated to be average. Insight, judgment and impulse control are fair AEB recognition he needs detox. Attempted to contact patient's ex-girlfriend, Zoila ([phone]). There was no answer and no voice mail box set up. Diagnosis: 303.90 (F10.20) Alcohol Use Disorder, Severe Impression/Plan: Recommendation to rescind IVC. Patient does not meet [place] criteria for IVC. He denied current SI/HI, admitted to being frustrated, stated he would like detox, and there was no observed psychosis. The [facility] team contacted [facility] to provide demographic information. Patient instructed to call them as soon as he has discharged. Patient provided with outpatient resource list, with emphasis on both [facility] numbers, specifically [facility]. Consulted with Dr. Slaughter regarding the management and care of patient. - Related Data Allergies/Adverse Reactions: No Known Allergies Allergy (Verified 07/25/16 12:19) Past Medical History - General Information source: Patient - Social History Smoking Status: Current Every Day Smoker Cigarette use (# per day): No Chew tobacco use (# tins/day): Yes - There Frequency of alcohol use: Heavy Drug Abuse: None Lives with: Alone Family History: Reviewed & Not Pertinent Patient has suicidal ideation: Yes Patient has homicidal ideation: No - Past Medical History Cardiac Medical History: Reports: Hx Hypertension Denies: Hx Congestive Heart Failure, Hx DVT, Hx Heart Attack, Hx Hypercholesterolemia, Hx Pulmonary Embolism Pulmonary Medical History: Reports: Hx COPD Neurological Medical History: Reports: Hx Seizures - [place] secondary to alcohol withdrawal. Endocrine Medical History: Denies: Hx Diabetes Mellitus Type 1, Hx Diabetes Mellitus Type 2, Hx Hyperthyroidism, Hx Hypothyroidism Renal/ Medical History: Reports: None. Denies: Hx Peritoneal Dialysis Malignancy Medical History: Reports None GI Medical History: Denies: Hx Cirrhosis, Hx Hepatitis Musculoskeltal Medical History: Reports Hx Arthritis Skin Medical History: Denies Hx Eczema, Denies Hx Psoriasis Psychiatric Medical History: Reports: Hx Depression Infectious Medical History: Denies: Hx Hepatitis Past Surgical History: Reports: Hx Abdominal Surgery, Hx Orthopedic Surgery - left shoulder - Immunizations Hx Diphtheria, Pertussis, Tetanus Vaccination: Yes Physical Exam - Vital signs Vitals: Temp Pulse Resp BP Pulse Ox 97.6 F 85 12 149/99 H 96 08/20/16 11:44 08/20/16 11:44 08/20/16 11:44 08/20/16 11:44 08/20/16 11:44 Course - Vital Signs Vital signs: Temp Pulse Resp BP Pulse Ox 97.6 F 73 18 144/76 H 96 08/20/16 11:44 08/21/16 05:45 08/21/16 05:45 08/21/16 05:45 08/21/16 05:45 - Laboratory Result Diagrams: 08/20/16 12:05 08/20/16 12:05 Laboratory results interpreted by me: 08/20/16 08/20/16 12:05 12:05 RDW 14.5 H Seg Neutrophils % 38.5 L Lymphocytes % 50.3 H Chloride 108 H Salicylates < 1.0 L Acetaminophen < 10 L Serum Alcohol 348 H* Discharge - Discharge Clinical Impression: Alcohol abuse/dependence, Depression, suicidal ideations Condition: Stable Disposition: HOME, SELF-CARE Additional Instructions: CHRONIC ALCOHOLISM and ALCOHOL ABUSE: Your evaluation reveals evidence of chronic alcoholism, an addiction to alcohol. The tendency to alcoholism may be inherited. Chronic use of alcohol weakens muscles, causes fatty deposits in the liver , damages the stomach, makes you more prone to infections, and can cause defects in unborn children. In the long run, brain atrophy and cirrhosis of the liver result. You are also at greater risk for certain types of cancer, such as cancer of the mouth, throat, stomach, and liver. Counselling services are available to help you. In-hospital treatment programs often help. Support groups such as Alcoholics Anonymous can be very useful in beating this addiction. Your physician can make a referral for you. As alcoholics often are prone to other addictions, you should discuss your use of any other medications with the doctor. ALCOHOL WITHDRAWAL: Your symptoms are caused by alcohol withdrawal. After a period of frequent drinking, the brain and body are changed by the alcohol. When you quit or reduce your drinking, the nervous system becomes unstable. Withdrawal symptoms can start a few hours after your last drink, but sometimes don't begin until a couple of days later. Symptoms can include shakiness, sweating, insomnia, nausea , vomiting, fearfulness, hallucinations, and seizures. In addition to the acute effects of alcohol withdrawal, we often have to deal with the medical effects of alcoholism. These problems often include dehydration, stomach irritation, intestinal bleeding, low blood sugar, liver disease, and pancreas inflammation. Treatment for alcohol withdrawal includes mild sedatives, vitamins, and fluids. You need to be with someone who can help if symptoms become severe. Many patients can withdraw at home. Admission to the hospital or a detox facility may be necessary if withdrawal symptoms are severe and uncontrollable. Abstaining from alcohol is the only effective long-term treatment. If you start drinking again, you will not be able to control yourself after the first drink. Treatment programs are available. In addition, many alcoholics benefit from Alcoholics Anonymous or other support groups available through your counselor or buddhism spinning bath patroller. [employer] and [facility] are support groups for friends and family members of an alcoholic. Go to the emergency room if you develop persistent vomiting, severe abdominal pain, fever, shortness of breath, hallucinations, uncontrollable tremors, or seizures. Suicidal ideation is a common medical term for thoughts about suicide, which may be as detailed as a formulated plan, without the suicidal act itself. Although most people who undergo suicidal ideation do not commit suicide, some go on to make suicide attempts. The range of suicidal ideation varies greatly from fleeting to detailed planning, role playing, and unsuccessful attempts. While thoughts about suicide are common, most people do not carry out serious actions to commit suicide. If you have thoughts again or they persist please contact mobile crisis or return to the emergency department. You should call [facility] ([facility]) so they can assist with alcohol detox placement. They have been notified and provided with your demographic information. Referrals: [facility] [Provider Group] - 08/21/16 12:00 pm
[2016-08-21 11:29] VITALS: BP 136/83
== END 2016-08-21 11:40 | disposition home or self-care (01) ==
LOC: ER 11:36
DX: F10.229 Alcohol dependence with intoxication, unspecified (principal); F32.9 Major depressive disorder, single episode, unspecified; R45.851 Suicidal ideations; R56.9 Unspecified convulsions; I10 Essential (primary) hypertension; J44.9 Chronic obstructive pulmonary disease, unspecified; F17.200 Nicotine dependence, unspecified, uncomplicated
CPT/HCPCS: 93005; 99284; 96361; 96374; 36415; 80307 ×3; 83735; 85025; 85610; 80053; 71010; 93010; S0119; J3411; J7030; J0131

== ENCOUNTER 2016-08-22 00:14 | Emergency (ER) | payer SELFPAY ==
--- NOTE | 2016-08-22 00:41 | ER Document Report ---
ED Psych Disorder / Suicide - General Chief Complaint: Psych Problem Stated Complaint: IVC WITH PAPERS Time Seen by Provider: 08/22/16 00:28 Notes: Patient is a 45-year-old male, past medical history chronic alcoholism, presents on an IVC after he called the police because he wanted to kill himself with a machete. When the ad operations associate arrived to his house, he had a dirty machete at his neck and was threatening to cut himself. Patient said that he was hearing voices that were telling him to do this. He was seen in the emergency room 2 days ago and was discharged with outpatient follow-up at [facility]. Patient denies neck pain, chest pain, shortness of breath, nausea, vomiting, homicidal ideation or rash. TRAVEL OUTSIDE OF THE [place] IN LAST 30 DAYS: No - Related Data Allergies/Adverse Reactions: No Known Allergies Allergy (Verified 07/25/16 12:19) Past Medical History - General Information source: Patient - Social History Smoking Status: Current Every Day Smoker Frequency of alcohol use: Heavy Drug Abuse: None Family History: Reviewed & Not Pertinent - Past Medical History Cardiac Medical History: Reports: Hx Hypertension Denies: Hx Congestive Heart Failure, Hx DVT, Hx Heart Attack, Hx Hypercholesterolemia, Hx Pulmonary Embolism Pulmonary Medical History: Reports: Hx COPD Neurological Medical History: Reports: Hx Seizures - [place] secondary to alcohol withdrawal. Endocrine Medical History: Denies: Hx Diabetes Mellitus Type 1, Hx Diabetes Mellitus Type 2, Hx Hyperthyroidism, Hx Hypothyroidism Renal/ Medical History: Denies: Hx Peritoneal Dialysis GI Medical History: Denies: Hx Cirrhosis, Hx Hepatitis Musculoskeltal Medical History: Reports Hx Arthritis Skin Medical History: Denies Hx Eczema, Denies Hx Psoriasis Psychiatric Medical History: Reports: Hx Depression Infectious Medical History: Denies: Hx Hepatitis Past Surgical History: Reports: Hx Abdominal Surgery, Hx Orthopedic Surgery - left shoulder - Immunizations Hx Diphtheria, Pertussis, Tetanus Vaccination: Yes Review of Systems - Review of Systems Notes: REVIEW OF SYSTEMS: CONSTITUTIONAL: -fevers, -chills EENT: -eye pain, -difficulty swallowing, -nasal congestion CARDIOVASCULAR:-chest pain, -syncope. RESPIRATORY: -cough, -SOB GASTROINTESTINAL: -abdominal pain, - nausea, -vomiting, -diarrhea GENITOURINARY: -dysuria, -hematuria MUSCULOSKELETAL: -back pain, -neck pain SKIN: -rash or skin lesions. HEMATOLOGIC: -easy bruising or bleeding. LYMPHATIC: -swollen, enlarged glands. NEUROLOGICAL: -altered mental status or loss of consciousness, -headache, - neurologic symptoms PSYCHIATRIC: -anxiety, +depression, +suicidal actions ALL OTHER SYSTEMS REVIEWED AND NEGATIVE. Physical Exam - Vital signs Vitals: Temp Pulse Resp BP Pulse Ox 98.1 F 80 20 140/77 H 93 08/22/16 00:54 08/22/16 00:54 08/22/16 00:54 08/22/16 00:54 08/22/16 00:54 - Notes Notes: PHYSICAL EXAMINATION: GENERAL: In no acute distress. HEAD: Atraumatic, normocephalic. EYES: Pupils equal round and reactive to light, extraocular movements intact, sclera anicteric, conjunctiva are normal. ENT: nares patent, oropharynx clear without exudates. Moist mucous membranes. NECK: Normal range of motion, supple without lymphadenopathy LUNGS: Breath sounds clear to auscultation bilaterally and equal. No wheezes rales or rhonchi. HEART: Regular rate and rhythm without murmurs ABDOMEN: Soft, nontender, normoactive bowel sounds. No guarding, no rebound. No masses appreciated. EXTREMITIES: Normal range of motion, no pitting or edema. No cyanosis. NEUROLOGICAL: Cranial nerves grossly intact. Normal speech, normal gait. Normal sensory and motor exams. PSYCH: Suicidal thoughts, cooperative SKIN: Warm, Dry, normal turgor, no rashes or lesions noted. Course - Re-evaluation Re-evalutation: 08/22/16 00:40 Pt attempted suicide tonight by using a dirty machete. The ad operations associate department has already filled out an IVC. Will have patient evaluated by mental health again. Patient should be admitted to an inpatient psychiatric facility. 08/22/16 03:05 Pt said that he is going through ETOH withdrawal. His CIWA score is 3. Will provide him with Neurontin to help prevent withdrawal seizures. - Vital Signs Vital signs: Temp Pulse Resp BP Pulse Ox 98.1 F 80 20 140/77 H 93 08/22/16 00:54 08/22/16 00:54 08/22/16 00:54 08/22/16 00:54 08/22/16 00:54 - Laboratory Result Diagrams: 08/22/16 00:42 08/22/16 00:42 Laboratory results interpreted by me: 07/11/17 07/11/17 07/11/17 00:42 00:42 00:55 RDW 14.5 H Carbon Dioxide 16 L BUN 6 L Urine Protein 30 H Urine Ketones TRACE H Urine Blood MODERATE H Salicylates < 1.0 L Acetaminophen < 10 L Discharge - Discharge Clinical Impression: Suicidal behavior with attempted self-injury Condition: Serious Disposition: PSYCH HOSP/UNIT
[2016-08-22 01:06] LABS: MEAN CORPUSCULAR VOLUME 96 fl (80-97)
[2016-08-22 01:09] LABS: ABSOLUTE LYMPHOCYTES (AUTO) 2.7 10^3/uL (0.5-4.7); ABSOLUTE MONOCYTES (AUTO) 0.9 10^3/uL (0.1-1.4); ABSOLUTE NEUT (AUTO) 6.8 10^3/uL (1.7-8.2); BASOPHILS % (AUTO) 0.3 % (0-2); EOSINOPHILS % (AUTO) 0.4 % (0-6); HEMATOCRIT 46.9 % (37.9-51.0); HEMOGLOBIN 15.9 g/dL (13.5-17.0); HGB HCT DIFFERENCE 0.8; LYMPHOCYTES % (AUTO) 25.8 % (13-45); MEAN CORPUSCULAR HEMOGLOBIN 32.3 pg (27.0-33.4); MEAN CORPUSCULAR HGB CONC 33.8 g/dL (32.0-36.0); MONOCYTES % (AUTO) 8.4 % (3-13); RED BLOOD COUNT 4.91 10^6/uL (4.35-5.55); RED CELL DISTRIBUTION WIDTH 14.5 % (11.5-14.0); SEGMENTED NEUTROPHILS % (AUTO) 65.1 % (42-78)
[2016-08-22 01:10] LABS: WHITE BLOOD COUNT 10.4 10^3/uL (4.0-10.5)
[2016-08-22 01:13] LABS: ALANINE AMINOTRANSFERASE 31 U/L (21-72); ALBUMIN 4.8 g/dL (3.5-5.0); ALCOHOL 140 mg/dL (NONE DETECTED); ALKALINE PHOSPHATASE 89 U/L (38-126); ANION GAP 18 (5-19); ASPARTATE AMINO TRANSFERASE 30 U/L (17-59); BILIRUBIN,DIRECT 0.3 mg/dL (0.0-0.4); BILIRUBIN,TOTAL 0.8 mg/dL (0.2-1.3); BLOOD UREA NITROGEN 6 mg/dL (7-20); CALCIUM 9.3 mg/dL (8.4-10.2); CARBON DIOXIDE 16 mmol/L (22-30); CHLORIDE 106 mmol/L (98-107); GLUCOSE 87 mg/dL (75-110); POTASSIUM 4.2 mmol/L (3.6-5.0); SODIUM 140.4 mmol/L (137-145)
[2016-08-22 01:16] LABS: APPEARANCE,URINE CLEAR; BILIRUBIN,URINE NEGATIVE (NEGATIVE); GLUCOSE, URINE NEGATIVE (NEGATIVE); KETONES,URINE TRACE mg/dL (NEGATIVE); LEUKOCYTE ESTERASE,URINE NEGATIVE (NEGATIVE); NITRITE,URINE NEGATIVE (NEGATIVE); PROTEIN,URINE 30 mg/dL (NEGATIVE); URINE SPECIFIC GRAVITY 1.004; UROBILINOGEN,URINE NEGATIVE mg/dL (<2.0)
[2016-08-22 02:08] LABS: URINE BARBITURATES SCREEN NEGATIVE; URINE METHADONE SCREEN NEGATIVE; URINE OPIATES LOW NEGATIVE; URINE PHENCYCLIDINE SCREEN NEGATIVE
[2016-08-22] MEDS ORDERED: LORAZEPAM 1 MG TABLET PO ONE ×2 (03:03→10:12)
[2016-08-22] MEDS: GABAPENTIN 400 MG CAPSULE PO SCH ×3 (06:30→21:49)
--- NOTE | 2016-08-22 07:51 | EKG REPORT ---
SEVERITY:- BORDERLINE ECG - SINUS RHYTHM PROBABLE LEFT ATRIAL ABNORMALITY : Confirmed by: Jose Aguirre MD 22-Aug-2016 07:50:51
--- NOTE | 2016-08-22 14:59 | ER Document Report ---
Doctor's Note Notes: 08/22/16 14:59 Patient seen and evaluated by mental health. They wish to keep patient overnight for further observation and management due to concerns about alcohol withdrawal. Patient is currently without complaint. Vital signs are stable. Medication orders entered per mental health request.
[2016-08-22] MEDS ORDERED: GABAPENTIN 300 MG CAPSULE PO SCH ×3 (15:00→15:45)
[2016-08-22] MEDS ORDERED: IBUPROFEN 800 MG TABLET ONE (15:38)
[2016-08-22] MEDS ORDERED: GABAPENTIN 400 MG CAPSULE PO ONE (15:45)
[2016-08-22] MEDS: LEVETIRACETAM 500 MG TABLET PO SCH (19:04)
[2016-08-22] MEDS ORDERED: DIPHENHYDRAMINE HCL 50 MG CAPSULE PO ONE (23:13)
[2016-08-23] MEDS ORDERED: LORAZEPAM 1 MG TABLET PO ONE (00:22)
[2016-08-23] MEDS: GABAPENTIN 400 MG CAPSULE PO SCH ×2 (06:52→14:01)
--- NOTE | 2016-08-23 08:51 | ER Document Report ---
Doctor's Note Notes: 08/23/16 08:51 Patient seen and evaluated by me. Vital signs are stable . patient states he rested more comfortably last night. He denies any acute complaints today. Awaiting mental health evaluation.
[2016-08-23] MEDS: LEVETIRACETAM 500 MG TABLET PO SCH (10:25)
--- NOTE | 2016-08-23 13:55 | ER Document Report ---
Doctor's Note Notes: 08/23/16 13:54 Per mental health, patient is to be discharged. They have arranged for appropriate outpatient follow-up. Discharge - Discharge Clinical Impression: Suicidal behavior with attempted self-injury, Alcohol intoxication, Alcohol use disorder, severe, dependence Condition: Fair Disposition: HOME, SELF-CARE Additional Instructions: CHRONIC ALCOHOLISM and ALCOHOL ABUSE: Your evaluation reveals evidence of chronic alcoholism, an addiction to alcohol. The tendency to alcoholism may be inherited. Chronic use of alcohol weakens muscles, causes fatty deposits in the liver , damages the stomach, makes you more prone to infections, and can cause defects in unborn children. In the long run, brain atrophy and cirrhosis of the liver result. You are also at greater risk for certain types of cancer, such as cancer of the mouth, throat, stomach, and liver. Counselling services are available to help you. In-hospital treatment programs often help. Support groups such as Alcoholics Anonymous can be very useful in beating this addiction. Your physician can make a referral for you. As alcoholics often are prone to other addictions, you should discuss your use of any other medications with the doctor. DEPRESSION: Your evaluation reveals that you have mental depression. While symptoms may be vague, they often include disturbance of sleep, fatigue, loss of appetite , and general loss of interest in life. While depression may be a side effect of drugs, or a reaction to a major change in your life, many cases have no known cause. If depression is acute, and related to a major loss in your life, you can expect it to clear completely with time. If you have been depressed a long time , are prone to repeated bouts of depression or low mood, or have been thinking of suicide, get help. Depression can be treated with anti-depressant medication and counselling. Long-term depression will often take a few weeks to clear, even with appropriate medication. Follow-up care is important. SUICIDAL IDEATION: Suicidal ideation is a common medical term for thoughts about suicide, which may be as detailed as a formulated plan, without the suicidal act itself. Although most people who undergo suicidal ideation do not commit suicide, some go on to make suicide attempts. The range of suicidal ideation varies greatly from fleeting to detailed planning, role playing, and unsuccessful attempts. While thoughts about suicide are common, most people do not carry out serious actions to commit suicide. Based upon your evaluation and discussion with you, we do not believe you are currently at risk to act upon your thoughts of suicide. You have agreed to return to the Emergency Department, at any time, if you feel inclined to act upon your suicidal thoughts. You will be discharged to [facility] team. They will take you directly home and continue seeking voluntary inpatient detoxification. While waiting for detoxification you should follow up with [facility], [facility], or [facility] for outpatient substance abuse treatment. Referrals: [facility] [Provider Group] - 08/23/16 1:00 pm
[2016-08-23 14:58] VITALS: BP 144/89
== END 2016-08-23 15:30 | disposition home or self-care (01) ==
LOC: ER 00:14
DX: R45.851 Suicidal ideations (principal); F10.229 Alcohol dependence with intoxication, unspecified; G31.84 Mild cognitive impairment of uncertain or unknown etiology; F17.200 Nicotine dependence, unspecified, uncomplicated
CPT/HCPCS: 36415; 80053; 80307; 81001; 85025; 93005; 93010; 99284

== ENCOUNTER 2016-08-24 16:01 | Emergency (ER) | payer SELFPAY ==
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
[2016-08-24] MEDS ORDERED: LORAZEPAM 1 MG TABLET PO ONE (16:56)
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
[2016-08-24 17:56] VITALS: BP 138/98
== END 2016-08-24 17:53 | disposition home or self-care (01) ==
LOC: ER 16:01
DX: E51.2 Wernicke's encephalopathy (principal); R11.0 Nausea; R44.3 Hallucinations, unspecified; F10.239 Alcohol dependence with withdrawal, unspecified; R25.1 Tremor, unspecified; F19.10 Other psychoactive substance abuse, uncomplicated; F17.200 Nicotine dependence, unspecified, uncomplicated
CPT/HCPCS: 99283

== ENCOUNTER 2016-11-14 17:52 | Emergency (ER) | payer SELFPAY ==
[2016-11-14 18:44] LABS: ABSOLUTE LYMPHOCYTES (AUTO) 2.7 10^3/uL (0.5-4.7); ABSOLUTE MONOCYTES (AUTO) 0.4 10^3/uL (0.1-1.4); ABSOLUTE NEUT (AUTO) 3.1 10^3/uL (1.7-8.2); BASOPHILS % (AUTO) 0.5 % (0-2); EOSINOPHILS % (AUTO) 0.1 % (0-6); HEMATOCRIT 42.6 % (37.9-51.0); HEMOGLOBIN 14.8 g/dL (13.5-17.0); HGB HCT DIFFERENCE 1.8; LYMPHOCYTES % (AUTO) 43.1 % (13-45); MEAN CORPUSCULAR HGB CONC 34.8 g/dL (32.0-36.0); MEAN CORPUSCULAR VOLUME 95 fl (80-97); MONOCYTES % (AUTO) 5.8 % (3-13); RED BLOOD COUNT 4.49 10^6/uL (4.35-5.55); RED CELL DISTRIBUTION WIDTH 14.8 % (11.5-14.0); SEGMENTED NEUTROPHILS % (AUTO) 50.5 % (42-78); WHITE BLOOD COUNT 6.2 10^3/uL (4.0-10.5)
[2016-11-14 18:59] LABS: APPEARANCE,URINE CLEAR; BILIRUBIN,URINE NEGATIVE (NEGATIVE); GLUCOSE, URINE NEGATIVE (NEGATIVE); KETONES,URINE NEGATIVE (NEGATIVE); LEUKOCYTE ESTERASE,URINE NEGATIVE (NEGATIVE); NITRITE,URINE NEGATIVE (NEGATIVE); PROTEIN,URINE NEGATIVE (NEGATIVE); URINE SPECIFIC GRAVITY 1.003; UROBILINOGEN,URINE NEGATIVE mg/dL (<2.0)
[2016-11-14 19:07] LABS: ALANINE AMINOTRANSFERASE 46 U/L (21-72); ALBUMIN 4.6 g/dL (3.5-5.0); ALCOHOL 278 mg/dL (NONE DETECTED); ALKALINE PHOSPHATASE 86 U/L (38-126); ANION GAP 16 (5-19); ASPARTATE AMINO TRANSFERASE 36 U/L (17-59); BILIRUBIN,DIRECT 0.4 mg/dL (0.0-0.4); BILIRUBIN,TOTAL 0.5 mg/dL (0.2-1.3); BLOOD UREA NITROGEN 6 mg/dL (7-20); CALCIUM 9.5 mg/dL (8.4-10.2); CARBON DIOXIDE 21 mmol/L (22-30); CHLORIDE 106 mmol/L (98-107); CREATININE RESULT 0.71 mg/dL (0.52-1.25); GLUCOSE 82 mg/dL (75-110); POTASSIUM 4.6 mmol/L (3.6-5.0); SODIUM 142.6 mmol/L (137-145); TOTAL PROTEIN 7.4 g/dL (6.3-8.2)
[2016-11-14 19:17] LABS: URINE BARBITURATES SCREEN NEGATIVE; URINE METHADONE SCREEN NEGATIVE; URINE OPIATES LOW NEGATIVE; URINE PHENCYCLIDINE SCREEN NEGATIVE
[2016-11-14] MEDS ORDERED: LORAZEPAM 1 MG TABLET PO ONE (21:55)
--- NOTE | 2016-11-14 22:07 | ER Document Report ---
ED General - General Chief Complaint: Psych Problem Stated Complaint: PSYCH EVALUATION Time Seen by Provider: 11/14/16 18:09 Mode of Arrival: Ambulatory Information source: Patient Notes: This is a 46-year-old man with a history of seizures, alcohol abuse and depression who presents to the emergency room suicidal and homicidal in the setting of alcohol intoxication. The patient does state he wants to kill himself as well as his "ex" who is apparently living in his old house with a new boyfriend. TRAVEL OUTSIDE OF THE [place] IN LAST 30 DAYS: No - HPI Onset: Last week Onset/Duration: Gradual Quality of pain: No pain Severity: None Pain Level: Denies Associated symptoms: denies: Chest pain, Fever, Shortness of breath Exacerbated by: Denies Relieved by: Denies Similar symptoms previously: Yes Recently seen / treated by doctor: Yes - Related Data Allergies/Adverse Reactions: No Known Allergies Allergy (Verified 08/24/16 16:02) Home Medications: Current Home Medications No Home Medications 11/14/16 [History] Past Medical History - General Information source: Patient - Social History Smoking Status: Unknown if Ever Smoked Cigarette use (# per day): No Chew tobacco use (# tins/day): No Frequency of alcohol use: Heavy Drug Abuse: Marijuana Lives with: Family Family History: Reviewed & Not Pertinent Patient has suicidal ideation: Yes Patient has homicidal ideation: Yes - Past Medical History Cardiac Medical History: Reports: Hx Hypertension Denies: Hx Congestive Heart Failure, Hx DVT, Hx Heart Attack, Hx Hypercholesterolemia, Hx Pulmonary Embolism Pulmonary Medical History: Reports: Hx COPD Neurological Medical History: Reports: Hx Seizures - [place] secondary to alcohol withdrawal. Endocrine Medical History: Denies: Hx Diabetes Mellitus Type 1, Hx Diabetes Mellitus Type 2, Hx Hyperthyroidism, Hx Hypothyroidism Renal/ Medical History: Denies: Hx Peritoneal Dialysis GI Medical History: Denies: Hx Cirrhosis, Hx Hepatitis Musculoskeltal Medical History: Reports Hx Arthritis Skin Medical History: Denies Hx Eczema, Denies Hx Psoriasis Psychiatric Medical History: Reports: Hx Depression Infectious Medical History: Denies: Hx Hepatitis Past Surgical History: Reports: Hx Abdominal Surgery, Hx Appendectomy, Hx Orthopedic Surgery - left shoulder - Immunizations Hx Diphtheria, Pertussis, Tetanus Vaccination: Yes Review of Systems - Review of Systems Constitutional: denies: Chills, Fever EENT: No symptoms reported Cardiovascular: No symptoms reported Respiratory: No symptoms reported Gastrointestinal: No symptoms reported Genitourinary: No symptoms reported Male Genitourinary: No symptoms reported Musculoskeletal: No symptoms reported Skin: No symptoms reported Hematologic/Lymphatic: No symptoms reported Neurological/Psychological: See HPI Physical Exam - Vital signs Vitals: Temp Pulse Resp BP Pulse Ox 98.1 F 77 20 138/84 H 99 11/14/16 17:59 11/14/16 17:59 11/14/16 17:59 11/14/16 17:59 11/14/16 17:59 Notes: Physical exam: GENERAL: 46-year-old man, anxious, depressed. HEAD: Atraumatic, normocephalic. EYES: Pupils equal round and reactive to light, extraocular movements intact, sclera anicteric, conjunctiva are normal. ENT: TMs normal, nares patent, oropharynx clear without exudates. Moist mucous membranes. NECK: Normal range of motion, supple without obvious mass or JVD. LUNGS: Breath sounds clear to auscultation bilaterally and equal. No wheezes rales or rhonchi. HEART: Regular rate and rhythm without murmurs, rubs or gallops. ABDOMEN: Soft, normoactive bowel sounds. No tenderness to palpation. No guarding, no rebound. No masses appreciated. EXTREMITIES: Normal range of motion, no pitting or edema. No clubbing or cyanosis. NEUROLOGICAL: Cranial nerves II through XII grossly intact. Normal speech, moving all extremities. PSYCH: Anxious and depressed SKIN: Warm, Dry, normal turgor, no rashes or lesions noted. Course - Re-evaluation Re-evalutation: 11/15/16 02:52 Note: This patient is well-known to me. He does have a history of alcohol withdrawal and depression. The plan will be to observe him to the morning for psychiatric evaluation. I have prescribed Ativan as needed to prevent withdrawal. - Vital Signs Vital signs: Temp Pulse Resp BP Pulse Ox 98.1 F 77 18 138/84 H 99 11/14/16 17:59 11/14/16 17:59 11/14/16 22:09 11/14/16 17:59 11/14/16 17:59 - Laboratory Result Diagrams: 11/14/16 18:25 11/14/16 18:25 Laboratory results interpreted by me: 10/04/2811/14/16 11/14/16 18:25 18:25 18:30 RDW 14.8 H Carbon Dioxide 21 L BUN 6 L Urine Blood SMALL H Salicylates < 1.0 L Acetaminophen < 10 L - EKG Interpretation by Me Rate: Normal Rhythm: NSR Discharge - Discharge Clinical Impression: Depression, Suicidal and homicidal ideations, Alcohol abuse Condition: Stable Disposition: PSYCH HOSP/UNIT
[2016-11-15] MEDS: LORAZEPAM 1 MG TABLET PO PRN ×5 (00:56→23:50)
--- NOTE | 2016-11-15 09:00 | EKG REPORT ---
SEVERITY:- OTHERWISE NORMAL ECG - SINUS RHYTHM LOW VOLTAGE IN FRONTAL LEADS ST ELEV, PROBABLE NORMAL EARLY REPOL PATTERN : Confirmed by: Sandra Ledezma MD 15-Nov-2016 08:59:27
--- NOTE | 2016-11-15 09:22 | ER Document Report ---
ED General - General Chief Complaint: Psych Problem Stated Complaint: PSYCH EVALUATION Time Seen by Provider: 11/14/16 18:09 Mode of Arrival: Ambulatory TRAVEL OUTSIDE OF THE [place] IN LAST 30 DAYS: No - Related Data Allergies/Adverse Reactions: No Known Allergies Allergy (Verified 08/24/16 16:02) Home Medications: Current Home Medications No Home Medications 11/14/16 [History] Past Medical History - General Information source: Patient - Social History Smoking Status: Unknown if Ever Smoked Cigarette use (# per day): No Chew tobacco use (# tins/day): No Frequency of alcohol use: Heavy Drug Abuse: Marijuana Lives with: Family Family History: Reviewed & Not Pertinent Patient has suicidal ideation: Yes Patient has homicidal ideation: Yes - Past Medical History Cardiac Medical History: Reports: Hx Hypertension Denies: Hx Congestive Heart Failure, Hx DVT, Hx Heart Attack, Hx Hypercholesterolemia, Hx Pulmonary Embolism Pulmonary Medical History: Reports: Hx COPD Neurological Medical History: Reports: Hx Seizures - [place] secondary to alcohol withdrawal. Endocrine Medical History: Denies: Hx Diabetes Mellitus Type 1, Hx Diabetes Mellitus Type 2, Hx Hyperthyroidism, Hx Hypothyroidism Renal/ Medical History: Denies: Hx Peritoneal Dialysis GI Medical History: Denies: Hx Cirrhosis, Hx Hepatitis Musculoskeltal Medical History: Reports Hx Arthritis Skin Medical History: Denies Hx Eczema, Denies Hx Psoriasis Psychiatric Medical History: Reports: Hx Depression Infectious Medical History: Denies: Hx Hepatitis Past Surgical History: Reports: Hx Abdominal Surgery, Hx Appendectomy, Hx Orthopedic Surgery - left shoulder - Immunizations Hx Diphtheria, Pertussis, Tetanus Vaccination: Yes Physical Exam - Vital signs Vitals: Temp Pulse Resp BP Pulse Ox 98.1 F 77 20 138/84 H 99 11/14/16 17:59 11/14/16 17:59 11/14/16 17:59 11/14/16 17:59 11/14/16 17:59 Course - Re-evaluation Re-evalutation: 11/15/16 09:22 As the rounding emergency physician I examined this patient. I reviewed the patient's chart. The patient is currently resting comfortably and requires no acute medical intervention. Disposition per psychiatry. - Vital Signs Vital signs: Temp Pulse Resp BP Pulse Ox 98.4 F 75 18 133/75 H 97 11/15/16 06:00 11/15/16 06:00 11/15/16 06:00 11/15/16 06:00 11/15/16 06:00 - Laboratory Result Diagrams: 11/14/16 18:25 11/14/16 18:25 Laboratory results interpreted by me: 11/14/16 11/14/16 11/14/16 18:25 18:25 18:30 RDW 14.8 H Carbon Dioxide 21 L BUN 6 L Urine Blood SMALL H Salicylates < 1.0 L Acetaminophen < 10 L Discharge - Discharge Clinical Impression: Depression, Suicidal and homicidal ideations, Alcohol abuse Condition: Stable Disposition: PSYCH HOSP/UNIT
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
[2016-11-16] MEDS ORDERED: ONDANSETRON 4 MG TAB.RAPDIS PO ONE (08:23)
[2016-11-16] MEDS: LORAZEPAM 1 MG TABLET PO PRN ×3 (10:59→22:09)
--- NOTE | 2016-11-16 15:44 | ER Document Report ---
Doctor's Note Notes: 11/16/16 15:44 Patient is awake and still complaining of auditory hallucinations with homicidal ideations as well as suicidal ideations. States that the voices are telling him to kill his and then kill himself. Patient will need inpatient evaluation. Will continue to follow the consult with mental health providers here. Nothing further at this time. Ativan as needed for anxiety.
[2016-11-17] MEDS: LORAZEPAM 1 MG TABLET PO PRN ×6 (01:59→21:15)
--- NOTE | 2016-11-17 13:17 | ER Document Report ---
Doctor's Note Notes: 11/17/16 13:17 Patient stable at this time, no evidence of withdrawals, previously receiving Ativan 1 mg every 2 hours as needed for withdrawal symptoms, today we will decrease this to 1 mg every 4 hours as needed for withdrawal symptoms in an effort to taper him off of this. Patient still needs IVC criteria, mental health and I continue to recommend inpatient treatment, patient has had medications added for his suicidal and homicidal ideation.
[2016-11-17] MEDS: GABAPENTIN 400 MG CAPSULE PO SCH ×2 (14:15→21:15)
[2016-11-17] MEDS: LEVETIRACETAM 500 MG TABLET PO SCH (18:06)
[2016-11-18] MEDS: LORAZEPAM 1 MG TABLET PO PRN ×5 (00:25→16:23)
[2016-11-18] MEDS: GABAPENTIN 400 MG CAPSULE PO SCH ×2 (08:12→16:24)
--- NOTE | 2016-11-18 10:02 | ER Document Report ---
Doctor's Note Notes: 11/18/16 09:59 This is a 46-year-old patient pending DC today. Not acutely psychotic. Not homicidal in my opinion. Not suicidal in my opinion. Patient does have some underlying alcohol abuse issues which are likely contributing to his symptoms. We will likely be able to discharge soon.
[2016-11-18] MEDS: LEVETIRACETAM 500 MG TABLET PO SCH (11:59)
[2016-11-18 16:09] VITALS: BP 124/85
== END 2016-11-18 17:55 | disposition home or self-care (01) ==
LOC: ER 17:52
DX: F32.9 Major depressive disorder, single episode, unspecified (principal); R45.851 Suicidal ideations; R45.850 Homicidal ideations; F10.10 Alcohol abuse, uncomplicated; I10 Essential (primary) hypertension; J44.9 Chronic obstructive pulmonary disease, unspecified
CPT/HCPCS: 93005; 99285; 36415; 80307 ×4; 83735; 85025; 80053; 81001; 93010; S0119

== ENCOUNTER 2016-12-26 16:34 | Emergency (ER) | payer SELFPAY ==
--- NOTE | 2016-12-26 17:06 | ER Document Report ---
ED Psych Disorder / Suicide - General Chief Complaint: Psych Problem Stated Complaint: IVC Time Seen by Provider: 12/26/16 16:59 Notes: The patient is a 46-year-old male, past medical history chronic alcoholic, presents on an IVC filled out from [facility]. He states that he is hearing voices that are telling him to end it all. The voices say to go to sleep and shoot himself. He is drinking of gallon of vodka a day and has been actively drinking for the past 3 weeks. He had been in detox and relapsed 5 weeks ago. The IVC says that he is a danger to himself. TRAVEL OUTSIDE OF THE [place] IN LAST 30 DAYS: No - Related Data Allergies/Adverse Reactions: No Known Allergies Allergy (Verified 08/24/16 16:02) Past Medical History - General Information source: Patient - Social History Smoking Status: Unknown if Ever Smoked Frequency of alcohol use: Heavy Family History: Reviewed & Not Pertinent - Past Medical History Cardiac Medical History: Reports: Hx Hypertension Denies: Hx Congestive Heart Failure, Hx DVT, Hx Heart Attack, Hx Hypercholesterolemia, Hx Pulmonary Embolism Pulmonary Medical History: Reports: Hx COPD Neurological Medical History: Reports: Hx Seizures - [place] secondary to alcohol withdrawal. Endocrine Medical History: Denies: Hx Diabetes Mellitus Type 1, Hx Diabetes Mellitus Type 2, Hx Hyperthyroidism, Hx Hypothyroidism Renal/ Medical History: Denies: Hx Peritoneal Dialysis GI Medical History: Denies: Hx Cirrhosis, Hx Hepatitis Musculoskeltal Medical History: Reports Hx Arthritis Skin Medical History: Denies Hx Eczema, Denies Hx Psoriasis Psychiatric Medical History: Reports: Hx Depression Infectious Medical History: Denies: Hx Hepatitis Past Surgical History: Reports: Hx Abdominal Surgery, Hx Appendectomy, Hx Orthopedic Surgery - left shoulder - Immunizations Hx Diphtheria, Pertussis, Tetanus Vaccination: Yes Review of Systems - Review of Systems Notes: REVIEW OF SYSTEMS: CONSTITUTIONAL: -fevers, -chills EENT: -eye pain, -difficulty swallowing, -nasal congestion CARDIOVASCULAR:-chest pain, -syncope. RESPIRATORY: -cough, -SOB GASTROINTESTINAL: -abdominal pain, - nausea, -vomiting, -diarrhea GENITOURINARY: -dysuria, -hematuria MUSCULOSKELETAL: -back pain, -neck pain SKIN: -rash or skin lesions. HEMATOLOGIC: -easy bruising or bleeding. LYMPHATIC: -swollen, enlarged glands. NEUROLOGICAL: -altered mental status or loss of consciousness, -headache, - neurologic symptoms PSYCHIATRIC: -anxiety, +depression, +heavy ETOH abuse ALL OTHER SYSTEMS REVIEWED AND NEGATIVE. Physical Exam - Notes Notes: PHYSICAL EXAMINATION: GENERAL: Appears clinically intoxicated. No acute distress, HEAD: Atraumatic, normocephalic. EYES: Pupils equal round and reactive to light, extraocular movements intact, sclera anicteric, conjunctiva are normal. ENT: nares patent, oropharynx clear without exudates. Moist mucous membranes. NECK: Normal range of motion, supple without lymphadenopathy LUNGS: Breath sounds clear to auscultation bilaterally and equal. No wheezes rales or rhonchi. HEART: Regular rate and rhythm without murmurs ABDOMEN: Soft, nontender, normoactive bowel sounds. No guarding, no rebound. No masses appreciated. EXTREMITIES: Normal range of motion, no pitting or edema. No cyanosis. NEUROLOGICAL: Moving all 4 extremities. Slurring words. Appears intoxicated. PSYCH: Drunk, sad mood. SKIN: Warm, Dry, normal turgor, no rashes or lesions noted. Course - Re-evaluation Re-evalutation: Patient's EtOH is 402. IVC filled out by mobile crisis. Will monitor patient for withdrawal symptoms and have mental health evaluate patient in the morning. - Laboratory Result Diagrams: 12/26/16 17:37 12/26/16 17:37 Laboratory results interpreted by me: 12/26/16 12/26/16 12/26/16 17:37 17:37 18:45 RDW 14.9 H Sodium 149.1 H Chloride 109 H Urine Blood SMALL H Salicylates < 1.0 L Acetaminophen < 10 L Serum Alcohol 402 H* Discharge - Discharge Clinical Impression: Alcohol intoxication Qualifiers: Complication of substance-induced condition: uncomplicated Qualified Code(s): F10.920 - Alcohol use, unspecified with intoxication, uncomplicated Condition: Serious Disposition: PSYCH HOSP/UNIT
[2016-12-26 18:01] LABS: ABSOLUTE LYMPHOCYTES (AUTO) 3.1 10^3/uL (0.5-4.7); ABSOLUTE MONOCYTES (AUTO) 0.6 10^3/uL (0.1-1.4); ABSOLUTE NEUT (AUTO) 3.6 10^3/uL (1.7-8.2); BASOPHILS % (AUTO) 0.3 % (0-2); EOSINOPHILS % (AUTO) 0.4 % (0-6); HEMATOCRIT 46.6 % (37.9-51.0); HEMOGLOBIN 16.3 g/dL (13.5-17.0); HGB HCT DIFFERENCE 2.3; MEAN CORPUSCULAR HEMOGLOBIN 33.3 pg (27.0-33.4); MEAN CORPUSCULAR HGB CONC 34.9 g/dL (32.0-36.0); MEAN CORPUSCULAR VOLUME 95 fl (80-97); MONOCYTES % (AUTO) 7.7 % (3-13); RED BLOOD COUNT 4.89 10^6/uL (4.35-5.55); RED CELL DISTRIBUTION WIDTH 14.9 % (11.5-14.0); SEGMENTED NEUTROPHILS % (AUTO) 49.6 % (42-78); WHITE BLOOD COUNT 7.3 10^3/uL (4.0-10.5)
[2016-12-26 18:18] LABS: ALANINE AMINOTRANSFERASE 35 U/L (21-72); ALBUMIN 4.3 g/dL (3.5-5.0); ALKALINE PHOSPHATASE 78 U/L (38-126); ANION GAP 16 (5-19); ASPARTATE AMINO TRANSFERASE 28 U/L (17-59); BILIRUBIN,DIRECT 0.3 mg/dL (0.0-0.4); BILIRUBIN,TOTAL 0.3 mg/dL (0.2-1.3); BLOOD UREA NITROGEN 7 mg/dL (7-20); CALCIUM 8.7 mg/dL (8.4-10.2); CARBON DIOXIDE 24 mmol/L (22-30); CHLORIDE 109 mmol/L (98-107); CREATININE RESULT 0.65 mg/dL (0.52-1.25); GLUCOSE 97 mg/dL (75-110); POTASSIUM 4.1 mmol/L (3.6-5.0); SODIUM 149.1 mmol/L (137-145); TOTAL PROTEIN 6.8 g/dL (6.3-8.2)
[2016-12-26 18:44] LABS: ALCOHOL 402 mg/dL (NONE DETECTED)
[2016-12-26 19:22] LABS: APPEARANCE,URINE CLEAR; BILIRUBIN,URINE NEGATIVE (NEGATIVE); GLUCOSE, URINE NEGATIVE (NEGATIVE); KETONES,URINE NEGATIVE (NEGATIVE); LEUKOCYTE ESTERASE,URINE NEGATIVE (NEGATIVE); NITRITE,URINE NEGATIVE (NEGATIVE); PROTEIN,URINE NEGATIVE (NEGATIVE); URINE SPECIFIC GRAVITY 1.005; UROBILINOGEN,URINE NEGATIVE mg/dL (<2.0)
[2016-12-26 19:35] LABS: URINE BARBITURATES SCREEN NEGATIVE; URINE METHADONE SCREEN NEGATIVE; URINE OPIATES LOW NEGATIVE; URINE PHENCYCLIDINE SCREEN NEGATIVE
[2016-12-27] MEDS ORDERED: LORAZEPAM 1 MG TABLET PO ONE ×2 (02:35→07:47)
[2016-12-27] MEDS ORDERED: ONDANSETRON 4 MG TAB.RAPDIS PO ONE (07:47)
--- NOTE | 2016-12-27 09:35 | EKG REPORT ---
SEVERITY:- NORMAL ECG - SINUS RHYTHM : Confirmed by: Yessica Richey 27-Dec-2016 09:34:28
--- NOTE | 2016-12-27 09:39 | PSYCHOLOGICAL NOTE ---
Psych Note - Psych Note Psych Note: This is a 46-year-old male who presented overnight acutely intoxicated. Patient is well-known to this clinician as well as this department for prior episodes. Patient today states he was in a treatment facility in [place] which was facilitated by [facility]. He states he has been back for a number of weeks working and living in his home. Patient reports he relapsed with alcohol and wants to return to treatment. Patient states, "I want to get back on the straight and narrow." Patient denies suicidal ideations at this time. Patient reports he is agreeable to follow-up with [facility]. Patient reports he has been drinking roughly 1 gallon of vodka per day. Patient's BAL upon arrival was in the 402. Patient again denies suicidal/homicidal ideations. At this time there is no collateral contacts to be made. Patient has reportedly severed ties with his ex- girlfriend historically his only known support individual in this area. Patient is alert and oriented. Mood is euthymic with normal affect. Patient denies suicidal/homicidal ideations, intent, plan, means. Patient denies A/VH; delusions not noted. Thought processes were organized. Conversational speech was within normal limits for rate, tone, and prosody. Intellectual abilities were estimated within average range. Attention and focus were fair. Insight, judgment, impulse control were poor to fair. 303.00 (10.229) Alcohol Intoxication, with severe use Patient is psychiatrically cleared. Patient is recommended for recent IVC to follow-up with [facility]. Coordination of care occurred between a viral health continuous pillowcase cutter and Luis Alberto ESTEBAN, who states they will meet the patient upon discharge. Patient no longer meets criteria for IVC as he denies suicidal and homicidal ideations. The statements were noted to be made while acutely intoxicated. Patient at this time is stating he wants to engage in treatment and return to the facility in [place] if possible. I consulted with Dr. Slaughter in regards to the care and management of this patient. EDNC is in agreement with disposition and recommendations.
--- NOTE | 2016-12-27 10:07 | ER Document Report ---
Doctor's Note Notes: Patient is a 46 year old male presenting to the emergency department complaining of hallucinations and alcohol withdrawals. Patient states that he has been sober for 12/27/16 10:05 12/27/16 10:07 (ROSA ISELA MILLARD) 12/27/16 10:09 Patient had been sober for several weeks after inpatient rehab however he relapsed 3 weeks ago. States that yesterday he became angry with his from whom he is getting a divorce and shouted that if she called him 1 more time he would shoot her. States that he did not mean it, denies suicidal homicidal ideation, states that he knows he needs to get his act together and stop drinking because his kids need him. Patient complains of double vision and nausea, states he is unable to keep anything down. At this point there is a half eaten breakfast tray by his bed and no evidence of emesis or emesis bag in the room. He has a slight tremor on examination, no asterixis, no evidence of hallucinations. States that the Ativan helped him quite a bit. Patient will be met by [facility] and [facility] in the parking lot of the hospital, he will be discharged to home for further outpatient treatment, he will be given a prescription for Zofran ODT and Librium to help with his withdrawal symptoms. (RYAN JEROME)
[2016-12-27 10:33] VITALS: BP 140/90
== END 2016-12-27 10:20 | disposition home or self-care (01) ==
LOC: ER 16:34
DX: F10.920 Alcohol use, unspecified with intoxication, uncomplicated (principal); F32.9 Major depressive disorder, single episode, unspecified; R44.0 Auditory hallucinations; I10 Essential (primary) hypertension
CPT/HCPCS: 93005; 99285; 36415; 80307 ×4; 85025; 80053; 81001; 93010; S0119

== ENCOUNTER 2017-07-10 20:25 | Emergency (ER) | payer SELFPAY ==
--- NOTE | 2017-07-10 20:47 | ER Document Report ---
ED General - General Stated Complaint: PSYCH EVAL Time Seen by Provider: 07/10/17 20:38 Mode of Arrival: Medic Information source: Patient, Emergency Med Personnel Cannot obtain history due to: Uncooperative Notes: 46-year-old male with depression, hypertension, COPD, alcohol abuse presents via EMS after EMS reports that he called 911 and stated that he wanted to kill himself. Patient reported that he tried to quit drinking today but experienced a seizure and then began drinking again. Upon my exam patient will only shake his head yes and no to questions. He admits to suicidal ideation but will not tell me what his plan is. He admits to abdominal pain but will not tell me when this started. He did tell EMS that he has drank in approximately half a gallon of vodka today. Patient lives alone. He states he has no family nearby. TRAVEL OUTSIDE OF THE [place] IN LAST 30 DAYS: No - HPI Onset: Just prior to arrival Onset/Duration: Gradual Pain Level: 1 Exacerbated by: Denies, Standing Similar symptoms previously: Yes Recently seen / treated by doctor: Yes - Related Data Allergies/Adverse Reactions: No Known Allergies Allergy (Verified 08/24/16 16:02) Past Medical History - General Information source: Patient, [facility] Records - Social History Smoking Status: Current Every Day Smoker Smoking Education Provided: Yes - Patient counselled regarding cessation for 4 minutes Frequency of alcohol use: Heavy Drug Abuse: None Lives with: Alone Family History: Reviewed & Not Pertinent - Past Medical History Cardiac Medical History: Reports: Hx Hypertension Denies: Hx Congestive Heart Failure, Hx DVT, Hx Heart Attack, Hx Hypercholesterolemia, Hx Pulmonary Embolism Pulmonary Medical History: Reports: Hx COPD Neurological Medical History: Reports: Hx Seizures - [place] secondary to alcohol withdrawal. Endocrine Medical History: Denies: Hx Diabetes Mellitus Type 1, Hx Diabetes Mellitus Type 2, Hx Hyperthyroidism, Hx Hypothyroidism Renal/ Medical History: Denies: Hx Peritoneal Dialysis GI Medical History: Denies: Hx Cirrhosis, Hx Hepatitis Musculoskeltal Medical History: Reports Hx Arthritis Skin Medical History: Denies Hx Eczema, Denies Hx Psoriasis Psychiatric Medical History: Reports: Hx Depression Infectious Medical History: Denies: Hx Hepatitis Past Surgical History: Reports: Hx Abdominal Surgery, Hx Appendectomy, Hx Orthopedic Surgery - left shoulder - Immunizations Hx Diphtheria, Pertussis, Tetanus Vaccination: Yes Review of Systems - Review of Systems -: Yes ROS unobtainable due to patient's medical condition Physical Exam - Vital signs Interpretation: Normal - Notes Notes: PHYSICAL EXAMINATION: GENERAL: Well-appearing, well-nourished and in no acute distress. HEAD: Atraumatic, normocephalic. EYES: Pupils equal round and reactive to light, extraocular movements intact, sclera anicteric, conjunctiva are normal. ENT: Nares patent, oropharynx clear without exudates. Moist mucous membranes. NECK: Normal range of motion, supple without lymphadenopathy LUNGS: Breath sounds clear to auscultation bilaterally and equal. No wheezes rales or rhonchi. HEART: Regular rate and rhythm without murmurs ABDOMEN: Soft, nontender, nondistended abdomen. No guarding, no rebound. No masses appreciated. Musculoskeletal: Normal range of motion, no pitting or edema. No cyanosis. NEUROLOGICAL: Cranial nerves grossly intact. Normal speech, normal gait. Normal sensory, motor exams PSYCH: Tearful, SI SKIN: Warm, Dry, normal turgor, no rashes or lesions noted. Course - Re-evaluation Re-evalutation: 07/10/17 22:48 Laboratory 07/10/17 07/10/17 07/10/17 20:50 20:50 20:50 WBC 5.8 RBC 4.92 Hgb 16.1 Hct 46.0 MCV 94 MCH 32.6 MCHC 34.9 RDW 16.8 H Plt Count 396 Seg Neutrophils % 32.7 L Lymphocytes % 54.2 H Monocytes % 11.7 Eosinophils % 0.4 Basophils % 1.0 Absolute Neutrophils 1.9 Absolute Lymphocytes 3.1 Absolute Monocytes 0.7 Absolute Eosinophils 0.0 Absolute Basophils 0.1 Sodium 146.6 H Potassium 4.4 Chloride 105 Carbon Dioxide 24 Anion Gap 18 BUN 6 L Creatinine 0.64 Est GFR ( Amer) > 60 Est GFR (Non-Af Amer) > 60 Glucose 145 H Calcium 9.3 Total Bilirubin 0.2 Direct Bilirubin 0.2 Neonat Total Bilirubin Not Reportable Neonat Direct Bilirubin Not Reportable Neonat Indirect Bili Not Reportable AST 57 ALT 49 Alkaline Phosphatase 70 Creatine Kinase 110 CK-MB (CK-2) Troponin I Total Protein 7.4 Albumin 4.5 Lipase 374.7 H Urine Color Urine Appearance Urine pH Ur Specific [place] Urine Protein Urine Glucose (UA) Urine Ketones Urine Blood Urine Nitrite Urine Bilirubin Urine Urobilinogen Ur Leukocyte Esterase Urine WBC (Auto) Urine RBC (Auto) Urine Ascorbic Acid Salicylates < 1.0 L Urine Opiates Screen Urine Methadone Screen Acetaminophen < 10 L Ur Barbiturates Screen Ur Phencyclidine Scrn Ur Amphetamines Screen U Benzodiazepines Scrn Urine Cocaine Screen U Marijuana (THC) Screen Serum Alcohol 422 H* 07/10/17 07/10/17 07/10/17 20:50 21:48 21:48 WBC RBC Hgb Hct MCV MCH MCHC RDW Plt Count Seg Neutrophils % Lymphocytes % Monocytes % Eosinophils % Basophils % Absolute Neutrophils Absolute Lymphocytes Absolute Monocytes Absolute Eosinophils Absolute Basophils Sodium Potassium Chloride Carbon Dioxide Anion Gap BUN Creatinine Est GFR ( Amer) Est GFR (Non-Af Amer) Glucose Calcium Total Bilirubin Direct Bilirubin Neonat Total Bilirubin Neonat Direct Bilirubin Neonat Indirect Bili AST ALT Alkaline Phosphatase Creatine Kinase CK-MB (CK-2) 0.38 Troponin I < 0.012 Total Protein Albumin Lipase Urine Color STRAW Urine Appearance CLEAR Urine pH 6.0 Ur Specific [place] 1.002 Urine Protein NEGATIVE Urine Glucose (UA) NEGATIVE Urine Ketones NEGATIVE Urine Blood SMALL H Urine Nitrite NEGATIVE Urine Bilirubin NEGATIVE Urine Urobilinogen NEGATIVE Ur Leukocyte Esterase NEGATIVE Urine WBC (Auto) 0 Urine RBC (Auto) 1 Urine Ascorbic Acid NEGATIVE Salicylates Urine Opiates Screen NEGATIVE Urine Methadone Screen NEGATIVE Acetaminophen Ur Barbiturates Screen NEGATIVE Ur Phencyclidine Scrn NEGATIVE Ur Amphetamines Screen NEGATIVE U Benzodiazepines Scrn NEGATIVE Urine Cocaine Screen NEGATIVE U Marijuana (THC) Screen NEGATIVE Serum Alcohol 07/10/17 22:50 46-year-old male with depression, hypertension, COPD, alcohol abuse presents via EMS after EMS reports that he called 911 and stated that he wanted to kill himself. Patient reported that he tried to quit drinking today but experienced a seizure and then began drinking again. Upon my exam patient will only shake his head yes and no to questions. He admits to suicidal ideation but will not tell me what his plan is. He admits to abdominal pain but will not tell me when this started. He did tell EMS that he has drank in approximately half a gallon of vodka today. Patient lives alone. He states he has no family nearby. Vital signs reviewed. Exam is significant for a tearful male who will not verbally answer any questions. During his ED course he did state to the nurse that he is depressed about his 's recent due to a car accident. He states now that his plan is to shoot himself. He does admit to access to firearms. Patient found to have a serum alcohol of 422. Patient will be cleared for psychiatric evaluation at 9 AM 07/11/2017. He currently has no evidence of alcohol withdrawal. CBC is without leukocytosis or anemia. CMP shows mildly elevated glucose. Patient has mildly elevated lipase. 07/10/17 22:52 07/10/17 23:29 - Laboratory Result Diagrams: 07/10/17 20:50 07/10/17 20:50 Laboratory results interpreted by me: 07/10/17 07/10/17 07/10/17 20:50 20:50 21:48 RDW 16.8 H Seg Neutrophils % 32.7 L Lymphocytes % 54.2 H Sodium 146.6 H BUN 6 L Glucose 145 H Lipase 374.7 H Urine Blood SMALL H Salicylates < 1.0 L Acetaminophen < 10 L Serum Alcohol 422 H* - Diagnostic Test Radiology reviewed: Image reviewed, Reports reviewed - EKG Interpretation by Nd EKG shows normal: Sinus rhythm Rate: Normal Rhythm: NSR When compared to previous EKG there are: No significant change Discharge - Discharge Clinical Impression: Suicidal ideation Pancreatitis, alcoholic, acute Qualifiers: Acute pancreatitis complication: unspecified Qualified Code(s): K85.20 - Alcohol induced acute pancreatitis without necrosis or infection Alcohol intoxication Qualifiers: Complication of substance-induced condition: with unspecified complication Qualified Code(s): F10.929 - Alcohol use, unspecified with intoxication, unspecified Condition: Good
[2017-07-10 21:09] LABS: ABSOLUTE BASOPHILS # (AUTO) 0.1 10^3/uL (0.0-0.2); ABSOLUTE LYMPHOCYTES (AUTO) 3.1 10^3/uL (0.5-4.7); ABSOLUTE MONOCYTES (AUTO) 0.7 10^3/uL (0.1-1.4); ABSOLUTE NEUT (AUTO) 1.9 10^3/uL (1.7-8.2); EOSINOPHILS % (AUTO) 0.4 % (0-6); HEMOGLOBIN 16.1 g/dL (13.5-17.0); LYMPHOCYTES % (AUTO) 54.2 % (13-45); MEAN CORPUSCULAR HEMOGLOBIN 32.6 pg (27.0-33.4); MEAN CORPUSCULAR HGB CONC 34.9 g/dL (32.0-36.0); MEAN CORPUSCULAR VOLUME 94 fl (80-97); MONOCYTES % (AUTO) 11.7 % (3-13); PLATELET COUNT 396 10^3/uL (150-450); RED BLOOD COUNT 4.92 10^6/uL (4.35-5.55); RED CELL DISTRIBUTION WIDTH 16.8 % (11.5-14.0); SEGMENTED NEUTROPHILS % (AUTO) 32.7 % (42-78); TOTAL CELLS COUNTED % (AUTO) 100 %; WHITE BLOOD COUNT 5.8 10^3/uL (4.0-10.5)
[2017-07-10 21:35] LABS: ALANINE AMINOTRANSFERASE 49 U/L (21-72); ALBUMIN 4.5 g/dL (3.5-5.0); ALKALINE PHOSPHATASE 70 U/L (38-126); ANION GAP 18 (5-19); ASPARTATE AMINO TRANSFERASE 57 U/L (17-59); BILIRUBIN,DIRECT 0.2 mg/dL (0.0-0.4); BILIRUBIN,TOTAL 0.2 mg/dL (0.2-1.3); BLOOD UREA NITROGEN 6 mg/dL (7-20); CALCIUM 9.3 mg/dL (8.4-10.2); CARBON DIOXIDE 24 mmol/L (22-30); CHLORIDE 105 mmol/L (98-107); GLUCOSE 145 mg/dL (75-110); LIPASE 374.7 U/L (23-300); POTASSIUM 4.4 mmol/L (3.6-5.0); SODIUM 146.6 mmol/L (137-145); TOTAL PROTEIN 7.4 g/dL (6.3-8.2)
[2017-07-10 21:55] LABS: ACETAMINOPHEN < 10 ug/mL (10-30); SALICYLATE < 1.0 mg/dL (2.0-20.0)
[2017-07-10 21:57] LABS: ALCOHOL 422 mg/dL (NONE DETECTED)
[2017-07-10 22:03] LABS: CREATINE KINASE MB 0.38 ng/mL (<4.55)
[2017-07-10 22:08] LABS: TROPONIN I < 0.012 ng/mL
[2017-07-10 22:08] LABS: APPEARANCE,URINE CLEAR; BILIRUBIN,URINE NEGATIVE (NEGATIVE); COLOR,URINE STRAW; GLUCOSE, URINE NEGATIVE (NEGATIVE); KETONES,URINE NEGATIVE (NEGATIVE); LEUKOCYTE ESTERASE,URINE NEGATIVE (NEGATIVE); NITRITE,URINE NEGATIVE (NEGATIVE); PROTEIN,URINE NEGATIVE (NEGATIVE); URINE SPECIFIC GRAVITY 1.002; UROBILINOGEN,URINE NEGATIVE mg/dL (<2.0)
[2017-07-10 22:38] LABS: URINE AMPHETAMINES SCREEN NEGATIVE; URINE BARBITURATES SCREEN NEGATIVE; URINE BENZODIAZEPINES SCREEN NEGATIVE; URINE COCAINE SCREEN NEGATIVE; URINE MARIJUANA (THC) SCREEN NEGATIVE; URINE METHADONE SCREEN NEGATIVE; URINE PHENCYCLIDINE SCREEN NEGATIVE
[2017-07-10] MEDS ORDERED: LORAZEPAM INJ 2 MG/1 ML VIAL IM PRN (23:27)
--- NOTE | 2017-07-10 23:40 | EKG REPORT ---
SEVERITY:- BORDERLINE ECG - SINUS RHYTHM BORDERLINE INFERIOR Q WAVES : Confirmed by: Yessica Richey 10-Jul-2017 23:39:50
[2017-07-11] MEDS ORDERED: MIDAZOLAM 2 MG/2 ML INJ IM ONE (00:56)
[2017-07-11] MEDS: LORAZEPAM 1 MG TABLET PO PRN ×7 (07:31→21:24)
--- NOTE | 2017-07-11 10:19 | ER Document Report ---
Doctor's Note Notes: 07/11/17 10:17 Rounds: Chart reviewed and patient interviewed. Patient being evaluated for alcohol abuse and depression and suicidal ideation. Patient lost his in a motor vehicle accident in the past year. Has seizures when he goes into withdrawal. Patient says that he thinks he might be going into withdrawal. His blood alcohol initially was 422. Lab studies are otherwise unremarkable. Vital signs are all normal. Patient appears to be medically stable for transfer or discharge. Patient requested more medication for his withdrawal symptoms. He is currently ordered to have 2 mg of Ativan every 2 hours if needed. We will give him an additional 50 mg of Vistaril, but try to get him his Ativan as ordered. Yessenia Carrizales MD 07/11/17 11:47 Patient vomiting. Complains of shaking. Will give IV fluids, Zofran IV, and Ativan 2 mg IV. 07/11/17 16:14 Patient's blood alcohol should be down to 60-80 at this time. Patient is awake and alert and answers questions appropriately. He says he still shaking badly, especially inside. Still wants to get Ativan every couple of hours. Patient lives alone and does not have any way of getting home. I am concerned about discharging him at this late hour of the day in the condition is in with no one to pick him up or take him home. I have advised that I think the patient will stay overnight and be reevaluated in the. I am going to cut back on his frequency of Ativan is to every 4 hours so that we can get him off of the benzos as soon as possible. Yessenia Carrizales MD
[2017-07-11] MEDS ORDERED: HYDROXYZINE PAMOATE 50 MG CAPSULE PO ONE (10:20)
[2017-07-11] MEDS ORDERED: ONDANSETRON 4 MG TAB.RAPDIS PO ONE (11:30)
[2017-07-11] MEDS ORDERED: LORAZEPAM INJ 2 MG/1 ML VIAL IM ONE (11:31)
[2017-07-11] MEDS ORDERED: NORMAL SALINE 1000 ML 1,000 ML IV ONE ×2 (11:32→11:46)
[2017-07-11] MEDS ORDERED: ONDANSETRON HCL INJ/PF 4 MG/2 ML SDV IV ONE (11:45)
[2017-07-11] MEDS ORDERED: LORAZEPAM INJ 2 MG/1 ML VIAL IV ONE (11:46)
--- NOTE | 2017-07-11 15:01 | PSYCHOLOGICAL NOTE ---
Psych Note - Psych Note Psych Note: Reason for consult: Alcohol Intoxication and SI Contact permissions: None Patient is a 46 year old male who presented to the ED late last evening for Alcohol intoxication (Serum Alcohol Level upon arrival was 422) and SI (plan to shoot self and said he owned firearm). He is well known to this ED and this clinician for similar etiology however chart review indicated he had not been to the ED since December 2016. Patient stated not good, the hallucinations come and go, I have a head ache and am not feeling good when asked how he was. He identified he had been sober from Winter time until 3 days ago when he relapsed and had what sounds like a binger. He admitted to drinking Beer and Vodka yesterday. He stated he came to the ED because he didnt want to have a seizure, can predict when about to happen, often feels light headed. He identified the last detox place he had been to was [facility] in [facility], that he did not have agency follow due to amount of hours he works (typical excuse in past when trying to link to services), that he did go to and his sponsor is a [employer] in [place]. He endorsed SI and commented I am tired of life , I dont want to go through this Hell again, I promised myself if I went through same shit again I would shoot self. He denied owning a firearm, said he has access, was vague about knowing a friend and commented there are lots of people who own guns. Provided education on the importance of both agency intensive programming or at the very least medication management and therapy in conjunction with AA for professional and natural supports systems to help maintain sobriety and get back on track if there is a relapse. He focused on medications not helping hallucinations (sees a mouse, spy camera in room, hearing voices), and asked for more medication. He stated detox would be a good idea. Patient was alert and oriented to person, place and situation. Mood was anxious and depressed with congruent affect (likely related to sobering up from alcohol , if he was in fact sober since Winter and had a 3 day binger drinking as much as he previously did it could affect him more severely). He endorsed SI, denied owning a firearm, stated he knows a friend (said this in past ED visit to this clinician who called friend and the gun was locked up without patient having access) and he then said detox would be a good idea (future thinking, hope, desire to get better). He did not appear to be responding to internal stimuli ( even though her reported seeing things and hearing voices) as evidenced by fair eye contact, answering questions appropriately when addressed, staying on topic and carrying on dialogue conversation. Thought processes were future and goal oriented, linear and organized. Conversational speech was soft in tone but within normal limits for rate, tone and prosody. Intellectual abilities are estimated to be average. Insight, judgment and impulse control were fair as evidenced by having hope and desire to get better and saying detox is a good idea. Made referral to Ragini from call center at [facility]. Informed her that ED Physician was keeping patient overnight for continued sobriety so would do final call in the morning for actual [facility] worker to meet patient at discharge. Diagnosis: 303.00 (10.229) Alcohol Intoxication, With Severe Use Disorder Impression/Plan: Patient is cleared from acute psychiatric services. He has a known history to this ED and this clinician of Chronic Alcohol Use and when highly intoxicated making SI statements. He noted he had been sober from Winter until 3 days ago when he relapsed and had a binge. He noted he drank Vodka and beer last evening. UDS was 422 upon arrival to ED on 07/10/17 at 2050. At 1500 patient should be below legal limit. He stated he wants detox. Linked patient to [facility] for voluntary detox placement. Consulted with Dr. Slaughter regarding the management and care of patient. ED Doctor holding patient overnight to ensure sober and due to concern for medical detox.
[2017-07-11] MEDS ORDERED: ACETAMINOPHEN 325 MG TABLET PO ONE (20:27)
[2017-07-12] MEDS: LORAZEPAM 1 MG TABLET PO PRN ×3 (03:35→13:53)
[2017-07-12] MEDS ORDERED: IBUPROFEN 800 MG TABLET PO ONE (10:55)
--- NOTE | 2017-07-12 12:33 | PSYCHOLOGICAL NOTE ---
Psych Note - Psych Note Psych Note: Reason for consult: Suicidal ideation 46-year-old male with depression, hypertension, COPD, alcohol abuse presents via EMS after EMS reports that he called 911 and stated that he wanted to kill himself. Patient reported that he tried to quit drinking today but experienced a seizure and then began drinking again. Upon my exam patient will only shake his head yes and no to questions. He admits to suicidal ideation but will not tell me what his plan is. Conducted checking with patient: patient disclosed that he had been sober since March and is very despondent about his relapse. He reports that he relapsed because of a "woman." Patient denies that this is the same female that he has had difficulties with the past. He reports that he had a recent breakup. Patient discloses concern about alcohol withdrawal states "my head spinning and I black out." Patient reports continued passive suicidal ideation i.e. no plans means or intent. Behavior health team contacted [facility] to conduct soft handoff for continued services and assistance in receiving substance abuse treatment. 303.90 (F10.20) alcohol use disorder; severe with recent relapse Impression\\plan: Patient IVC was rescinded yesterday and was cleared from acute psychiatric services. He has a known history to this ED and this clinician of Chronic Alcohol Use and when highly intoxicated making SI statements and has a history of chronic passive suicidal ideation; ie no plans means or intent. He noted he had been sober from Winter until 3 days ago when he relapsed and had a binge. He noted drinking Vodka and beer. UDS was 422 upon arrival to ED on 07/10 at 2050. He stated he wants detox. Linked patient to [facility] for voluntary detox placement. Consulted with Dr. Slaughter regarding the management and care of patient.
--- NOTE | 2017-07-12 12:58 | ER Document Report ---
Notes: 07/12/17 12:51 Pt reports that he began drinking again after quitting this past winter. He states that he was just lying down in his home drinking to the point he could not stand up very well. He states that he used to drink up to a half gallon of vodka a day or 20 beers a day and would have auditory and visual hallucinations with his withdrawals but this time he did not drink as much as he used to. I informed patient of plan to discharge home with appointment for [facility] outpatient detox program and a prescription for Librium. He states that he doesn 't have anyone at home and therefore is not comfortable with going home before he starts [facility] as an outpatient. He also denies having the money for a prescription. PE: Lungs with dry cough and expiratory wheeze. No evidence of withdrawal, hallucinations or tremors. (ELOISA MUNSON)
[2017-07-12 13:52] VITALS: BP 135/93
== END 2017-07-12 13:54 | disposition home or self-care (01) ==
LOC: ER 20:25
DX: F32.9 Major depressive disorder, single episode, unspecified (principal); R45.851 Suicidal ideations; F10.129 Alcohol abuse with intoxication, unspecified; Y90.8 Blood alcohol level of 240 mg/100 ml or more; K85.20 Alcohol induced acute pancreatitis without necrosis or infection; R11.10 Vomiting, unspecified; R05 Cough; I10 Essential (primary) hypertension; J44.9 Chronic obstructive pulmonary disease, unspecified; R10.9 Unspecified abdominal pain; F17.200 Nicotine dependence, unspecified, uncomplicated; Z71.6 Tobacco abuse counseling
CPT/HCPCS: 93005; 99285; 96372; 96361; 96374; 96375; 36415; 82553; 80307 ×4; 82550; 83690; 85025; 80053; 81001; 84484; 93010; J2250; J2060; J2405; J7030

== ENCOUNTER 2017-08-11 08:25 | Emergency (ER) | payer OTHER ==
[2017-08-11 08:34] VITALS: BP 139/89
--- NOTE | 2017-08-11 09:25 | RADIOLOGY REPORT (SQ) ---
EXAM DESCRIPTION: FOOT LEFT COMPLETE COMPLETED DATE/TIME: 08/11/2017 9:14 am REASON FOR STUDY: bed 36-r/o break to foot +swelling and tenderness dropped weight on foot. COMPARISON: None. NUMBER OF VIEWS: Three views. TECHNIQUE: AP, lateral and oblique radiographic images acquired of the left foot. LIMITATIONS: None. FINDINGS: MINERALIZATION: Normal. BONES: No acute fracture or dislocation. No worrisome bone lesions. JOINTS: No effusions. SOFT TISSUES: No soft tissue swelling. No foreign body. OTHER: No other significant finding. IMPRESSION: NEGATIVE STUDY OF THE LEFT FOOT. NO RADIOGRAPHIC EVIDENCE OF ACUTE INJURY. TECHNICAL DOCUMENTATION: JOB ID: [id number] [employer]- All Rights Reserved Reading location - IP/workstation name: [email or web address]
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
[2017-08-11] MEDS ORDERED: HYDROCODONE/ACETAMINOPHEN 5-325 MG TABLET PO ONE (09:45)
[2017-08-11] MEDS ORDERED: DIPH/PERTUSS(ACELL)/TETANUS VAC/PF 0.5 ML SYR (>=10YO) IM ONE (09:45)
== END 2017-08-11 10:07 | disposition home or self-care (01) ==
LOC: ER 08:25
DX: S97.82XA Crushing injury of left foot, initial encounter (principal); S90.32XA Contusion of left foot, initial encounter; W20.8XXA Other cause of strike by thrown, projected or falling object, initial encounter; Y99.0 Civilian activity done for income or pay; I10 Essential (primary) hypertension; F17.200 Nicotine dependence, unspecified, uncomplicated; J44.9 Chronic obstructive pulmonary disease, unspecified
CPT/HCPCS: 90471; 90715; 99283

== ENCOUNTER 2017-08-19 13:59 | Emergency (ER) | payer SELFPAY ==
[2017-08-19] MEDS ORDERED: THIAMINE HCL 100 MG, FOLIC ACID 1 MG in NORMAL SALINE 250 ML IV ONE (14:40)
[2017-08-19] MEDS ORDERED: DIAZEPAM INJ 10 MG/2 ML DISP.SYRIN IV ONE (14:44)
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
[2017-08-19] MEDS ORDERED: CLONIDINE HCL 0.1 MG TABLET PO ONE (15:23)
[2017-08-19] MEDS ORDERED: FOLIC ACID 1 MG TABLET PO ONE (15:24)
[2017-08-19] MEDS ORDERED: THIAMINE HCL 100 MG TABLET PO ONE (15:24)
[2017-08-19 15:39] LABS: APPEARANCE,URINE CLEAR; BILIRUBIN,URINE NEGATIVE (NEGATIVE); COLOR,URINE COLORLESS; GLUCOSE, URINE NEGATIVE (NEGATIVE); KETONES,URINE NEGATIVE (NEGATIVE); LEUKOCYTE ESTERASE,URINE NEGATIVE (NEGATIVE); NITRITE,URINE NEGATIVE (NEGATIVE); PROTEIN,URINE NEGATIVE (NEGATIVE); URINE SPECIFIC GRAVITY 1.002; UROBILINOGEN,URINE NEGATIVE mg/dL (<2.0)
[2017-08-19 15:53] LABS: URINE AMPHETAMINES SCREEN NEGATIVE; URINE BARBITURATES SCREEN NEGATIVE; URINE BENZODIAZEPINES SCREEN NEGATIVE; URINE COCAINE SCREEN NEGATIVE; URINE MARIJUANA (THC) SCREEN NEGATIVE; URINE METHADONE SCREEN NEGATIVE; URINE PHENCYCLIDINE SCREEN NEGATIVE
[2017-08-19 15:57] VITALS: BP 132/85
[2017-08-19 16:22] LABS: ABSOLUTE EOSINOPHILS # (AUTO) 0.1 10^3/uL (0.0-0.6); EOSINOPHILS % (AUTO) 1.5 % (0-6); HEMOGLOBIN 16.4 g/dL (13.5-17.0); MEAN CORPUSCULAR HGB CONC 34.8 g/dL (32.0-36.0); TOTAL CELLS COUNTED % (AUTO) 100 %
[2017-08-19 16:28] LABS: ABSOLUTE BASOPHILS # (AUTO) 0.1 10^3/uL (0.0-0.2); ABSOLUTE LYMPHOCYTES (AUTO) 2.6 10^3/uL (0.5-4.7); ABSOLUTE MONOCYTES (AUTO) 0.5 10^3/uL (0.1-1.4); ABSOLUTE NEUT (AUTO) 2.1 10^3/uL (1.7-8.2); BASOPHILS % (AUTO) 1.1 % (0-2); MEAN CORPUSCULAR VOLUME 92 fl (80-97); MONOCYTES % (AUTO) 9.8 % (3-13); PLATELET COUNT 220 10^3/uL (150-450); RED CELL DISTRIBUTION WIDTH 16.3 % (11.5-14.0); SEGMENTED NEUTROPHILS % (AUTO) 39.6 % (42-78); WHITE BLOOD COUNT 5.3 10^3/uL (4.0-10.5)
[2017-08-19 16:33] LABS: ALANINE AMINOTRANSFERASE 278 U/L (21-72); ALBUMIN 4.5 g/dL (3.5-5.0); ALCOHOL 262 mg/dL (NONE DETECTED); ALKALINE PHOSPHATASE 87 U/L (38-126); ANION GAP 15 (5-19); ASPARTATE AMINO TRANSFERASE 311 U/L (17-59); BILIRUBIN,DIRECT 0.4 mg/dL (0.0-0.4); BILIRUBIN,TOTAL 0.6 mg/dL (0.2-1.3); BLOOD UREA NITROGEN 5 mg/dL (7-20); CALCIUM 8.8 mg/dL (8.4-10.2); CARBON DIOXIDE 27 mmol/L (22-30); CHLORIDE 106 mmol/L (98-107); GLUCOSE 95 mg/dL (75-110); INTERNATIONAL RATION (INR) 0.96; LIPASE 630.2 U/L (23-300); POTASSIUM 4.3 mmol/L (3.6-5.0); PROTHROMBIN TIME 13.3 SEC (11.4-15.4); SODIUM 147.7 mmol/L (137-145); TOTAL PROTEIN 7.6 g/dL (6.3-8.2)
--- NOTE | 2017-08-19 16:43 | RADIOLOGY REPORT (SQ) ---
EXAM DESCRIPTION: FOOT LEFT COMPLETE COMPLETED DATE/TIME: 08/19/2017 4:31 pm REASON FOR STUDY: pain COMPARISON: 08/11/2017 NUMBER OF VIEWS: Three views. TECHNIQUE: AP, lateral and oblique radiographic images acquired of the left foot. LIMITATIONS: None. FINDINGS: MINERALIZATION: Normal. BONES: There is a subacute, incomplete, nondisplaced transverse fracture of the 3rd metatarsal distal diaphysis. JOINTS: No effusions. SOFT TISSUES: No soft tissue swelling. No foreign body. OTHER: No other significant finding. IMPRESSION: Nondisplaced transverse fracture of the 3rd metatarsal. TECHNICAL DOCUMENTATION: JOB ID: [id number] [employer]- All Rights Reserved Reading location - IP/workstation name: [email or web address]
--- NOTE | 2017-08-19 18:47 | EKG REPORT ---
SEVERITY:- OTHERWISE NORMAL ECG - SINUS RHYTHM LOW VOLTAGE IN FRONTAL LEADS : Confirmed by: Jose Aguirre MD 19-Aug-2017 18:46:26
== END 2017-08-19 16:36 | disposition left against medical advice (07) ==
LOC: ER 13:59
DX: F10.230 Alcohol dependence with withdrawal, uncomplicated (principal); F17.200 Nicotine dependence, unspecified, uncomplicated; I10 Essential (primary) hypertension; J44.9 Chronic obstructive pulmonary disease, unspecified
CPT/HCPCS: 36415; 80053; 80307; 81001; 83690; 83735; 85025; 85610; 93005; 93010; 99281

== ENCOUNTER 2017-08-30 16:31 | Emergency (ER) | payer SELFPAY ==
[2017-08-30 16:37] VITALS: BP 154/107
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
== END 2017-08-30 17:03 | disposition home or self-care (01) ==
LOC: ER 16:31
DX: F10.10 Alcohol abuse, uncomplicated (principal); I10 Essential (primary) hypertension; J44.9 Chronic obstructive pulmonary disease, unspecified; F17.200 Nicotine dependence, unspecified, uncomplicated
CPT/HCPCS: 99284